=== PATIENT | male | born 1950 | race Caucasian/White ===

== ENCOUNTER 2020-10-05 18:05 | Inpatient (IN) | payer MEDICARE, OTHER ==
--- NOTE | 2020-10-05 18:31 | ED ---
Skin/Abscess/FB HPI - General Stated complaint: male Time Seen by Provider: 10/05/20 18:14 Source: EMS Mode of arrival: EMS - History of Present Illness Initial comments: This is a 69-year-old male who presents emergency department for left buttock abscess. The patient was a transfer from outside hospital or abscess found on computed tomography scan. The patient is really not able to provide much h istory and states he is here because his right arm hurts however according to the notation he's been having redness and swelling to the left buttock region. 4 days. Family's had an abscess in this region before. He's been on Augmentin for 4 days however it seemed to be spinning presented at outside hospital. While there the patient was found to have what appeared to be an abscess which measured 6.3 x 4.1 x 3.4 cm in the left gluteal region. The patient also was found to have a white blood cell count of 14. He was slightly hyponatremic at 129. BUN/creatinine were within normal limits. The patient was started on vancomycin and sent here for possible surgical management. - Related Data Home Medications Medication Instructions Recorded Confirmed Amoxic-Pot Clav 875-125Mg 1 tab PO Q12HR 10/05/20 10/05/20 [Augmentin 875-125] Aspirin EC [Ecotrin Low Dose] 81 mg PO DAILY 10/05/20 10/05/20 Atorvastatin [Lipitor] 10 mg PO HS 10/05/20 10/05/20 Calcium Carbonate/Vitamin D3 1 cap PO DAILY 10/05/20 10/05/20 [Calcium 600 mg-D3 10 Mcg (400 Iu)] Citalopram Hydrobromide [CeleXA] 40 mg PO DAILY 10/05/20 10/05/20 Cyanocobalamin (Vitamin B-12) 1,000 mcg PO DAILY 10/05/20 10/05/20 [Vitamin B-12] Midodrine HCl [ProAmantine] 2.5 mg PO BID 10/05/20 10/05/20 Naproxen 500 mg PO BID 10/05/20 10/05/20 Phenytoin Sodium Extended 100 mg PO BID 10/05/20 10/05/20 [Dilantin] QUEtiapine XR [SEROquel XR] 200 mg PO HS 10/05/20 10/05/20 Sennosides/Docusate Sodium [Senna 1 cap PO DAILY 10/05/20 10/05/20 Plus 8.6-50 mg Softgel] Sodium Chloride Tab 1 gm PO DAILY 10/05/20 10/05/20 hydrOXYzine pamoate [Vistaril] 50 mg PO QID 10/05/20 10/05/20 Allergies Allergy/AdvReac Type Severity Reaction Status Date / Time No Known Allergies Allergy Verified 10/05/20 18:18 Review of Systems ROS Statement: Those systems with pertinent positive or pertinent negative responses have been documented in the HPI. ROS Other: All systems not noted in ROS Statement are negative. Past Medical History Past Medical History: Seizure Disorder Additional Past Medical History / Comment(s): Mentally challenged. General Exam - General Exam Comments Initial Comments: Constitutional: Awake alert Appears comfortable Head: Normocephalic atraumatic Eyes: no conjunctival injection No scleral icterus EOMI Neck: No JVD Supple Heart: Regular rate rhythm normal S1-S2 no murmurs Lungs: Clear to auscultation bilaterally No wheezing No rales Abdomen: Soft nondistended nontender, there is an area of induration and flu ctuance to the left gluteal region which is quite tender to palpation. Extremities: Non edematous DP pulses intact Radial pulses intact Neuro: Awake and alert and at baseline No focal neurologic deficits Psych: Appropriate mood and affect Course Vital Signs 10/05/20 18:11 Temperature 98.8 F Pulse Rate 87 Respiratory 18 Rate Blood Pressure 110/72 O2 Sat by Pulse 98 Oximetry - Reevaluation(s) Reevaluation #1: 10/05/20 19:38 Dr. Cantu in surgery currently. Will call me when he is out. Medical Decision Making - Medical Decision Making Is a 69-year-old male who presents emergency department for a gluteal abscess found on CAT scan outside hospital. The patient was comfortable on arrival. The patient started on Vanco at the outside facility. CT was reviewed and up bloated into our computer system. Blood work was significant for a leukocytosis of 14 and mild hyponatremia. The patient will be started on gentle IV fluids. Nothing by mouth after midnight. I did attempt to contact Dr. acntu however he was in surgery. He will call me back when he is out. Dr. Jovel was notified and accepts the patient for admission. He requested infectious disease people consult that. The patient will be started on Ancef 1 g every 8. Patient is stable for admission at this time. Disposition Clinical Impression: Gluteal abscess Disposition: ADMITTED IP TO THIS HOSP Condition: Stable Referrals: Solomon Ring MD [Primary Care Provider] - 1-2 days
[2020-10-05] MEDS ORDERED: NALOXONE 0.4 MG/ML 1 ML VIAL IV PRN ×2 (20:31→21:40)
[2020-10-05] MEDS ORDERED: MORPHINE SULFATE 4 MG/ML SYRINGE IV PRN (20:31)
[2020-10-05] MEDS ORDERED: LIDOCAINE 1% INJ 10MG/ML (20 ML MDV) SQ ONE (20:56)
--- NOTE | 2020-10-05 21:15 | P.GSCN ---
History of Present Illness Consult date: 10/05/20 History of present illness: Patient was a transfer from [place]. Patient had abscess in his left gluteal regions been going on for several days. He's had abscess before in the past. He does have developmental delay and skull chopper is at bedside. Past Medical History Past Medical History: Seizure Disorder Additional Past Medical History / Comment(s): Mentally challenged. Medications and Allergies Home Medications Medication Instructions Recorded Confirmed Type Amoxic-Pot Clav 875-125Mg 1 tab PO Q12HR 10/05/20 10/05/20 History [Augmentin 875-125] Aspirin EC [Ecotrin Low Dose] 81 mg PO DAILY 10/05/20 10/05/20 History Atorvastatin [Lipitor] 10 mg PO HS 10/05/20 10/05/20 History Calcium Carbonate/Vitamin D3 1 cap PO DAILY 10/05/20 10/05/20 History [Calcium 600 mg-D3 10 Mcg (400 Iu)] Citalopram Hydrobromide [CeleXA] 40 mg PO DAILY 10/05/20 10/05/20 History Cyanocobalamin (Vitamin B-12) 1,000 mcg PO DAILY 10/05/20 10/05/20 History [Vitamin B-12] Midodrine HCl [ProAmantine] 2.5 mg PO BID 10/05/20 10/05/20 History Naproxen 500 mg PO BID 10/05/20 10/05/20 History Phenytoin Sodium Extended 100 mg PO BID 10/05/20 10/05/20 History [Dilantin] QUEtiapine XR [SEROquel XR] 200 mg PO HS 10/05/20 10/05/20 History Sennosides/Docusate Sodium [Senna 1 cap PO DAILY 10/05/20 10/05/20 History Plus 8.6-50 mg Softgel] Sodium Chloride Tab 1 gm PO DAILY 10/05/20 10/05/20 History hydrOXYzine pamoate [Vistaril] 50 mg PO QID 10/05/20 10/05/20 History Allergies Allergy/AdvReac Type Severity Reaction Status Date / Time No Known Allergies Allergy Verified 10/05/20 18:18 Surgical - Exam Osteopathic Statement: *. No significant issues noted on an osteopathic structural exam other than those noted in the History and Physical/Consult. Vital Signs Temp Pulse Resp BP Pulse Ox 98.8 F 87 18 110/72 98 10/05/20 18:11 10/05/20 18:11 10/05/20 18:11 10/05/20 18:11 10/05/20 18:11 - General well developed, well nourished, no distress - Respiratory normal expansion, normal respiratory effort - Abdomen Abdomen: soft, non tender - Integumentary 6 cm x 4 cm area of induration with fluctuance on the left gluteal region. - Psychiatric oriented to time, oriented to person, oriented to place Assessment and Plan Assessment: Left gluteal abscess Plan: Incision and drainage of left gluteal abscess, IV antibiotics
--- NOTE | 2020-10-05 21:16 | P.PCN ---
Date of Procedure: 10/05/20 Preoperative Diagnosis: Left gluteal abscess Postoperative Diagnosis: Same Anesthesia: local Surgeon: Kimani Cantu Estimated Blood Loss (ml): 5 Condition: stable Disposition: floor Description of Procedure: Timeout performed correct patient correct procedure correct site was verified he was thoroughly prepped and draped local anesthetic was used to anesthetize skin and subcutaneous tissues directly over the abscess site on 11 blade scalpel was used to make an incision directly over the abscess site approximately 3 cm long. Copious amounts of purulent material were expressed loculations were broken up patient tolerated this well. Hemostasis was achieved sterile dressing was applied. Cultures were taken by the nurse.
[2020-10-05] MEDS: SODIUM CHLORIDE 0.9% 1,000 ML IV SCH (21:19)
[2020-10-05] MEDS ORDERED: CALCIUM CARBONATE 500 MG CHEWABLE PO PRN (21:40)
[2020-10-05] MEDS ORDERED: ACETAMINOPHEN TAB 325 MG TAB PO PRN (21:40)
[2020-10-05] MEDS ORDERED: ONDANSETRON 4 MG/2 ML VIAL IVP PRN (21:40)
[2020-10-05] MEDS ORDERED: LACTULOSE 20 GM/30 ML CUP PO PRN (21:40)
[2020-10-05] MEDS ORDERED: MAG HYDROX/AL HYDROX/SIMETH 30 ML CUP PO PRN (21:40)
[2020-10-05] MEDS ORDERED: traMADol 50 MG TAB PO PRN (21:40)
--- NOTE | 2020-10-05 21:50 | P.HPIM ---
History of Present Illness H&P Date: 10/05/20 Chief Complaint: Left buttock abscess History of presenting complaint: This is a pleasant 69-year-old patient who follows with visiting physicians Dr. Ring. Most of the history is obtained by the caregiver at the bedside. Patient is a resident of [facility]. About a week ago, patient was noted to have a pimple on the right buttock. It progressively enlarged. Became more painful. This questionable fever at home. [facility] A computed tomography scan showed an area of abscess fluid tracking down the thigh. Patient had been on Augmentin. Dr. laura from general surgery was consulted. In the ER he drained the abscess and significant amount of pus was obtained. At her baseline patient can't feed himself, ambulatory. Takes his own decisions. in place for a court-appointed guardian, is in the process. Review of systems: GEN.: Tired EYES: None HEENT: None NECK: None RESPIRATORY: None CARDIOVASCULAR: None GASTROINTESTINAL: None GENITOURINARY: None MUSCULOSKELETAL: As above LYMPHATICS: None HEMATOLOGICAL: None PSYCHIATRY: Some mental retardation, from both NEUROLOGICAL: None Past medical history to include: Hyperlipidemia, osteoarthritis, hypothyroid, anxiety Social history: At [facility]. Alcohol occasionally. Does smoke occasionally. Takes his own decisions Family history: Reviewed, noncontributory to presentation Physical examination: VITAL SIGNS: 98.1, 75, 16, 127/73, 94% room air GENERAL: BMI 25.1, laying in bed, awake, EYES: Pupils equal. Conjunctiva normal. HEENT: External appearance of nose and ears normal, oral cavity grossly normal. NECK: JVD not raised; masses not palpable. HEART: First and second heart sounds are normal; no edema. LUNGS: Respiratory rate normal; clear to auscultation. ABDOMEN: Soft, nontender, liver spleen not palpable, no masses palpable. PSYCH: Patient is able to answer questions simplel. MUSCULAR skeletal: area of dressing over the left buttock abscess that was drained some surrounding cellulitis and tenderness NEUROLOGICAL: Cranial nerves grossly intact; no facial asymmetry, power and sensation grossly intact, slight dysarthria. LYMPHATICS: No lymph nodes palpable in the axilla and neck INVESTIGATIONS, reviewed in the clinical context: Reviewed from Health System: WBC 14 hemoglobin 11 platelets 372 sodium 129 potassium 3.6 BUN 27 creatinine 0.8 Computed tomography scan of the pelvis: Left hip DJD, left buttock abscess with fluid tracking down the thigh Assessment and plan: -Left buttock abscess that started as a pimple growing for a period of one week. This was drained in the ER by Dr. laura. Patient has no risk factors for MRSA and therefore use IV Ancef. Anti-inflammatory. 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 Await cultures. IV Ancef 1 g every 8. Resume home medications. Dressing changes per surgery. Lovenox for DVT prophylaxis. Care was discussed with the caregiver at the bedside. Past Medical History Past Medical History: Seizure Disorder Additional Past Medical History / Comment(s): Mentally challenged. Medications and Allergies Home Medications Medication Instructions Recorded Confirmed Type Amoxic-Pot Clav 875-125Mg 1 tab PO Q12HR 10/05/20 10/05/20 History [Augmentin 875-125] Aspirin EC [Ecotrin Low Dose] 81 mg PO DAILY 10/05/20 10/05/20 History Atorvastatin [Lipitor] 10 mg PO HS 10/05/20 10/05/20 History Calcium Carbonate/Vitamin D3 1 cap PO DAILY 10/05/20 10/05/20 History [Calcium 600 mg-D3 10 Mcg (400 Iu)] Citalopram Hydrobromide [CeleXA] 40 mg PO DAILY 10/05/20 10/05/20 History Cyanocobalamin (Vitamin B-12) 1,000 mcg PO DAILY 10/05/20 10/05/20 History [Vitamin B-12] Midodrine HCl [ProAmantine] 2.5 mg PO BID 10/05/20 10/05/20 History Naproxen 500 mg PO BID 10/05/20 10/05/20 History Phenytoin Sodium Extended 100 mg PO BID 10/05/20 10/05/20 History [Dilantin] QUEtiapine XR [SEROquel XR] 200 mg PO HS 10/05/20 10/05/20 History Sennosides/Docusate Sodium [Senna 1 cap PO DAILY 10/05/20 10/05/20 History Plus 8.6-50 mg Softgel] Sodium Chloride Tab 1 gm PO DAILY 10/05/20 10/05/20 History hydrOXYzine pamoate [Vistaril] 50 mg PO QID 10/05/20 10/05/20 History Allergies Allergy/AdvReac Type Severity Reaction Status Date / Time No Known Allergies Allergy Verified 10/05/20 18:18 Physical Exam Vitals: Vital Signs Temp Pulse Resp BP Pulse Ox 10/05/20 21:17 85 18 101/60 96 10/05/20 18:11 98.8 F 87 18 110/72 98 Intake and Output 10/05/20 10/05/20 10/05/20 06:59 14:59 22:59 Other: Weight 79.379 kg
[2020-10-05] MEDS: hydrOXYzine pamoate 25 MG CAP PO SCH (22:47)
[2020-10-05] MEDS: FAMOTIDINE 20 MG TAB PO SCH (22:48)
[2020-10-05] MEDS: NAPROXEN 250 MG TAB PO SCH (23:18)
[2020-10-06] MEDS: CYANOCOBALAMIN 500 MCG TAB PO SCH (08:47)
[2020-10-06] MEDS: MIDODRINE 5 MG TAB PO SCH ×2 (08:47→20:22)
[2020-10-06] MEDS: hydrOXYzine pamoate 25 MG CAP PO SCH ×4 (08:47→20:22)
[2020-10-06] MEDS: CITALOPRAM HYDROBROMIDE 20 MG TAB PO SCH (08:47)
[2020-10-06] MEDS: SENNOSIDES-DOCUSATE SODIUM 1 EACH TAB PO SCH (08:47)
[2020-10-06] MEDS: ASPIRIN 81 MG PO SCH (08:48)
[2020-10-06] MEDS: FAMOTIDINE 20 MG TAB PO SCH ×2 (08:48→20:22)
[2020-10-06] MEDS: NAPROXEN 250 MG TAB PO SCH ×3 (08:48→20:23)
[2020-10-06] MEDS: PHENYTOIN SODIUM EXTENDED 100 MG CAP PO SCH ×2 (08:49→20:22)
[2020-10-06] MEDS: SODIUM CHLORIDE TAB 1 GM TAB PO SCH (08:49)
[2020-10-06 09:12] LABS: HCT 24.7 % (39.6-50.0); HGB 8.3 g/dL (13.0-17.0); MCH 28.6 pg (27.0-32.0); MCHC 33.6 g/dL (32.0-37.0); MCV 85.2 fL (80.0-97.0); Mean Platelet Volume 9.8 fL (9.5-12.2); Platelet Count 312 X 10*3/uL (140-440); WBC 16.02 X 10*3/uL (4.50-10.00)
[2020-10-06 09:50] LABS: African American GFR (CKD) 118.9 (60.0-200.0); Albumin 2.8 g/dL (3.80-4.90); Albumin/Globulin Ratio 1.47 (1.60-3.17); Anion Gap 6.2 mmol/L (4.00-12.00); Calcium 7.7 mg/dL (8.7-10.3); Carbon Dioxide 24.8 mmol/L (21.6-31.8); Globulin 1.9 g/dL (1.6-3.3); Non-African American GFR(CKD) 102.6 (60.0-200.0); Potassium 3.8 mmol/L (3.5-5.5); Total Bilirubin 0.5 mg/dL (0.3-1.2); Total Protein 4.7 g/dL (6.2-8.2)
[2020-10-06 10:15] LABS: Basophils # (A) 0.05 X 10*3/uL (0.00-0.10); Basophils % (A) 0.3 %; Eosinophils # (A) 0.28 X 10*3/uL (0.04-0.35); Eosinophils % (A) 1.7 %; Lymphocytes % (A) 3.7 %; Monocytes % (A) 6.2 %; Neutrophils # (A) 13.89 X 10*3/uL (1.80-7.70); Neutrophils % (A) 86.9 %
--- NOTE | 2020-10-06 11:45 | P.PN ---
Subjective Progress Note Date: 10/06/20 Patient doing well pain improved today Objective - Vital Signs Vital signs: Vital Signs Temp 98.9 F 10/06/20 07:41 Pulse 81 10/06/20 07:41 Resp 17 10/06/20 07:41 BP 111/69 10/06/20 07:41 Pulse Ox 96 10/06/20 07:41 Intake & Output 10/05/20 10/06/20 10/06/20 18:59 06:59 18:59 Weight 79.379 kg 79.379 kg Other: Voiding Method Diaper Diaper # Voids 1 # Bowel Movements 0 - Constitutional General appearance: Present: cooperative - Cardiovascular Rhythm: regular - Integumentary Integumentary Comment(s): Abscess with purulent drainage, erythemia and induration improved - Labs CBC & Chem 7: 10/06/20 05:36 10/06/20 05:36 Labs: Abnormal Lab Results - Last 24 Hours (Table) 10/06/20 10/06/20 Range/Units 05:36 05:36 WBC 16.02 H (4.50-10.00) X 10*3/uL RBC 2.90 L (4.40-5.60) X 10*6/uL Hgb 8.3 L (13.0-17.0) g/dL Hct 24.7 L (39.6-50.0) % Immature Gran # 0.20 H (0.00-0.04) X 10*3/uL Neutrophils # 13.89 H (1.80-7.70) X 10*3/uL Lymphocytes # 0.60 L (0.90-5.00) X 10*3/uL Sodium 130 L (135-145) mmol/L BUN/Creatinine Ratio 25.00 H (12.00-20.00) Ratio Glucose 127 H (70-110) mg/dL Calcium 7.7 L (8.7-10.3) mg/dL Alkaline Phosphatase 151 H (41-126) U/L Total Protein 4.7 L (6.2-8.2) g/dL Albumin 2.80 L (3.80-4.90) g/dL Albumin/Globulin Ratio 1.47 L (1.60-3.17) g/dL Microbiology - Last 24 Hours (Table) 10/05/20 21:30 Gram Stain - Preliminary Other - Other Wound Culture - Preliminary 10/05/20 21:30 Anaerobic Culture - Preliminary Buttock Assessment and Plan Assessment: Left gluteal abscess Plan: Cont abx per primary, cultures pending
--- NOTE | 2020-10-06 14:26 | P.PN ---
Progress Note - Text Progress Note Date: 10/06/20 Chief Complaint: Left buttock abscess History of presenting complaint: This is a pleasant 69-year-old patient who follows with visiting physicians Dr. Ring. Most of the history is obtained by the caregiver at the bedside. Patient is a resident of [facility]. About a week ago, patient was noted to have a pimple on the right buttock. It progressively enlarged. Became more painful. This questionable fever at home. Patient was taken down to [facility]. A computed tomography scan showed an area of abscess fluid tracking down the thigh. Patient had been on Augmentin. Dr. laura from general surgery was consulted. In the ER he drained the abscess and significant amount of pus was obtained. At her baseline patient can't feed himself, ambulatory. Takes his own decisions. in place for a court-appointed guardian, is in the process. October 06: Reclining in bed. Comfortable. Pain well controlled. Oral intake fair. On IV Ancef. Review of systems: Was done for constitutional, cardiovascular, GI, pulmonary. relevant finding as above Active Medications Acetaminophen (Acetaminophen Tab 325 Mg Tab) 650 mg PO Q6HR PRN PRN Reason: Mild Pain or Fever > 100.5 Al Hydroxide/Mg Hydroxide (Mag Hydrox/Al Hydrox/Simeth 30 Ml Cup) 15 ml PO Q6HR PRN PRN Reason: Indigestion Aspirin (Aspirin 81 Mg) 81 mg PO DAILY COUNT INCLUDES THE [facility] Last Admin: 10/06/20 08:48 Dose: 81 mg Documented by: Atorvastatin Calcium (Atorvastatin 10 Mg Tab) 10 mg PO [facility] Calcium Carbonate/Glycine (Calcium Carbonate 500 Mg Chewable) 1,000 mg PO Q4HR PRN PRN Reason: Dyspepsia Citalopram Hydrobromide (Citalopram Hydrobromide 20 Mg Tab) 40 mg PO DAILY COUNT INCLUDES THE [facility] Last Admin: 10/06/20 08:47 Dose: 40 mg Documented by: Cyanocobalamin (Cyanocobalamin 500 Mcg Tab) 1,000 mcg PO DAILY COUNT INCLUDES THE [facility] Last Admin: 10/06/20 08:47 Dose: 1,000 mcg Documented by: Famotidine (Famotidine 20 Mg Tab) 20 mg PO BID COUNT INCLUDES THE [facility] Last Admin: 10/06/20 08:48 Dose: 20 mg Documented by: Hydroxyzine Pamoate (Hydroxyzine Pamoate 25 Mg Cap) 50 mg PO QID COUNT INCLUDES THE [facility] Last Admin: 10/06/20 08:47 Dose: 50 mg Documented by: Cefazolin Sodium 1,000 mg/ (Sodium Chloride) 50 mls @ 100 mls/hr IVPB Q8H COUNT INCLUDES THE [facility] Last Admin: 10/06/20 05:22 Dose: 100 mls/hr Documented by: Sodium Chloride (Saline 0.9%) 1,000 mls @ 75 mls/hr IV .[id number] COUNT INCLUDES THE [facility] Last Admin: 10/05/20 21:19 Dose: 75 mls/hr Documented by: Lactulose (Lactulose 20 Gm/30 Ml Cup) 20 gm PO DAILY PRN PRN Reason: Constipation Midodrine (Midodrine 5 Mg Tab) 2.5 mg PO BID COUNT INCLUDES THE [facility] Last Admin: 10/06/20 08:47 Dose: 2.5 mg Documented by: Morphine Sulfate (Morphine Sulfate 4 Mg/Ml Syringe) 4 mg IV Q4HR PRN PRN Reason: Severe Pain Naloxone HCl (Naloxone 0.4 Mg/Ml 1 Ml Vial) 0.2 mg IV Q2M PRN PRN Reason: Opioid Reversal Naloxone HCl (Naloxone 0.4 Mg/Ml 1 Ml Vial) 0.2 mg IV Q2M PRN PRN Reason: Opioid Reversal Naproxen (Naproxen 250 Mg Tab) 250 mg PO TID COUNT INCLUDES THE [facility] Last Admin: 10/06/20 08:48 Dose: 250 mg Documented by: Ondansetron HCl (Ondansetron 4 Mg/2 Ml Vial) 4 mg IVP Q8HR PRN PRN Reason: Nausea And Vomiting Phenytoin Sodium (Phenytoin Sodium Extended 100 Mg Cap) 100 mg PO BID COUNT INCLUDES THE [facility] Last Admin: 10/06/20 08:49 Dose: 100 mg Documented by: Quetiapine Fumarate (Quetiapine 100 Mg Tab) 100 mg PO BID COUNT INCLUDES THE [facility] Senna/Docusate Sodium (Sennosides-Docusate Sodium 1 Each Tab) 1 each PO DAILY COUNT INCLUDES THE [facility] Last Admin: 10/06/20 08:47 Dose: 1 each Documented by: Sodium Chloride (Sodium Chloride Tab 1 Gm Tab) 1 gm PO DAILY COUNT INCLUDES THE [facility] Last Admin: 10/06/20 08:49 Dose: 1 gm Documented by: Tramadol HCl (Tramadol 50 Mg Tab) 50 mg PO Q6H PRN PRN Reason: Moderate Pain Past medical history to include: Hyperlipidemia, osteoarthritis, hypothyroid, anxiety Social history: At [facility] home. Alcohol occasionally. Does smoke occasionally. Takes his own decisions Family history: Reviewed, noncontributory to presentation Physical examination: VITAL SIGNS: 98.9, 81, 17, 111/69, 96% room air GENERAL: Reclining in bed, comfortable EYES: Pupils equal. Conjunctiva normal.. NECK: JVD not raised; masses not palpable. HEART: First and second heart sounds are normal; no edema. LUNGS: Respiratory rate normal; clear to auscultation. ABDOMEN: Soft, nontender, liver spleen not palpable, no masses palpable. PSYCH: Patient is able to answer questions simple. MUSCULAR skeletal: area of dressing over the left buttock abscess ,some surrounding cellulitis and tenderness NEUROLOGICAL: dysarthria. INVESTIGATIONS, reviewed in the clinical context: October 06: WBC 16 hemoglobin 8.3 potassium 3.8 sodium 1:30 creatinine 0.6 Reviewed from [facility]: WBC 14 hemoglobin 11 platelets 372 sodium 129 potassium 3.6 BUN 27 creatinine 0.8 Computed tomography scan of the pelvis: Left hip DJD, left buttock abscess with fluid tracking down the thigh Assessment and plan: -Left buttock abscess that started as a pimple growing for a period of one week. This was drained in the ER by Dr. laura. Wound care per surgery. IV Ancef. 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 Await wound culture. Other medications to continue.
[2020-10-06] MEDS: SODIUM CHLORIDE 0.9% 1,000 ML IV SCH (16:20)
[2020-10-06] MEDS: QUEtiapine 100 MG TAB PO SCH (20:22)
[2020-10-06] MEDS: ATORVASTATIN 10 MG TAB PO SCH (20:22)
[2020-10-06] MEDS ORDERED: VANCOMYCIN IV PER PHARMACY 1 EACH MISC MISCELLANE PRN (21:52)
--- NOTE | 2020-10-06 21:57 | P.CONS ---
History of Present Illness - Reason for Consult Consult date: 10/06/20 left gluteal abscess Requesting physician: Jaime Jovel - Chief Complaint left gluteal pain and redness x 4 days - History of Present Illness History of present illness : Patient is a 69-year male presenting to the ER last evening for evaluation of left gluteal abscess apparently the patient has been going redness and swelling to left gluteal area for about 4 days patient has been treated with an oral Augmentin for 4 days however they seem to be getting worse patient was taken to an outside facility the patient did have a CT with evidence of a left gluteal abscess patient received a dose of vancomycin at their facility and patient subsequently transferred to [facility] for further evaluation patient was evaluated by general surgery and the patient did have a drainage of the left gluteal abscess cultures were obtained and the patient was started on cefazolin was admitted to hospital especially was consulted for further management of antibiotic therapy patient on presentation to the hospital is afebrile and no fever has been recorded subseq uently did have white count of 16.02 left shift kidney function was normal Review of system: Positive point has been mentioned in HPI rest of the systems are negative Past medical history : Reviewed, documented below Past surgical history : Reviewed, documented below Social history: Reviewed, documented below Medications: Reviewed, as documented below GENERAL DESCRIPTION: Elderly male lying in bed, no distress. No tachypnea or accessory muscle of respiration use. HEENT: Shows Pallor , no scleral icterus. Oral mucous membrane is dry. NECK: Trachea central, no thyromegaly. LUNGS: Unlabored breathing. Clear to auscultation anteriorly. No wheeze or crackle. HEART: S1, S2, regular rate and rhythm. ABDOMEN: Soft, no tenderness , guarding or rigidity EXTREMITIES: No edema of feet. SKIN: No rash, no masses palpable. Left gluteal area did have a swelling and redness wound is currently packed NEUROLOGICAL: The patient is awake, alert, oriented x1, mood and affect normal. LABS AND RADIOLOGY: Reviewed results see below Assessment : Patient with a left gluteal abscess s/p drainage in this patient seem to have failed to respond to the outpatient oral Augmentin therapy concern for possible community associated MRSA, patient did have normal kidney function Plan: 1-discontinue cefazolin 2-vancomycin pharmacy to dose her with a target trough of 15 while watching her kidney function and Vanco trough closely. 3-iodoform packing of the wound We will follow on clinical condition and cultures to further adjust medication if needed Thank you for this consultation we will follow the patient along with you Past Medical History Past Medical History: Seizure Disorder Additional Past Medical History / Comment(s): Mentally challenged. History of Any Multi-Drug Resistant Organisms: None Reported Additional Past Surgical History / Comment(s): Left arm broken; surgical repair. Shunt placed 1970. Past Anesthesia/Blood Transfusion Reactions: No Reported Reaction Additional Psychological History / Comment(s): pt. mentally challenged. Smoking Status: Former smoker Medications and Allergies Home Medications Medication Instructions Recorded Confirmed Type Amoxic-Pot Clav 875-125Mg 1 tab PO Q12HR 10/05/20 10/05/20 History [Augmentin 875-125] Aspirin EC [Ecotrin Low Dose] 81 mg PO DAILY 10/05/20 10/05/20 History Atorvastatin [Lipitor] 10 mg PO HS 10/05/20 10/05/20 History Calcium Carbonate/Vitamin D3 1 cap PO DAILY 10/05/20 10/05/20 History [Calcium 600 mg-D3 10 Mcg (400 Iu)] Citalopram Hydrobromide [CeleXA] 40 mg PO DAILY 10/05/20 10/05/20 History Cyanocobalamin (Vitamin B-12) 1,000 mcg PO DAILY 10/05/20 10/05/20 History [Vitamin B-12] Midodrine HCl [ProAmantine] 2.5 mg PO BID 10/05/20 10/05/20 History Naproxen 500 mg PO BID 10/05/20 10/05/20 History Phenytoin Sodium Extended 100 mg PO BID 10/05/20 10/05/20 History [Dilantin] QUEtiapine XR [SEROquel XR] 200 mg PO HS 10/05/20 10/05/20 History Sennosides/Docusate Sodium [Senna 1 cap PO DAILY 10/05/20 10/05/20 History Plus 8.6-50 mg Softgel] Sodium Chloride Tab 1 gm PO DAILY 10/05/20 10/05/20 History hydrOXYzine pamoate [Vistaril] 50 mg PO QID 10/05/20 10/05/20 History Allergies Allergy/AdvReac Type Severity Reaction Status Date / Time No Known Allergies Allergy Verified 10/05/20 18:18 Physical Exam Vitals: Vital Signs Temp Pulse Pulse Resp BP BP Pulse Ox 10/06/20 07:41 98.9 F 81 17 111/69 96 10/06/20 02:00 98.3 F 91 18 109/56 96 10/05/20 21:48 98.3 F 85 18 112/58 99 10/05/20 21:17 85 18 101/60 96 10/05/20 18:11 98.8 F 87 18 110/72 98 Intake and Output 10/05/20 10/06/20 10/06/20 22:59 06:59 14:59 Other: Voiding Method Diaper Diaper # Voids 1 # Bowel Movements 0 Weight 79.379 kg Results CBC & Chem 7: 10/06/20 05:36 10/06/20 05:36 Labs: Abnormal Lab Results - Last 24 Hours (Table) 10/06/20 10/06/20 Range/Units 05:36 05:36 WBC 16.02 H (4.50-10.00) X 10*3/uL RBC 2.90 L (4.40-5.60) X 10*6/uL Hgb 8.3 L (13.0-17.0) g/dL Hct 24.7 L (39.6-50.0) % Immature Gran # 0.20 H (0.00-0.04) X 10*3/uL Neutrophils # 13.89 H (1.80-7.70) X 10*3/uL Lymphocytes # 0.60 L (0.90-5.00) X 10*3/uL Sodium 130 L (135-145) mmol/L BUN/Creatinine Ratio 25.00 H (12.00-20.00) Ratio Glucose 127 H (70-110) mg/dL Calcium 7.7 L (8.7-10.3) mg/dL Alkaline Phosphatase 151 H (41-126) U/L Total Protein 4.7 L (6.2-8.2) g/dL Albumin 2.80 L (3.80-4.90) g/dL Albumin/Globulin Ratio 1.47 L (1.60-3.17) g/dL Microbiology - Last 24 Hours (Table) 10/05/20 21:30 Gram Stain - Preliminary Other - Other Wound Culture - Preliminary 10/05/20 21:30 Anaerobic Culture - Preliminary Buttock
[2020-10-06] MEDS ORDERED: VANCOMYCIN 1,500 MG in SODIUM CHLORIDE 0.9% 250 ML IVPB ONE (22:00)
[2020-10-06] MEDS ORDERED: VANCOMYCIN 1,500 MG in SODIUM CHLORIDE 0.9% 250 ML IVPB SCH (23:45)
[2020-10-07] MEDS: SODIUM CHLORIDE 0.9% 1,000 ML IV SCH ×2 (02:28→20:03)
[2020-10-07] MEDS: VANCOMYCIN 1,500 MG in SODIUM CHLORIDE 0.9% 250 ML IVPB SCH ×3 (05:38→20:45)
[2020-10-07 07:04] LABS: African American GFR (CKD) >90 (>60 ml/min/1.73 sqM); Anion Gap 6 mmol/L; Blood Urea Nitrogen 14 mg/dL (9-20); Carbon Dioxide 22 mmol/L (22-30); Chloride 100 mmol/L (98-107); Glucose 80 mg/dL (74-99); Non-African American GFR(CKD) >90 (>60 ml/min/1.73 sqM); Potassium 3.5 mmol/L (3.5-5.1); Sodium 128 mmol/L (137-145)
[2020-10-07] MEDS: MIDODRINE 5 MG TAB PO SCH ×2 (09:21→20:43)
[2020-10-07] MEDS: CITALOPRAM HYDROBROMIDE 20 MG TAB PO SCH (09:21)
[2020-10-07] MEDS: ASPIRIN 81 MG PO SCH (09:21)
[2020-10-07] MEDS: CYANOCOBALAMIN 500 MCG TAB PO SCH (09:21)
[2020-10-07] MEDS: SENNOSIDES-DOCUSATE SODIUM 1 EACH TAB PO SCH (09:21)
[2020-10-07] MEDS: FAMOTIDINE 20 MG TAB PO SCH ×2 (09:22→20:43)
[2020-10-07] MEDS: hydrOXYzine pamoate 25 MG CAP PO SCH ×4 (09:22→20:44)
[2020-10-07] MEDS: QUEtiapine 100 MG TAB PO SCH ×2 (09:24→20:44)
[2020-10-07] MEDS: SODIUM CHLORIDE TAB 1 GM TAB PO SCH ×2 (09:24→20:44)
[2020-10-07] MEDS: NAPROXEN 250 MG TAB PO SCH ×3 (09:24→20:44)
[2020-10-07] MEDS: PHENYTOIN SODIUM EXTENDED 100 MG CAP PO SCH ×2 (09:24→20:44)
--- NOTE | 2020-10-07 10:29 | P.PN ---
Subjective Progress Note Date: 10/07/20 Patient doing well pain improved today, cultures growing persumed MRSA Objective - Vital Signs Vital signs: Vital Signs Temp 98.5 F 10/07/20 08:00 Pulse 77 10/07/20 08:00 Resp 18 10/07/20 08:00 BP 160/71 10/07/20 08:00 Pulse Ox 95 10/07/20 08:00 Intake & Output 10/06/20 10/07/20 10/07/20 18:59 06:59 18:59 Intake Total 900 Balance 900 Intake: Intake, IV Titration 900 Amount Sodium Chloride 0.9% 1, 900 000 ml @ 75 mls/hr IV . [id number] [facility] Rx#:[id number] Other: Voiding Method Diaper Diaper Diaper # Voids 2 # Bowel Movements 0 - Constitutional General appearance: Present: cooperative - Labs CBC & Chem 7: 10/06/20 05:36 10/07/20 05:27 Labs: Abnormal Lab Results - Last 24 Hours (Table) 10/07/20 Range/Units 05:27 Sodium 128 L (137-145) mmol/L Creatinine 0.51 L (0.66-1.25) mg/dL Osmolality 264 L (280-301) mosm/kg Calcium 8.0 L (8.4-10.2) mg/dL Microbiology - Last 24 Hours (Table) 10/05/20 21:30 Gram Stain - Preliminary Other - Other Wound Culture - Preliminary Presumptive MRSA Assessment and Plan Assessment: Left gluteal abscess Plan: Cont abx per primary/ID, cultures pending. Consult to wound care for further wound managment. No plans for any further surgical intervention
--- NOTE | 2020-10-07 14:18 | P.PN ---
Progress Note - Text Progress Note Date: 10/07/20 Chief Complaint: Left buttock abscess History of presenting complaint: This is a pleasant 69-year-old patient who follows with visiting physicians Dr. Ring. Most of the history is obtained by the caregiver at the bedside. Patient is a resident of [facility]. About a week ago, patient was noted to have a pimple on the right buttock. It progressively enlarged. Became more painful. This questionable fever at home. Patient was taken down to [facility]. A computed tomography scan showed an area of abscess fluid tracking down the thigh. Patient had been on Augmentin. Dr. laura from general surgery was consulted. In the ER he drained the abscess and significant amount of pus was obtained. At her baseline patient can't feed himself, ambulatory. Takes his own decisions. in place for a court-appointed guardian, is in the process. October 06: Reclining in bed. Comfortable. Pain well controlled. Oral intake fair. On IV Ancef. October 07: Reclining chair. Oral intake good. Pain well controlled. On IV vancomycin Wound care per ID/surgery. Wound cultures presumptive MRSA Review of systems: Was done for constitutional, cardiovascular, GI, pulmonary. relevant finding as above Active Medications Acetaminophen (Acetaminophen Tab 325 Mg Tab) 650 mg PO Q6HR PRN PRN Reason: Mild Pain or Fever > 100.5 Al Hydroxide/Mg Hydroxide (Mag Hydrox/Al Hydrox/Simeth 30 Ml Cup) 15 ml PO Q6HR PRN PRN Reason: Indigestion Aspirin (Aspirin 81 Mg) 81 mg PO DAILY [facility] Last Admin: 10/07/20 09:21 Dose: 81 mg Documented by: Atorvastatin Calcium (Atorvastatin 10 Mg Tab) 10 mg PO HS [facility] Last Admin: 10/06/20 20:22 Dose: 10 mg Documented by: Calcium Carbonate/Glycine (Calcium Carbonate 500 Mg Chewable) 1,000 mg PO Q4HR PRN PRN Reason: Dyspepsia Citalopram Hydrobromide (Citalopram Hydrobromide 20 Mg Tab) 40 mg PO DAILY [facility] Last Admin: 10/07/20 09:21 Dose: 40 mg Documented by: Cyanocobalamin (Cyanocobalamin 500 Mcg Tab) 1,000 mcg PO DAILY [facility] Last Admin: 10/07/20 09:21 Dose: 1,000 mcg Documented by: Famotidine (Famotidine 20 Mg Tab) 20 mg PO BID [facility] Last Admin: 10/07/20 09:22 Dose: 20 mg Documented by: Hydroxyzine Pamoate (Hydroxyzine Pamoate 25 Mg Cap) 50 mg PO QID [facility] Last Admin: 10/07/20 09:22 Dose: 50 mg Documented by: Sodium Chloride (Saline 0.9%) 1,000 mls @ 75 mls/hr IV .[id number] [facility] Last Admin: 10/07/20 02:28 Dose: Not Given Documented by: Vancomycin HCl 1,500 mg/ (Sodium Chloride) 250 mls @ 125 mls/hr IVPB Q8H [facility] Last Admin: 10/07/20 05:38 Dose: 125 mls/hr Documented by: Lactulose (Lactulose 20 Gm/30 Ml Cup) 20 gm PO DAILY PRN PRN Reason: Constipation Midodrine (Midodrine 5 Mg Tab) 2.5 mg PO BID [facility] Last Admin: 10/07/20 09:21 Dose: Not Given Documented by: Miscellaneous Information (Vancomycin Trough Due 1 Each Misc) 0 each MISCELLANE DIRECTED ONE Stop: 10/08/20 05:01 Morphine Sulfate (Morphine Sulfate 4 Mg/Ml Syringe) 4 mg IV Q4HR PRN PRN Reason: Severe Pain Naloxone HCl (Naloxone 0.4 Mg/Ml 1 Ml Vial) 0.2 mg IV Q2M PRN PRN Reason: Opioid Reversal Naloxone HCl (Naloxone 0.4 Mg/Ml 1 Ml Vial) 0.2 mg IV Q2M PRN PRN Reason: Opioid Reversal Naproxen (Naproxen 250 Mg Tab) 250 mg PO TID [facility] Last Admin: 10/07/20 09:24 Dose: 250 mg Documented by: Ondansetron HCl (Ondansetron 4 Mg/2 Ml Vial) 4 mg IVP Q8HR PRN PRN Reason: Nausea And Vomiting Phenytoin Sodium (Phenytoin Sodium Extended 100 Mg Cap) 100 mg PO BID [facility] Last Admin: 10/07/20 09:24 Dose: 100 mg Documented by: Quetiapine Fumarate (Quetiapine 100 Mg Tab) 100 mg PO BID [facility] Last Admin: 10/07/20 09:24 Dose: 100 mg Documented by: Senna/Docusate Sodium (Sennosides-Docusate Sodium 1 Each Tab) 1 each PO DAILY [facility] Last Admin: 10/07/20 09:21 Dose: 1 each Documented by: Sodium Chloride (Sodium Chloride Tab 1 Gm Tab) 1 gm PO DAILY [facility] Last Admin: 10/07/20 09:24 Dose: 1 gm Documented by: Tramadol HCl (Tramadol 50 Mg Tab) 50 mg PO Q6H PRN PRN Reason: Moderate Pain Past medical history to include: Hyperlipidemia, osteoarthritis, hypothyroid, anxiety Social history: At [facility]. Alcohol occasionally. Does smoke occasionally. Takes his own decisions Family history: Reviewed, noncontributory to presentation Physical examination: VITAL SIGNS: 98.5, 77, 18, 160/71, 95% room air GENERAL: Reclining in chair, comfortable EYES: Pupils equal. Conjunctiva normal.. NECK: JVD not raised; masses not palpable. HEART: First and second heart sounds are normal; no edema. LUNGS: Respiratory rate normal; clear to auscultation. ABDOMEN: Soft, nontender, liver spleen not palpable, no masses palpable. PSYCH: Patient is able to answer questions simple. MUSCULAR skeletal: area of dressing over the left buttock abscess ,some surrounding cellulitis and tenderness NEUROLOGICAL: dysarthria. INVESTIGATIONS, reviewed in the clinical context: October 07: Sodium 128 potassium 3.5 creatinine 0.51. Serum osmolality 264 Wound culture: Presumptive MRSA October 06: WBC 16 hemoglobin 8.3 potassium 3.8 sodium 1:30 creatinine 0.6 Reviewed from [facility]: WBC 14 hemoglobin 11 platelets 372 sodium 129 potassium 3.6 BUN 27 creatinine 0.8 Computed tomography scan of the pelvis: Left hip DJD, left buttock abscess with fluid tracking down the thigh Assessment and plan: -Left buttock abscess that started as a pimple growing for a period of one week. This was drained in the ER by Dr. laura. Wound care per surgery. IV vancomycin. 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 Other medications to continue. Wound care. DC IV fluids
--- NOTE | 2020-10-07 18:23 | PN ---
PROGRESS NOTE DATE OF SERVICE: 10/07/2020 REASON FOR FOLLOWUP: Left gluteal MRSA abscess and cellulitis. INTERVAL HISTORY: The patient is currently afebrile. The patient is breathing comfortably on room air. The patient is unable to provide any history. No vomiting, diarrhea or other changes reported by the nursing staff. PHYSICAL EXAMINATION: On examination, blood pressure 151/73 with a pulse of 69, temperature 97.6. He is 100% on room air. GENERAL DESCRIPTION: General description is an elderly male lying in bed in no distress. RESPIRATORY SYSTEM: Unlabored breathing. Clear to auscultation anteriorly. HEART: S1, S2. Regular rate and rhythm. ABDOMEN: Soft. No tenderness. Left gluteal area did have some swelling and redness. Wound is not that deep that may need to be packed. Did have some drainage. LABS: BUN of 14, creatinine 0.51. DIAGNOSTIC IMPRESSION AND PLAN: Patient with a left gluteal abscess, status post drainage. Still having extensive infection. The patient vancomycin. Will need a PICC line for outpatient antibiotic. Dry protective dressing to the area to absorb the drainage and continue supportive care. MMODL / IJN: [id number] /
[2020-10-07] MEDS: ATORVASTATIN 10 MG TAB PO SCH (20:43)
[2020-10-08] MEDS ORDERED: VANCOMYCIN TROUGH DUE 1 EACH MISC MISCELLANE ONE (05:00)
[2020-10-08 05:27] LABS: Basophils % (A) 0 %; Eosinophils # (A) 0.3 k/uL (0-0.7); Eosinophils % (A) 3 %; HCT 27.4 % (39.0-53.0); HGB 9.9 gm/dL (13.0-17.5); Lymphocytes # (A) 0.7 k/uL (1.0-4.8); Lymphocytes % (A) 7 %; MCH 30.8 pg (25.0-35.0); MCHC 36.1 g/dL (31.0-37.0); MCV 85.4 fL (80.0-100.0); Mean Platelet Volume 6.9; Monocytes # (A) 0.3 k/uL (0-1.0); Monocytes % (A) 3 %; Neutrophils % (A) 84 %; Platelet Count 432 k/uL (150-450); RDW 13.7 % (11.5-15.5); WBC 10.6 k/uL (3.8-10.6)
[2020-10-08 05:45] LABS: African American GFR (CKD) >90 (>60 ml/min/1.73 sqM); Anion Gap 9 mmol/L; Blood Urea Nitrogen 13 mg/dL (9-20); Calcium 8.3 mg/dL (8.4-10.2); Carbon Dioxide 21 mmol/L (22-30); Chloride 98 mmol/L (98-107); Glucose 86 mg/dL (74-99); Non-African American GFR(CKD) >90 (>60 ml/min/1.73 sqM); Potassium 3.6 mmol/L (3.5-5.1); Sodium 128 mmol/L (137-145)
[2020-10-08] MEDS: VANCOMYCIN 1,500 MG in SODIUM CHLORIDE 0.9% 250 ML IVPB SCH ×3 (06:45→21:53)
[2020-10-08] MEDS: CITALOPRAM HYDROBROMIDE 20 MG TAB PO SCH (08:07)
[2020-10-08] MEDS: FAMOTIDINE 20 MG TAB PO SCH ×2 (08:07→21:55)
[2020-10-08] MEDS: hydrOXYzine pamoate 25 MG CAP PO SCH ×4 (08:07→21:54)
[2020-10-08] MEDS: MIDODRINE 5 MG TAB PO SCH ×2 (08:08→21:54)
[2020-10-08] MEDS: ASPIRIN 81 MG PO SCH (08:08)
[2020-10-08] MEDS: SENNOSIDES-DOCUSATE SODIUM 1 EACH TAB PO SCH (08:08)
[2020-10-08] MEDS: CYANOCOBALAMIN 500 MCG TAB PO SCH (08:08)
[2020-10-08] MEDS: QUEtiapine 100 MG TAB PO SCH ×2 (08:10→22:00)
[2020-10-08] MEDS: NAPROXEN 250 MG TAB PO SCH ×3 (08:10→21:55)
[2020-10-08] MEDS: PHENYTOIN SODIUM EXTENDED 100 MG CAP PO SCH ×2 (08:10→22:00)
[2020-10-08] MEDS: SODIUM CHLORIDE TAB 1 GM TAB PO SCH ×2 (08:11→22:00)
--- NOTE | 2020-10-08 12:59 | P.PN ---
Progress Note - Text Progress Note Date: 10/08/20 Chief Complaint: Left buttock abscess History of presenting complaint: This is a pleasant 69-year-old patient who follows with visiting physicians Dr. Ring. Most of the history is obtained by the caregiver at the bedside. Patient is a resident of [facility]. About a week ago, patient was noted to have a pimple on the right buttock. It progressively enlarged. Became more painful. This questionable fever at home. Patient was taken down to [facility]. A computed tomography scan showed an area of abscess fluid tracking down the thigh. Patient had been on Augmentin. Dr. laura from general surgery was consulted. In the ER he drained the abscess and significant amount of pus was obtained. At her baseline patient can't feed himself, ambulatory. Takes his own decisions. in place for a court-appointed guardian, is in the process. October 06: Reclining in bed. Comfortable. Pain well controlled. Oral intake fair. On IV Ancef. October 07: Reclining chair. Oral intake good. Pain well controlled. On IV vancomycin Wound care per ID/surgery. Wound cultures presumptive MRSA October 08: Laying in bed. Pain control. On IV vancomycin. Still significant cellulitis wound per ID. oral intake good Review of systems: Was done for constitutional, cardiovascular, GI, pulmonary. relevant finding as above Active Medications Acetaminophen (Acetaminophen Tab 325 Mg Tab) 650 mg PO Q6HR PRN PRN Reason: Mild Pain or Fever > 100.5 Al Hydroxide/Mg Hydroxide (Mag Hydrox/Al Hydrox/Simeth 30 Ml Cup) 15 ml PO Q6HR PRN PRN Reason: Indigestion Aspirin (Aspirin 81 Mg) 81 mg PO DAILY [facility] Last Admin: 10/08/20 08:08 Dose: 81 mg Documented by: Atorvastatin Calcium (Atorvastatin 10 Mg Tab) 10 mg PO HS [facility] Last Admin: 10/07/20 20:43 Dose: 10 mg Documented by: Calcium Carbonate/Glycine (Calcium Carbonate 500 Mg Chewable) 1,000 mg PO Q4HR PRN PRN Reason: Dyspepsia Citalopram Hydrobromide (Citalopram Hydrobromide 20 Mg Tab) 40 mg PO DAILY [facility] Last Admin: 10/08/20 08:07 Dose: 40 mg Documented by: Cyanocobalamin (Cyanocobalamin 500 Mcg Tab) 1,000 mcg PO DAILY [facility] Last Admin: 10/08/20 08:08 Dose: 1,000 mcg Documented by: Famotidine (Famotidine 20 Mg Tab) 20 mg PO BID [facility] Last Admin: 10/08/20 08:07 Dose: 20 mg Documented by: Hydroxyzine Pamoate (Hydroxyzine Pamoate 25 Mg Cap) 50 mg PO QID [facility] Last Admin: 10/08/20 12:04 Dose: 50 mg Documented by: Vancomycin HCl 1,500 mg/ (Sodium Chloride) 250 mls @ 125 mls/hr IVPB Q12H [facility] Last Admin: 10/08/20 08:11 Dose: 125 mls/hr Documented by: Lactulose (Lactulose 20 Gm/30 Ml Cup) 20 gm PO DAILY PRN PRN Reason: Constipation Midodrine (Midodrine 5 Mg Tab) 2.5 mg PO BID [facility] Last Admin: 10/08/20 08:08 Dose: 2.5 mg Documented by: Miscellaneous Information (Vancomycin Trough Due 1 Each Misc) 0 each MISCELLANE DIRECTED ONE Stop: 10/09/20 08:01 Morphine Sulfate (Morphine Sulfate 4 Mg/Ml Syringe) 4 mg IV Q4HR PRN PRN Reason: Severe Pain Naloxone HCl (Naloxone 0.4 Mg/Ml 1 Ml Vial) 0.2 mg IV Q2M PRN PRN Reason: Opioid Reversal Naloxone HCl (Naloxone 0.4 Mg/Ml 1 Ml Vial) 0.2 mg IV Q2M PRN PRN Reason: Opioid Reversal Naproxen (Naproxen 250 Mg Tab) 250 mg PO TID [facility] Last Admin: 10/08/20 08:10 Dose: 250 mg Documented by: Ondansetron HCl (Ondansetron 4 Mg/2 Ml Vial) 4 mg IVP Q8HR PRN PRN Reason: Nausea And Vomiting Phenytoin Sodium (Phenytoin Sodium Extended 100 Mg Cap) 100 mg PO BID [facility] Last Admin: 10/08/20 08:10 Dose: 100 mg Documented by: Quetiapine Fumarate (Quetiapine 100 Mg Tab) 100 mg PO BID [facility] Last Admin: 10/08/20 08:10 Dose: 100 mg Documented by: Senna/Docusate Sodium (Sennosides-Docusate Sodium 1 Each Tab) 1 each PO DAILY [facility] Last Admin: 10/08/20 08:08 Dose: 1 each Documented by: Sodium Chloride (Sodium Chloride Tab 1 Gm Tab) 1 gm PO BID [facility] Last Admin: 10/08/20 08:11 Dose: 1 gm Documented by: Tramadol HCl (Tramadol 50 Mg Tab) 50 mg PO Q6H PRN PRN Reason: Moderate Pain Past medical history to include: Hyperlipidemia, osteoarthritis, hypothyroid, anxiety Social history: At [facility]. Alcohol occasionally. Does smoke occasionally. Takes his own decisions Family history: Reviewed, noncontributory to presentation Physical examination: VITAL SIGNS: 98, 73, 16, 166/64, 96% room air GENERAL: Laying in bed comfortable EYES: Pupils equal. Conjunctiva normal.. NECK: JVD not raised; masses not palpable. HEART: First and second heart sounds are normal; no edema. LUNGS: Respiratory rate normal; clear to auscultation. ABDOMEN: Soft, nontender, liver spleen not palpable, no masses palpable. PSYCH: Patient is able to answer questions simple. MUSCULAR skeletal: area of dressing over the left buttock abscess , surrounding cellulitis and tenderness NEUROLOGICAL: dysarthria. INVESTIGATIONS, reviewed in the clinical context: October 08: WBC 10.6 hemoglobin 9.9 sodium 128 potassium 3.6 creatinine 0.4 to October 07: Sodium 128 potassium 3.5 creatinine 0.51. Serum osmolality 264 Wound culture: MRSA October 06: WBC 16 hemoglobin 8.3 potassium 3.8 sodium 1:30 creatinine 0.6 Reviewed from [facility]: WBC 14 hemoglobin 11 platelets 372 sodium 129 potassium 3.6 BUN 27 creatinine 0.8 Computed tomography scan of the pelvis: Left hip DJD, left buttock abscess with fluid tracking down the thigh Assessment and plan: -Left buttock abscess that started as a pimple growing for a period of one week. drained in the ER by Dr. laura. Slow to respond Wound care per surgery. IV vancomycin. 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 Follow with ID and surgery. Discussed with patient.
--- NOTE | 2020-10-08 19:22 | PN ---
PROGRESS NOTE DATE OF SERVICE: 10/08/2020 REASON FOR FOLLOWUP: Left gluteal abscess, MRSA. INTERVAL HISTORY: The patient is currently afebrile. The patient is breathing comfortably. No chest pain or cough. No vomiting. No abdominal pain. No diarrhea or worsening pain to the left gluteal area. PHYSICAL EXAMINATION: On examination, blood pressure 119/68 with a pulse of 71, temperature 97.6. He is 95% on room air. GENERAL DESCRIPTION: General description is an elderly male lying in bed in no distress. RESPIRATORY SYSTEM: Unlabored breathing. Clear to auscultation anteriorly. HEART: S1, S2. Regular rate and rhythm. ABDOMEN: Soft. No tenderness. LABS: Hemoglobin is 9.8, white count 10.7, BUN of 13, creatinine 0.42. Vancomycin trough is slightly elevated. DIAGNOSTIC IMPRESSION AND PLAN: Patient with a left gluteal abscess and MRSA, status post drainage. Plan at this time is to continue vancomycin. He will need a PICC line for outpatient IV antibiotic therapy in view of extensive infection. Continue supportive care. MMODL / IJN: [id number] /
[2020-10-08] MEDS: ATORVASTATIN 10 MG TAB PO SCH (21:54)
[2020-10-09 07:54] VITALS: TEMP 97.9
[2020-10-09] MEDS ORDERED: VANCOMYCIN TROUGH DUE 1 EACH MISC MISCELLANE ONE (08:00)
[2020-10-09 08:42] LABS: African American GFR (CKD) >90 (>60 ml/min/1.73 sqM); Anion Gap 5 mmol/L; Blood Urea Nitrogen 9 mg/dL (9-20); Calcium 7.8 mg/dL (8.4-10.2); Carbon Dioxide 28 mmol/L (22-30); Chloride 97 mmol/L (98-107); Glucose 114 mg/dL (74-99); Non-African American GFR(CKD) >90 (>60 ml/min/1.73 sqM); Potassium 3.2 mmol/L (3.5-5.1); Sodium 130 mmol/L (137-145)
[2020-10-09] MEDS: CYANOCOBALAMIN 500 MCG TAB PO SCH (09:04)
[2020-10-09] MEDS: SENNOSIDES-DOCUSATE SODIUM 1 EACH TAB PO SCH (09:04)
[2020-10-09] MEDS: MIDODRINE 5 MG TAB PO SCH (09:04)
[2020-10-09] MEDS: ASPIRIN 81 MG PO SCH (09:04)
[2020-10-09] MEDS: CITALOPRAM HYDROBROMIDE 20 MG TAB PO SCH (09:05)
[2020-10-09] MEDS: FAMOTIDINE 20 MG TAB PO SCH (09:05)
[2020-10-09] MEDS: SODIUM CHLORIDE TAB 1 GM TAB PO SCH (09:05)
[2020-10-09] MEDS: hydrOXYzine pamoate 25 MG CAP PO SCH ×3 (09:05→18:08)
[2020-10-09] MEDS: NAPROXEN 250 MG TAB PO SCH ×2 (09:06→15:11)
[2020-10-09] MEDS: QUEtiapine 100 MG TAB PO SCH (09:06)
[2020-10-09] MEDS: PHENYTOIN SODIUM EXTENDED 100 MG CAP PO SCH (09:07)
[2020-10-09] MEDS: VANCOMYCIN 1,500 MG in SODIUM CHLORIDE 0.9% 250 ML IVPB SCH (09:11)
[2020-10-09] MEDS ORDERED: POTASSIUM CHLORIDE ER 20 MEQ TAB.ER PO STA (12:21)
--- NOTE | 2020-10-09 12:22 | P.CONS ---
History of Present Illness - Reason for Consult Consult date: 10/09/20 wound care - History of Present Illness This is a 69-year-old pleasant male being seen on 4 cells for a nonhealing ulceration to the left gluteus. She has history of developmental delay and seizure disorder. Patient has had an abscess to the past. He underwent a I&D of the gluteus abscess on 10/05/2020. He is currently on IV antibiotics. At this time the left gluteus has a incisional opening measuring approximately 0.2 x 0.6 x 1 cm. The ulceration is draining serous fluid. The wound shows some ecchymosis. It is tender to touch. Review Of Systems: Constitutional: No fever, no chills, no night sweats. No weight change. No weakness, fatigue or lethargy. No daytime sleepiness. Integumentary:reports wounds, no lesions. No rash or pruritus. No unusual bruising. No change in hair or nails. Physical exam: General Appearance: Alert, cooperative, no distress, appears stated age. Skin: See HPI all other Skin color, texture, tugor normal, no rashes or lesions. Neurologic: Alert oriented x3 Assessment: 1. Nonhealing ulceration to left gluteus with fat layer exposure Plan: 1. Apply absorptive silver rope moistened, ABDs and secured with paper tape. Change Thursday. Thank you for the consultation any questions please contact the wound care center DNP note has been reviewed and discussed with Dr. Dewitt and the impression and plan of care has been directed as dictated. Past Medical History Past Medical History: Seizure Disorder Additional Past Medical History / Comment(s): Mentally challenged. History of Any Multi-Drug Resistant Organisms: None Reported Additional Past Surgical History / Comment(s): Left arm broken; surgical repair. Shunt placed 1970. Past Anesthesia/Blood Transfusion Reactions: No Reported Reaction Additional Psychological History / Comment(s): pt. mentally challenged. Smoking Status: Former smoker Medications and Allergies Home Medications Medication Instructions Recorded Confirmed Type Amoxic-Pot Clav 875-125Mg 1 tab PO Q12HR 10/05/20 10/05/20 History [Augmentin 875-125] Aspirin EC [Ecotrin Low Dose] 81 mg PO DAILY 10/05/20 10/05/20 History Atorvastatin [Lipitor] 10 mg PO HS 10/05/20 10/05/20 History Calcium Carbonate/Vitamin D3 1 cap PO DAILY 10/05/20 10/05/20 History [Calcium 600 mg-D3 10 Mcg (400 Iu)] Citalopram Hydrobromide [CeleXA] 40 mg PO DAILY 10/05/20 10/05/20 History Cyanocobalamin (Vitamin B-12) 1,000 mcg PO DAILY 10/05/20 10/05/20 History [Vitamin B-12] Midodrine HCl [ProAmantine] 2.5 mg PO BID 10/05/20 10/05/20 History Naproxen 500 mg PO BID 10/05/20 10/05/20 History Phenytoin Sodium Extended 100 mg PO BID 10/05/20 10/05/20 History [Dilantin] QUEtiapine XR [SEROquel XR] 200 mg PO HS 10/05/20 10/05/20 History Sennosides/Docusate Sodium [Senna 1 cap PO DAILY 10/05/20 10/05/20 History Plus 8.6-50 mg Softgel] Sodium Chloride Tab 1 gm PO DAILY 10/05/20 10/05/20 History hydrOXYzine pamoate [Vistaril] 50 mg PO QID 10/05/20 10/05/20 History Allergies Allergy/AdvReac Type Severity Reaction Status Date / Time No Known Allergies Allergy Verified 10/05/20 18:18 Physical Exam Vitals: Vital Signs Temp Pulse Resp BP Pulse Ox 10/09/20 07:53 97.9 F 64 18 126/82 97 10/09/20 02:00 98.9 F 93 129/78 94 L 10/08/20 20:00 98.3 F 77 18 162/73 93 L 10/08/20 14:00 97.6 F 71 16 119/68 95 Intake and Output 10/08/20 10/09/20 10/09/20 22:59 06:59 14:59 Intake Total 250 Balance 250 Intake: Intake, IV Titration 250 Amount Vancomycin 1,500 mg In 250 Sodium Chloride 0.9% 250 ml @ 125 mls/hr IVPB Q12H [facility] Rx#:[id number] Other: Voiding Method Diaper Diaper Incontinent Incontinent # Voids 3 3 # Bowel Movements 2 1 Results CBC & Chem 7: 10/08/20 05:07 10/09/20 08:15 Labs: Abnormal Lab Results - Last 24 Hours (Table) 10/09/20 Range/Units 08:15 Sodium 130 L (137-145) mmol/L Potassium 3.2 L (3.5-5.1) mmol/L Chloride 97 L (98-107) mmol/L Creatinine 0.43 L (0.66-1.25) mg/dL Glucose 114 H (74-99) mg/dL Calcium 7.8 L (8.4-10.2) mg/dL Microbiology - Last 24 Hours (Table) 10/05/20 21:30 Gram Stain - Final Other - Other Wound Culture - Final Methicillin resist S. aureus 10/07/20 05:27 Blood Culture - Preliminary Blood No Growth after 48 hours Assessment and Plan (1) Non-healing ulcer of buttock with fat layer exposed Current Visit: Yes Status: Acute Code(s): L98.412 - NON-PRESSURE CHRONIC ULCER OF BUTTOCK WITH FAT LAYER EXPOSED SNOMED Code(s): 72219173 (2) Gluteal abscess Current Visit: Yes Status: Acute Code(s): L02.31 - CUTANEOUS ABSCESS OF BUTTOCK SNOMED Code(s): 62073497
[2020-10-09 15:13] VITALS: BP 137/72; PULSE 69; RESP 16
--- NOTE | 2020-10-09 16:34 | P.DS ---
Providers Date of admission: 10/05/20 20:32 Expected date of discharge: 10/09/20 Attending physician: Jaime Jovel Consults: 10/05/20 20:30 Consult Physician Routine Consulting Provider: Kimani Cantu Consult Reason/Comments: gluteal abscess Do you want consulting provider notified?: Yes Consult Physician Routine Consulting Provider: Raquel Pedro Consult Reason/Comments: Gluteal abscess Do you want consulting provider notified?: Yes Primary care physician: [facility] Course: Chief Complaint: Left buttock abscess History of presenting complaint: This is a pleasant 69-year-old patient who follows with visiting physicians Dr. Ring. Most of the history is obtained by the caregiver at the bedside. Patient is a resident of [facility]. About a week ago, patient was noted to have a pimple on the right buttock. It progressively enlarged. Became more painful. This questionable fever at home. Patient was taken down to [facility]. A computed tomography scan showed an area of abscess fluid tracking down the thigh. Patient had been on Augmentin. Dr. cantu from general surgery was consulted. In the ER he drained the abscess and significant amount of pus was obtained. At her baseline patient can't feed himself, ambulatory. Takes his own decisions. in place for a court-appointed guardian, is in the process. October 06: Reclining in bed. Comfortable. Pain well controlled. Oral intake fair. On IV Ancef. October 07: Reclining chair. Oral intake good. Pain well controlled. On IV vancomycin Wound care per ID/surgery. Wound cultures presumptive MRSA October 08: Laying in bed. Pain control. On IV vancomycin. Still significant cellulitis wound per ID. oral intake good October 09: Negative bed. Comfortable. Discussed with the patient. On IV vancomycin. Wound being better. Discussed with Dr. Pedro from ID. Patient okay to be discharged with IV antibiotics. Coordinated with trimming caser. Discussion and discharge planning more than 35 minutes Consultation: Dr. Pedro from CT Dr. cantu from general surgery Past medical history to include: Hyperlipidemia, osteoarthritis, hypothyroid, anxiety Social history: At [facility]. Alcohol occasionally. Does smoke occasionally. Takes his own decisions Family history: Reviewed, noncontributory to presentation Physical examination: VITAL SIGNS: 97.9, 69, 16, 137 with 72, 97% room air GENERAL: Laying in bed comfortable EYES: Pupils equal. Conjunctiva normal.. NECK: JVD not raised; masses not palpable. HEART: First and second heart sounds are normal; no edema. LUNGS: Respiratory rate normal; clear to auscultation. ABDOMEN: Soft, nontender, liver spleen not palpable, no masses palpable. PSYCH: Patient is able to answer questions simple. MUSCULAR skeletal: Left buttock wound and surrounding cellulitis improving NEUROLOGICAL: dysarthria. INVESTIGATIONS, reviewed in the clinical context: October 09: Potassium 3.2 creatinine 0.43 vancomycin level XVIII.1 October 08: WBC 10.6 hemoglobin 9.9 sodium 128 potassium 3.6 creatinine 0.4 to October 07: Sodium 128 potassium 3.5 creatinine 0.51. Serum osmolality 264 Wound culture: MRSA October 06: WBC 16 hemoglobin 8.3 potassium 3.8 sodium 1:30 creatinine 0.6 Reviewed from [facility]: WBC 14 hemoglobin 11 platelets 372 sodium 129 potassium 3.6 BUN 27 creatinine 0.8 Computed tomography scan of the pelvis: Left hip DJD, left buttock abscess with fluid tracking down the thigh Assessment and plan: -Left buttock abscess that started as a pimple growing for a period of one week. drained in the ER by Dr. cantu. Improving Wound care per surgery. IV vancomycin. Cultures- MRSA. Patient has a midline. Discharged home with IV vancomycin. 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 Pending a court-appointed POA -Hyperlipidemia Pravachol 40 mg daily -Hypothyroid Synthroid 88 g daily -Anxiety not otherwise specified Celexa 10 mg daily -Chronic hyponatremia Increased salt tablets 2 twice a day Disposition: [facility] Patient Condition at Discharge: Stable Plan - Discharge Summary Discharge Rx Participant: No New Discharge Prescriptions: New Famotidine [Pepcid] 20 mg PO BID #60 tab Acetaminophen Tab [Tylenol] 650 mg PO Q6HR PRN tab PRN Reason: Mild Pain Or Fever > 100.5 Continue Aspirin EC [Ecotrin Low Dose] 81 mg PO DAILY Phenytoin Sodium Extended [Dilantin] 100 mg PO BID hydrOXYzine pamoate [Vistaril] 50 mg PO QID Citalopram Hydrobromide [CeleXA] 40 mg PO DAILY Calcium Carbonate/Vitamin D3 [Calcium 600 mg-D3 10 Mcg (400 Iu)] 1 cap PO DAILY Cyanocobalamin (Vitamin B-12) [Vitamin B-12] 1,000 mcg PO DAILY Sennosides/Docusate Sodium [Senna Plus 8.6-50 mg Softgel] 1 cap PO DAILY QUEtiapine XR [SEROquel XR] 200 mg PO HS Naproxen 500 mg PO BID Midodrine HCl [ProAmantine] 2.5 mg PO BID Atorvastatin [Lipitor] 10 mg PO HS Changed Sodium Chloride Tab 1 gm PO BID #60 tab Discontinued Amoxic-Pot Clav 875-125Mg [Augmentin 875-125] 1 tab PO Q12HR Discharge Medication List Aspirin EC [Ecotrin Low Dose] 81 mg PO DAILY 10/05/20 [History] Atorvastatin [Lipitor] 10 mg PO HS 10/05/20 [History] Calcium Carbonate/Vitamin D3 [Calcium 600 mg-D3 10 Mcg (400 Iu)] 1 cap PO DAILY 10/05/20 [History] Citalopram Hydrobromide [CeleXA] 40 mg PO DAILY 10/05/20 [History] Cyanocobalamin (Vitamin B-12) [Vitamin B-12] 1,000 mcg PO DAILY 10/05/20 [History] Midodrine HCl [ProAmantine] 2.5 mg PO BID 10/05/20 [History] Naproxen 500 mg PO BID 10/05/20 [History] Phenytoin Sodium Extended [Dilantin] 100 mg PO BID 10/05/20 [History] QUEtiapine XR [SEROquel XR] 200 mg PO HS 10/05/20 [History] Sennosides/Docusate Sodium [Senna Plus 8.6-50 mg Softgel] 1 cap PO DAILY 10/05/20 [History] hydrOXYzine pamoate [Vistaril] 50 mg PO QID 10/05/20 [History] Acetaminophen Tab [Tylenol] 650 mg PO Q6HR PRN tab 10/09/20 [Rx] Famotidine [Pepcid] 20 mg PO BID #60 tab 10/09/20 [Rx] Sodium Chloride Tab 1 gm PO BID #60 tab 10/09/20 [Rx] Follow up Appointment(s)/Referral(s): [facility], [NON-STAFF] - ([facility] will call to arrange the time for your first visit. Your first visit will by on 10/10/20. ) [facility],Infusion [NON-STAFF] - ([facility] will deliver supplies today - 10/09/20. They will call before delivery. ) Solomon Ring MD [Primary Care Provider] - 1-2 days (please call office when patient at home) Raquel Pedro MD [STAFF PHYSICIAN] - 10/23/20 1:45 pm Patient Instructions/Handouts: Abscess Incision and Drainage (DC) Activity/Diet/Wound Care/Special Instructions: bmp /cbc - 5 days apply aquacel rope moistened to gluteal abscess, abd pad, secure with paper tape. change thursday, , thursday.
--- NOTE | 2020-10-09 19:38 | PN ---
PROGRESS NOTE DATE OF SERVICE: 10/09/2020 REASON FOR FOLLOWUP: Left gluteal MRSA abscess and cellulitis. INTERVAL HISTORY: The patient is currently afebrile. The patient is breathing comfortably. No vomiting. No diarrhea or any changes reported by nursing staff. The patient is unable to provide any history. PHYSICAL EXAMINATION: Blood pressure 137/72 with a pulse of 69. Temperature is 97.9. He is 97% on room air. General description is an elderly male lying in bed in no distress. Respiratory system: Unlabored breathing, clear to auscultation anteriorly. Heart S1, S2. Regular rate and rhythm. Abdomen soft, no tenderness. Extremities: No edema of the feet. LABS: Hemoglobin is 9.1, white count 10.2, BUN of 9, creatinine 0.43. DIAGNOSTIC IMPRESSION AND PLAN: Patient with MRSA left gluteal abscess status post drainage, finishing therapy with vancomycin pharmacy to dose for 2 weeks and close outpatient followup. MMODL / IJN: [id number] /
== END 2020-10-09 18:52 | disposition home health service (06) | DRG 603 ==
LOC: EC 18:05 → 4SSUR 20:32
PROVIDERS: ADMIT Hospitalist; ATTEND Hospitalist
PROC: 0J990ZX Drainage of Buttock Subcutaneous Tissue and Fascia, Open Approach, Diagnostic (ICD-10-PCS; principal; 2020-10-05)
PROC: 05HB33Z Insertion of Infusion Device into Right Basilic Vein, Percutaneous Approach (ICD-10-PCS; 2020-10-08 14:05)
DX: L02.31 Cutaneous abscess of buttock (principal); E87.1 Hypo-osmolality and hyponatremia; G40.909 Epilepsy, unspecified, not intractable, without status epilepticus; L98.412 Non-pressure chronic ulcer of buttock with fat layer exposed; B95.62 Methicillin resistant Staphylococcus aureus infection as the cause of diseases classified elsewhere; L03.317 Cellulitis of buttock; E78.5 Hyperlipidemia, unspecified; E03.9 Hypothyroidism, unspecified; F41.9 Anxiety disorder, unspecified; G31.84 Mild cognitive impairment of uncertain or unknown etiology; F17.200 Nicotine dependence, unspecified, uncomplicated; M16.12 Unilateral primary osteoarthritis, left hip; F79 Unspecified intellectual disabilities; F89 Unspecified disorder of psychological development; Z79.82 Long term (current) use of aspirin; Z79.1 Long term (current) use of non-steroidal anti-inflammatories (NSAID); Z79.899 Other long term (current) drug therapy; Z87.81 Personal history of (healed) traumatic fracture
CPT/HCPCS: 36410; 76937; 80048; 80053; 80202; 83930; 85025; 87040; 87070; 87075; 87077; 87186; 87205; 99284

== ENCOUNTER 2020-10-15 18:04 | Inpatient (IN) | payer MEDICARE, OTHER ==
--- NOTE | 2020-10-15 21:46 | ED ---
General Adult HPI - General Chief complaint: Recheck/Abnormal Lab/Rx Stated complaint: Abscess Source: patient, RN notes reviewed, old records reviewed, Caregiver Mode of arrival: ambulatory Limitations: no limitations - History of Present Illness Initial comments: 69-year-old white male, with cognitive impairment, presents to the emergency room with his caregiver for increased swelling to his left buttock. Patient had an I&D here 10 days ago in the emergency room and was admitted. He was discharged home on 10/10/20 and placed on IV vancomycin 1.5 g. Caregiver states that the wound is still open but not draining and there is increased redness and pain. She states the site is hard and painful to touch. She denies any nausea or vomiting or fevers. She states that he has had adequate intake and has had some constipation but denies any hematochezia or hematemesis. -: days(s) (10) Location: buttocks, left Consistency: constant Treatments Prior to Arrival: other (Vancomycin IV) - Related Data Home Medications Medication Instructions Recorded Confirmed Aspirin EC [Ecotrin Low Dose] 81 mg PO DAILY@0700 10/05/20 10/15/20 Atorvastatin [Lipitor] 10 mg PO HS@209910/05/20 10/15/20 Calcium Carbonate/Vitamin D3 1 cap PO DAILY@00 10/05/20 10/15/20 [Calcium 600 mg-D3 10 Mcg (400 Iu)] Citalopram Hydrobromide [CeleXA] 40 mg PO DAILY@0700 10/05/20 10/15/20 Cyanocobalamin (Vitamin B-12) 1,000 mcg PO DAILY@69910/05/20 10/15/20 [Vitamin B-12] Midodrine HCl [ProAmantine] 2.5 mg PO BID@0700,209910/05/20 10/15/20 Naproxen 500 mg PO BID@0700,209910/05/20 10/15/20 Phenytoin Sodium Extended 100 mg PO BID@0700,209910/05/20 10/15/20 [Dilantin] QUEtiapine XR [SEROquel XR] 200 mg PO HS@209910/05/20 10/15/20 Sennosides/Docusate Sodium [Senna 2 cap PO HS@209910/05/20 10/15/20 Plus 8.6-50 mg Softgel] hydrOXYzine pamoate [Vistaril] 50 mg PO QID 10/05/20 10/15/20 Famotidine [Pepcid] 20 mg PO BID@0700,1700 10/15/20 10/15/20 Multivitamins, Thera [Multivitamin 1 tab PO DAILY@0700 10/15/20 10/15/20 (formulary)] QUEtiapine [SEROquel] 200 mg PO HS@2100 10/15/20 10/15/20 Sodium Chloride Tab 1 gm PO BID@0700,1700 10/15/20 10/15/20 Vancomycin 1.5gm/250ml/0.9% Nacl 1 dose IV Q12H 10/15/20 10/15/20 clonazePAM 0.5 mg PO TID@0700,1500,2100 10/15/20 10/15/20 Allergies Allergy/AdvReac Type Severity Reaction Status Date / Time No Known Allergies Allergy Verified 10/15/20 22:42 Review of Systems ROS Statement: Those systems with pertinent positive or pertinent negative responses have been documented in the HPI. ROS Other: All systems not noted in ROS Statement are negative. Past Medical History Past Medical History: Seizure Disorder Additional Past Medical History / Comment(s): Mentally challenged. History of Any Multi-Drug Resistant Organisms: MRSA Date of last positivie culture/infection: 10/05/20 MDRO Source:: MRSA BUTTOCK Additional Past Surgical History / Comment(s): Left arm broken; surgical repair. Shunt placed 1970. Past Anesthesia/Blood Transfusion Reactions: No Reported Reaction Past Psychological History: No Psychological Hx Reported Smoking Status: Former smoker General Exam Limitations: no limitations, altered mental status (Cognitive impairment) General appearance: alert, in no apparent distress Head exam: Present: atraumatic, normocephalic, normal inspection Eye exam: Present: normal appearance ENT exam: Present: mucous membranes moist Neck exam: Present: normal inspection. Absent: tenderness, meningismus, lymphadenopathy Respiratory exam: Present: normal lung sounds bilaterally. Absent: respiratory distress, wheezes, rales, rhonchi, stridor, chest wall tenderness, accessory muscle use Cardiovascular Exam: Present: regular rate, normal rhythm, normal heart sounds. Absent: systolic murmur, diastolic murmur, rubs, gallop, clicks GI/Abdominal exam: Present: soft, normal bowel sounds. Absent: distended, tenderness, guarding, rebound, rigid Back exam: Absent: tenderness, CVA tenderness (R), CVA tenderness (L), muscle spasm, paraspinal tenderness, vertebral tenderness Neurological exam: Present: alert Psychiatric exam: Present: normal affect, normal mood Skin exam: Present: warm, dry, intact, normal color, erythema (Left buttock approx 6cm x 5cm induration). Absent: rash, cyanosis, diaphoretic Course Vital Signs 10/15/20 10/15/20 19:04 20:57 Temperature 98.2 F 97.7 F Pulse Rate 74 65 Respiratory 16 18 Rate Blood Pressure 146/59 151/71 O2 Sat by Pulse 98 99 Oximetry Medical Decision Making - Medical Decision Making There is a approximately 6 cm x 5 cm area of induration and errythema to the left buttock that is tender to touch and erythematous. Patient was discharged on October 10 with IV vancomycin and the caregiver states the abscess is getting worse. WBC count was 12.3 weeks elevated from October 08 of 10.6 discharge. Patient will be admitted with infectious disease and surgery consults. Case was discussed with Dr. Trore. - Lab Data Result diagrams: 10/15/20 22:48 10/15/20 22:48 Lab Results 10/15/20 10/15/20 Range/Units 22:48 22:48 WBC 12.3 H (3.8-10.6) k/uL RBC 3.79 L (4.30-5.90) m/uL Hgb 11.2 L (13.0-17.5) gm/dL Hct 33.6 L (39.0-53.0) % MCV 88.6 (80.0-100.0) fL MCH 29.4 (25.0-35.0) pg MCHC 33.2 (31.0-37.0) g/dL RDW 14.6 (11.5-15.5) % Plt Count 774 H (150-450) k/uL MPV 7.1 Neutrophils % 79 % Lymphocytes % 9 % Monocytes % 6 % Eosinophils % 3 % Basophils % 1 % Neutrophils # 9.6 H (1.3-7.7) k/uL Lymphocytes # 1.1 (1.0-4.8) k/uL Monocytes # 0.7 (0-1.0) k/uL Eosinophils # 0.4 (0-0.7) k/uL Basophils # 0.1 (0-0.2) k/uL Sodium 132 L (137-145) mmol/L Potassium 4.0 (3.5-5.1) mmol/L Chloride 100 (98-107) mmol/L Carbon Dioxide 26 (22-30) mmol/L Anion Gap 6 mmol/L BUN 9 (9-20) mg/dL Creatinine 0.73 (0.66-1.25) mg/dL Est GFR (CKD-EPI)AfAm >90 (>60 ml/min/1.73 sqM) Est GFR (CKD-EPI)NonAf >90 (>60 ml/min/1.73 sqM) Glucose 111 H (74-99) mg/dL Calcium 8.7 (8.4-10.2) mg/dL Total Bilirubin 0.2 (0.2-1.3) mg/dL AST 36 (17-59) U/L ALT 19 (4-49) U/L Alkaline Phosphatase 196 H (38-126) U/L Total Protein 6.4 (6.3-8.2) g/dL Albumin 3.5 (3.5-5.0) g/dL Disposition Clinical Impression: Abscess, gluteal, left Disposition: ADMITTED IP TO THIS HOSP Condition: Fair Referrals: Solomon Ring MD [Primary Care Provider] - 1-2 days Decision Date: 10/15/20 Decision Time: 23:32
[2020-10-15] MEDS ORDERED: MORPHINE SULFATE 4 MG/ML SYRINGE IVP STA (22:42)
[2020-10-15 23:01] LABS: Basophils # (A) 0.1 k/uL (0-0.2); Basophils % (A) 1 %; Eosinophils # (A) 0.4 k/uL (0-0.7); Eosinophils % (A) 3 %; HCT 33.6 % (39.0-53.0); HGB 11.2 gm/dL (13.0-17.5); Lymphocytes # (A) 1.1 k/uL (1.0-4.8); Lymphocytes % (A) 9 %; MCH 29.4 pg (25.0-35.0); MCHC 33.2 g/dL (31.0-37.0); MCV 88.6 fL (80.0-100.0); Mean Platelet Volume 7.1; Monocytes # (A) 0.7 k/uL (0-1.0); Monocytes % (A) 6 %; Neutrophils # (A) 9.6 k/uL (1.3-7.7); Neutrophils % (A) 79 %; Platelet Count 774 k/uL (150-450); RBC 3.79 m/uL (4.30-5.90); RDW 14.6 % (11.5-15.5); WBC 12.3 k/uL (3.8-10.6)
[2020-10-15 23:12] LABS: ALT 19 U/L (4-49); AST 36 U/L (17-59); African American GFR (CKD) >90 (>60 ml/min/1.73 sqM); Albumin 3.5 g/dL (3.5-5.0); Alkaline Phosphatase 196 U/L (38-126); Anion Gap 6 mmol/L; Blood Urea Nitrogen 9 mg/dL (9-20); Calcium 8.7 mg/dL (8.4-10.2); Carbon Dioxide 26 mmol/L (22-30); Chloride 100 mmol/L (98-107); Glucose 111 mg/dL (74-99); Non-African American GFR(CKD) >90 (>60 ml/min/1.73 sqM); Sodium 132 mmol/L (137-145); Total Bilirubin 0.2 mg/dL (0.2-1.3); Total Protein 6.4 g/dL (6.3-8.2)
[2020-10-15] MEDS ORDERED: NALOXONE 0.4 MG/ML 1 ML VIAL IV PRN (23:20)
[2020-10-15] MEDS ORDERED: ACETAMINOPHEN TAB 325 MG TAB PO PRN (23:20)
[2020-10-15] MEDS ORDERED: IBUPROFEN 400 MG TAB PO PRN (23:20)
[2020-10-15] MEDS ORDERED: VANCOMYCIN IV SCH (23:30)
[2020-10-15] MEDS ORDERED: SODIUM CHLORIDE IV SCH (23:30)
[2020-10-16] MEDS: QUEtiapine 100 MG TAB PO SCH ×3 (01:15→23:00)
[2020-10-16] MEDS: SODIUM CHLORIDE 0.9% 1,000 ML IV SCH ×2 (01:15→23:00)
[2020-10-16] MEDS ORDERED: VANCOMYCIN IV PER PHARMACY 1 EACH MISC MISCELLANE PRN (01:59)
[2020-10-16] MEDS ORDERED: VANCOMYCIN 1,000 MG in SODIUM CHLORIDE 0.9% 250 ML IVPB ONE (02:15)
[2020-10-16] MEDS: MORPHINE SULFATE 4 MG/ML SYRINGE IV PRN (03:09)
--- NOTE | 2020-10-16 07:02 | P.HPIM ---
History of Present Illness H&P Date: 10/16/20 Chief Complaint: worsening right buttock abscess 69 year old male with cognitive impairment and history of seizure patient was discharged from our facility about week ago , he had I&D done 10 days ago for right buttock abscess was positive for MRSA, and treated with vanco. career development coordinator brought patient back today due to recurrent and worsening induration over the same area without drainage, no report of fever or chills. but the area is becoming more indurated and painful to the touch patient is mentally challenged and unable to provide any history . career development coordinator not present at time of my evaluation , history obtained from talking with ED staff. workup in the ED showed elevated WBC, chronic anemia (improved compared to before) , mild hyponatremia (chronic ) Review of Systems ROS unobtainable: due to mental status Past Medical History Past Medical History: Unable to Obtain, Seizure Disorder Additional Past Medical History / Comment(s): Mentally challenged. History of Any Multi-Drug Resistant Organisms: MRSA Date of last positivie culture/infection: 10/05/20 MDRO Source:: MRSA BUTTOCK Additional Past Surgical History / Comment(s): Left arm broken; surgical repair. Shunt placed 1970. Past Anesthesia/Blood Transfusion Reactions: No Reported Reaction Past Psychological History: No Psychological Hx Reported Smoking Status: Former smoker - Past Family History family Family Medical History: Unable to Obtain Medications and Allergies Home Medications Medication Instructions Recorded Confirmed Type Aspirin EC [Ecotrin Low Dose] 81 mg PO DAILY@0700 10/05/20 10/15/20 History Atorvastatin [Lipitor] 10 mg PO HS@209910/05/20 10/15/20 History Calcium Carbonate/Vitamin D3 1 cap PO DAILY@69910/05/20 10/15/20 History [Calcium 600 mg-D3 10 Mcg (400 Iu)] Citalopram Hydrobromide [CeleXA] 40 mg PO DAILY@69910/05/20 10/15/20 History Cyanocobalamin (Vitamin B-12) 1,000 mcg PO DAILY@69910/05/20 10/15/20 History [Vitamin B-12] Midodrine HCl [ProAmantine] 2.5 mg PO BID@07,209910/05/20 10/15/20 History Naproxen 500 mg PO BID@0700,209910/05/20 10/15/20 History Phenytoin Sodium Extended 100 mg PO BID@0700,2100 10/05/20 10/15/20 History [Dilantin] QUEtiapine XR [SEROquel XR] 200 mg PO HS@209910/05/20 10/15/20 History Sennosides/Docusate Sodium [Senna 2 cap PO HS@209910/05/20 10/15/20 History Plus 8.6-50 mg Softgel] hydrOXYzine pamoate [Vistaril] 50 mg PO QID 10/05/20 10/15/20 History Famotidine [Pepcid] 20 mg PO BID@0700,1700 10/15/20 10/15/20 History Multivitamins, Thera [Multivitamin 1 tab PO DAILY@0700 10/15/20 10/15/20 History (formulary)] QUEtiapine [SEROquel] 200 mg PO HS@209910/15/20 10/15/20 History Sodium Chloride Tab 1 gm PO BID@0700,1700 10/15/20 10/15/20 History Vancomycin 1.5gm/250ml/0.9% Nacl 1 dose IV Q12H 10/15/20 10/15/20 History clonazePAM 0.5 mg PO TID@0700,1500,209910/15/20 10/15/20 History Allergies Allergy/AdvReac Type Severity Reaction Status Date / Time No Known Allergies Allergy Verified 10/15/20 22:42 Physical Exam Vitals: Vital Signs Temp Pulse Resp BP Pulse Ox 10/16/20 05:10 18 10/16/20 04:00 16 10/16/20 03:08 65 16 137/87 97 10/16/20 00:47 99.1 F 65 16 153/54 93 L 10/15/20 20:57 97.7 F 65 18 151/71 99 10/15/20 19:04 98.2 F 74 16 146/59 98 Intake and Output 10/15/20 10/15/20 10/16/20 14:59 22:59 06:59 Other: Weight 54.431 kg Constitutional: No acute distress, cooperative, can not communicate effectively Eyes: Anicteric sclerae, moist conjunctiva, Pupils equal round reactive to light ENMT: NC/AT Oropharynx clear, no erythema, or exudates Neck: Supple, no masses, or JVD No carotid bruits No thyromegaly Lungs: Clear to auscultation Clear to percussion Normal respiratory effort, no accessory muscle use Cardiovascular: Heart regular in rate and rhythm, No murmurs, gallops, or rubs No peripheral edema Abdominal: Soft Nontender, no guarding, rebound or rigidity Abdomen moving with respiration Normoactive bowel sounds No hepatomegaly, No splenomegaly No palpable mass No abdominal wall hernia noted Skin: area of 5X5 cm over the right buttock , with induration erythema , tender to the touch , no drainage. fluctuating Extremities: No digital cyanosis No clubbing Pedal pulses intact and symmetrical Radial pulses intact and symmetrical No calf tenderness Psychiatric: Alert Neuro Muscles Strength 4/5 in all 4 extremities could not assess the rest of neuro exam due to patient mental ability Lymphatics: no palpable cervical or supraclavicular , or inguinal lymph nodes Results CBC & Chem 7: 10/15/20 22:48 10/15/20 22:48 Labs: Abnormal Lab Results - Last 24 Hours (Table) 10/15/20 10/15/20 Range/Units 22:48 22:48 WBC 12.3 H (3.8-10.6) k/uL RBC 3.79 L (4.30-5.90) m/uL Hgb 11.2 L (13.0-17.5) gm/dL Hct 33.6 L (39.0-53.0) % Plt Count 774 H (150-450) k/uL Neutrophils # 9.6 H (1.3-7.7) k/uL Sodium 132 L (137-145) mmol/L Glucose 111 H (74-99) mg/dL Alkaline Phosphatase 196 H (38-126) U/L Assessment and Plan Assessment: recurrent induration over right buttock possibly recurrent abscess formation resume vanco IV (recent history of MRSA) surgery consult pain control IVF hydration with saline pain control developmental delays supportive care chronic hyponatremia chronic anemia IVF hydration with normal saline , monitor electrolytes monitor Hgb full code DVT prophylaxis: heparin sc tid Discussed with: Patient, ER Anticipated length of stay < than [address]: home A total of 65minutes was spent on the care of this complex patient more than 50% of the time was spent in counseling and care coordination.
[2020-10-16] MEDS ORDERED: hydrOXYzine pamoate 25 MG CAP PO SCH (09:00)
[2020-10-16] MEDS: ASPIRIN 81 MG PO SCH (09:32)
[2020-10-16] MEDS: PHENYTOIN SODIUM EXTENDED 100 MG CAP PO SCH ×2 (09:32→23:01)
[2020-10-16] MEDS: HEPARIN SODIUM,PORCINE/PF 5,000 UNIT/0.5 ML SYRINGE SQ SCH ×3 (09:32→22:59)
[2020-10-16] MEDS: clonazePAM 0.5 MG TAB PO SCH ×3 (09:32→22:58)
[2020-10-16] MEDS: CALCIUM CARB-VIT D 500 MG-5 MCG TAB PO SCH (09:32)
[2020-10-16] MEDS: NAPROXEN 250 MG TAB PO SCH ×2 (09:33→22:57)
[2020-10-16] MEDS: FAMOTIDINE 20 MG TAB PO SCH ×2 (09:33→23:00)
[2020-10-16] MEDS: hydrOXYzine pamoate 25 MG CAP PO SCH ×4 (09:33→23:01)
[2020-10-16] MEDS: MIDODRINE 5 MG TAB PO SCH ×2 (09:33→23:00)
[2020-10-16] MEDS: CITALOPRAM HYDROBROMIDE 20 MG TAB PO SCH (09:33)
[2020-10-16] MEDS ORDERED: VANCOMYCIN 1,000 MG in SODIUM CHLORIDE 0.9% 250 ML IVPB SCH (11:00)
[2020-10-16] MEDS ORDERED: QUEtiapine 200 MG TAB PO SCH (21:00)
[2020-10-16] MEDS: VANCOMYCIN 1,000 MG in SODIUM CHLORIDE 0.9% 250 ML IVPB SCH (22:55)
[2020-10-16] MEDS: ATORVASTATIN 10 MG TAB PO SCH (22:58)
[2020-10-16] MEDS: SENNOSIDES-DOCUSATE SODIUM 1 EACH TAB PO SCH (22:58)
[2020-10-16] MEDS: SODIUM CHLORIDE TAB 1 GM TAB PO SCH (22:59)
--- NOTE | 2020-10-17 06:32 | P.CONS ---
History of Present Illness - Reason for Consult Consult date: 10/16/20 left gluteal abscess Requesting physician: Orville Mcgovern - Chief Complaint left gluteal swelling and redness x few days - History of Present Illness History of present illness : Patient is a 69-year-old male who was recently admitted at this facility with a left gluteal abscess status post drainage culture positive for MRSA patient daughter declined and was s ubsequently discharged on IV vancomycin for 2 weeks patient is now brought back to the hospital with worsening induration redness of his left gluteal wound without any drainage and concern for worsening infection patient on presentation to the hospital was afebrile patient did have white count of 12.3 creatinine was 0.73 patient has been admitted to the hospital he was started on vancomycin infectious disease was consulted for further management of antibiotic therapy most information has been obtained from review the chart talking nursing staff as the patient cefazolin provide reliable history because of underlying mental status Review of system: Positive point has been mentioned in HPI complete review could not be obtained because of underlying mental status Past medical history : Reviewed, documented below Past surgical history : Reviewed, documented below Social history: Reviewed, documented below Medications: Reviewed, as documented below GENERAL DESCRIPTION: Elderly male lying in bed, no distress. No tachypnea or accessory muscle of respiration use. HEENT: Shows Pallor , no scleral icterus. Oral mucous membrane is dry. NECK: Trachea central, no thyromegaly. LUNGS: Unlabored breathing. Clear to auscultation anteriorly. No wheeze or crackle. HEART: S1, S2, regular rate and rhythm. ABDOMEN: Soft, no tenderness , guarding or rigidity EXTREMITIES: No edema of feet. SKIN: No rash, no masses palpable. Left gluteal area did have area of swelling induration and redness and seem to be tender to touch NEUROLOGICAL: The patient is awake, alert, orientation could not determine because of mental status LABS AND RADIOLOGY: Reviewed results see below Assessment : Patient with left gluteal abscess and cellulitis secondary to MRSA which has not completely resolved after his initial I&D and IV vancomycin therapy with concern for possible persistent abscess Plan: 1-Marked the area of redness and induration 2-await surgical evaluation and further drainage of the area and deep culture 3-vancomycin pharmacy to dose her with a target trough of 15 while watching her kidney function and Vanco trough closely. We will follow on clinical condition and cultures to further adjust medication if needed Thank you for this consultation we will follow the patient along with you Past Medical History Past Medical History: Unable to Obtain, Seizure Disorder Additional Past Medical History / Comment(s): Mentally challenged. History of Any Multi-Drug Resistant Organisms: MRSA Year Discovered:: 10/05/20 MDRO Source:: MRSA BUTTOCK Additional Past Surgical History / Comment(s): Left arm broken; surgical repair. Shunt placed 1970. Past Anesthesia/Blood Transfusion Reactions: No Reported Reaction Past Psychological History: No Psychological Hx Reported Smoking Status: Former smoker - Past Family History family Family Medical History: Unable to Obtain Medications and Allergies Home Medications Medication Instructions Recorded Confirmed Type Aspirin EC [Ecotrin Low Dose] 81 mg PO DAILY@0700 10/05/20 10/15/20 History Atorvastatin [Lipitor] 10 mg PO HS@209910/05/20 10/15/20 History Calcium Carbonate/Vitamin D3 1 cap PO DAILY@0700 10/05/20 10/15/20 History [Calcium 600 mg-D3 10 Mcg (400 Iu)] Citalopram Hydrobromide [CeleXA] 40 mg PO DAILY@0710/05/20 10/15/20 History Cyanocobalamin (Vitamin B-12) 1,000 mcg PO DAILY@0700 10/05/20 10/15/20 History [Vitamin B-12] Midodrine HCl [ProAmantine] 2.5 mg PO BID@0700,209910/05/20 10/15/20 History Naproxen 500 mg PO BID@0700,209910/05/20 10/15/20 History Phenytoin Sodium Extended 100 mg PO BID@0700,209910/05/20 10/15/20 History [Dilantin] QUEtiapine XR [SEROquel XR] 200 mg PO HS@209910/05/20 10/15/20 History Sennosides/Docusate Sodium [Senna 2 cap PO HS@209910/05/20 10/15/20 History Plus 8.6-50 mg Softgel] hydrOXYzine pamoate [Vistaril] 50 mg PO QID 10/05/20 10/15/20 History Famotidine [Pepcid] 20 mg PO BID@0700,1700 10/15/20 10/15/20 History Multivitamins, Thera [Multivitamin 1 tab PO DAILY@0700 10/15/20 10/15/20 History (formulary)] QUEtiapine [SEROquel] 200 mg PO HS@2100 10/15/20 10/15/20 History Sodium Chloride Tab 1 gm PO BID@0700,1700 10/15/20 10/15/20 History Vancomycin 1.5gm/250ml/0.9% Nacl 1 dose IV Q12H 10/15/20 10/15/20 History clonazePAM 0.5 mg PO TID@0700,1500,2100 10/15/20 10/15/20 History Allergies Allergy/AdvReac Type Severity Reaction Status Date / Time No Known Allergies Allergy Verified 10/15/20 22:42 Physical Exam Vitals: Vital Signs Temp Pulse Pulse Resp BP BP Pulse Ox 10/16/20 08:00 98.1 F 67 17 138/72 98 10/16/20 05:10 18 10/16/20 04:00 16 10/16/20 03:08 65 16 137/87 97 10/16/20 00:47 99.1 F 65 16 153/54 93 L 10/15/20 20:57 97.7 F 65 18 151/71 99 10/15/20 19:04 98.2 F 74 16 146/59 98 Intake and Output 10/15/20 10/16/20 10/16/20 22:59 06:59 14:59 Other: Weight 54.431 kg Results CBC & Chem 7: 10/15/20 22:48 10/15/20 22:48 Labs: Abnormal Lab Results - Last 24 Hours (Table) 10/15/20 10/15/20 Range/Units 22:48 22:48 WBC 12.3 H (3.8-10.6) k/uL RBC 3.79 L (4.30-5.90) m/uL Hgb 11.2 L (13.0-17.5) gm/dL Hct 33.6 L (39.0-53.0) % Plt Count 774 H (150-450) k/uL Neutrophils # 9.6 H (1.3-7.7) k/uL Sodium 132 L (137-145) mmol/L Glucose 111 H (74-99) mg/dL Alkaline Phosphatase 196 H (38-126) U/L
[2020-10-17] MEDS: HEPARIN SODIUM,PORCINE/PF 5,000 UNIT/0.5 ML SYRINGE SQ SCH ×3 (10:16→20:26)
[2020-10-17] MEDS: SODIUM CHLORIDE TAB 1 GM TAB PO SCH ×2 (10:17→16:39)
[2020-10-17] MEDS: NAPROXEN 250 MG TAB PO SCH ×2 (10:17→20:25)
[2020-10-17] MEDS: PHENYTOIN SODIUM EXTENDED 100 MG CAP PO SCH ×2 (10:17→20:26)
[2020-10-17] MEDS: QUEtiapine 100 MG TAB PO SCH ×2 (10:19→20:26)
[2020-10-17] MEDS: CALCIUM CARB-VIT D 500 MG-5 MCG TAB PO SCH (10:20)
[2020-10-17] MEDS: hydrOXYzine pamoate 25 MG CAP PO SCH ×4 (10:20→20:25)
[2020-10-17] MEDS: MIDODRINE 5 MG TAB PO SCH ×2 (10:20→20:26)
[2020-10-17] MEDS: FAMOTIDINE 20 MG TAB PO SCH ×2 (10:22→20:26)
[2020-10-17] MEDS: ASPIRIN 81 MG PO SCH (10:22)
[2020-10-17] MEDS: clonazePAM 0.5 MG TAB PO SCH ×3 (10:22→20:25)
[2020-10-17] MEDS: CITALOPRAM HYDROBROMIDE 20 MG TAB PO SCH (10:22)
[2020-10-17] MEDS: VANCOMYCIN 1,000 MG in SODIUM CHLORIDE 0.9% 250 ML IVPB SCH ×2 (11:35→20:24)
[2020-10-17] MEDS ORDERED: VANCOMYCIN TROUGH DUE 1 EACH MISC MISCELLANE ONE (14:00)
--- NOTE | 2020-10-17 14:20 | P.GSCN ---
History of Present Illness Consult date: 10/17/20 History of present illness: CHIEF COMPLAINT: Left gluteal abscess HISTORY OF PRESENT ILLNESS: This is a 69-year-old male who is mentally delayed. He presents to the hospital with a left gluteal abscess. He was recently hospitalized for his left gluteal abscess. He had an I&D completed on 10/05/[address] laura. Cultures were positive for MRSA and patient was discharged on IV antibiotics for 2 weeks. He is brought back into the hospital due to worsening induration of the left gluteal abscess and pain. Patient is also followed by infectious disease. His white count was elevated at 12.3. He has had no drainage from the indurated area. He is afebrile. Surgical service consulted for left gluteal abscess. PAST MEDICAL HISTORY: See list. PAST SURGICAL HISTORY: See list. MEDICATIONS: See list. ALLERGIES: See list. SOCIAL HISTORY: No illicit drug use. REVIEW OF SYSTEMS: CONSTITUTIONAL: Denies fever or chills. HEENT: Denies blurred vision, vision changes, or eye pain. Denies hemoptysis CARDIOVASCULAR: Denies chest pain or pressure. RESPIRATORY: No shortness of breath. GASTROINTESTINAL: See HPI for pertinent findings HEMATOLOGIC: Denies bleeding disorders. GENITOURINARY: Denies any blood in urine or increased urinary frequency. SKIN: Denies pruitis. Denies rash. PHYSICAL EXAM: VITAL SIGNS: Reviewed GENERAL: Well-developed in no acute distress. HEENT: No sclera icterus. Extraocular movements grossly intact. Moist buccal m ucosa. Head is atraumatic, normocephalic. No nasal drainage. ABDOMEN: Soft. Nondistended. Nontender NEUROLOGIC: Awake and alert Skin: 5 cm circular area of induration noted on the left glut. prior incision is healed. No evidence of any drainage. No fluctuance LABORATORY DATA: WBC 12.3 hemoglobin 11.2 platelets 774 sodium 132 IMAGING: ASSESSMENT: 1. Left gluteal 5 cm area of induration. No fluctuance noted. PLAN: -No surgical intervention planned -Continue antibiotics per ID Thank you for this consultation Physician Surgical Manager note has been reviewed by physician. Signing provider agrees with the documented findings, assessment, and plan of care. Past Medical History Past Medical History: Unable to Obtain, Seizure Disorder Additional Past Medical History / Comment(s): Mentally challenged. History of Any Multi-Drug Resistant Organisms: MRSA Year Discovered:: 10/05/20 MDRO Source:: MRSA BUTTOCK Additional Past Surgical History / Comment(s): Left arm broken; surgical repair. Shunt placed 1970. Past Anesthesia/Blood Transfusion Reactions: No Reported Reaction Past Psychological History: No Psychological Hx Reported Smoking Status: Former smoker - Past Family History family Family Medical History: Unable to Obtain Medications and Allergies Home Medications Medication Instructions Recorded Confirmed Type Aspirin EC [Ecotrin Low Dose] 81 mg PO DAILY@69910/05/20 10/15/20 History Atorvastatin [Lipitor] 10 mg PO HS@209910/05/20 10/15/20 History Calcium Carbonate/Vitamin D3 1 cap PO DAILY@69910/05/20 10/15/20 History [Calcium 600 mg-D3 10 Mcg (400 Iu)] Citalopram Hydrobromide [CeleXA] 40 mg PO DAILY@69910/05/20 10/15/20 History Cyanocobalamin (Vitamin B-12) 1,000 mcg PO DAILY@69910/05/20 10/15/20 History [Vitamin B-12] Midodrine HCl [ProAmantine] 2.5 mg PO BID@0700,209910/05/20 10/15/20 History Naproxen 500 mg PO BID@0700,209910/05/20 10/15/20 History Phenytoin Sodium Extended 100 mg PO BID@0700,209910/05/20 10/15/20 History [Dilantin] QUEtiapine XR [SEROquel XR] 200 mg PO HS@209910/05/20 10/15/20 History Sennosides/Docusate Sodium [Senna 2 cap PO HS@209910/05/20 10/15/20 History Plus 8.6-50 mg Softgel] hydrOXYzine pamoate [Vistaril] 50 mg PO QID 10/05/20 10/15/20 History Famotidine [Pepcid] 20 mg PO BID@0700,1700 10/15/20 10/15/20 History Multivitamins, Thera [Multivitamin 1 tab PO DAILY@0700 10/15/20 10/15/20 History (formulary)] QUEtiapine [SEROquel] 200 mg PO HS@209910/15/20 10/15/20 History Sodium Chloride Tab 1 gm PO BID@0700,1700 10/15/20 10/15/20 History Vancomycin 1.5gm/250ml/0.9% Nacl 1 dose IV Q12H 10/15/20 10/15/20 History clonazePAM 0.5 mg PO TID@0700,1500,2100 10/15/20 10/15/20 History Allergies Allergy/AdvReac Type Severity Reaction Status Date / Time No Known Allergies Allergy Verified 10/15/20 22:42 Surgical - Exam Vital Signs Temp Pulse Resp BP Pulse Ox 98.2 F 74 16 146/59 98 10/15/20 19:04 10/15/20 19:04 10/15/20 19:04 10/15/20 19:04 10/15/20 19:04 Results - Labs 10/15/20 22:48 10/15/20 22:48 Microbiology - Last 24 Hours (Table) 10/15/20 21:58 Blood Culture - Preliminary Blood No Growth after 24 hours 10/15/20 22:48 Blood Culture - Preliminary Blood No Growth after 24 hours
--- NOTE | 2020-10-17 14:43 | P.PN ---
Subjective Progress Note Date: 10/17/20 Patient is doing fairly well today. No acute events overnight reported by nursing staff. Objective - Vital Signs Vital signs: Vital Signs Temp 98.2 F 10/17/20 08:27 Pulse 67 10/17/20 08:27 Resp 16 10/17/20 08:27 BP 149/74 10/17/20 08:27 Pulse Ox 96 10/17/20 08:27 Intake & Output 10/16/20 10/17/20 10/17/20 18:59 06:59 18:59 Intake Total 350 Balance 350 Weight 54.431 kg Intake: Oral 350 Other: Voiding Method Diaper Diaper # Voids 2 1 - Exam General: The patient is awake and alert, in no distress Eye: there is normal conjunctiva bilaterally. Neck: The neck is supple, there is no JVD. Cardiovascular: Normal S1-S2, no S3-S4, no murmurs. Respiratory: Lungs clear to auscultation bilaterally Gastrointestinal: Abdomen is soft, nontender Musculoskeletal: There is no pedal edema. Neurological:. Speech is normal. Skin: Skin is warm and dry - Labs CBC & Chem 7: 10/15/20 22:48 10/15/20 22:48 Labs: Microbiology - Last 24 Hours (Table) 10/15/20 21:58 Blood Culture - Preliminary Blood No Growth after 24 hours 10/15/20 22:48 Blood Culture - Preliminary Blood No Growth after 24 hours Assessment and Plan Assessment: This is a 69-year-old male with past medical history noted below who presented to the emergency room with worsening induration and redness on the righ buttock area. Patient was admitted to the hospital for further management of his medical problems noted below. 1. Recurrent right buttock abscess formation status post surgical evaluation a waiting further recommendation regarding incision and drainage. Continue IV antibiotic with vancomycin. Prior culture grew MRSA. Continue IV fluid hydration and pain control. 2. History of developmental delay, seizure disorder, chronic hyponatremia areas continue home medications. Seizure precautions. 3. DVT prophylaxis with subcu heparin
--- NOTE | 2020-10-17 16:02 | PN ---
PROGRESS NOTE DATE OF SERVICE: 10/17/2020 REASON FOR FOLLOWUP: Left gluteal abscess. INTERVAL HISTORY: The patient is currently afebrile. The patient is breathing comfortably. Patient is not a very good historian. No vomiting, diarrhea or other changes reported by the nursing staff. PHYSICAL EXAMINATION: Blood pressure 149/74 with a pulse of 67, temperature 98.2. He is 96% on room air. GENERAL DESCRIPTION: General description is an elderly male lying in bed in no distress. RESPIRATORY SYSTEM: Unlabored breathing. Clear to auscultation anteriorly. HEART: S1, S2. Regular rate and rhythm. ABDOMEN: Soft. No tenderness. LABS: Culture has been negative so far. DIAGNOSTIC IMPRESSION AND PLAN: Patient with a left gluteal abscess with a admission to hospital with concern with slight worsening. Surgery has seen the patient, recommending no further intervention. The patient is covered with vancomycin; to continue and monitor his kidney function closely. MMODL / IJN: [id number] /
[2020-10-17] MEDS: SODIUM CHLORIDE 0.9% 1,000 ML IV SCH (20:24)
[2020-10-17] MEDS: ATORVASTATIN 10 MG TAB PO SCH (20:25)
[2020-10-17] MEDS: SENNOSIDES-DOCUSATE SODIUM 1 EACH TAB PO SCH (20:25)
[2020-10-18] MEDS: VANCOMYCIN 1,000 MG in SODIUM CHLORIDE 0.9% 250 ML IVPB SCH (04:02)
[2020-10-18] MEDS: CITALOPRAM HYDROBROMIDE 20 MG TAB PO SCH (08:28)
[2020-10-18] MEDS: HEPARIN SODIUM,PORCINE/PF 5,000 UNIT/0.5 ML SYRINGE SQ SCH ×2 (08:28→15:37)
[2020-10-18] MEDS: FAMOTIDINE 20 MG TAB PO SCH ×2 (08:29→20:25)
[2020-10-18] MEDS: ASPIRIN 81 MG PO SCH (08:29)
[2020-10-18] MEDS: NAPROXEN 250 MG TAB PO SCH ×2 (08:29→20:24)
[2020-10-18] MEDS: clonazePAM 0.5 MG TAB PO SCH ×3 (08:29→20:26)
[2020-10-18] MEDS: CALCIUM CARB-VIT D 500 MG-5 MCG TAB PO SCH (08:30)
[2020-10-18] MEDS: PHENYTOIN SODIUM EXTENDED 100 MG CAP PO SCH ×2 (08:30→20:24)
[2020-10-18] MEDS: MIDODRINE 5 MG TAB PO SCH ×2 (08:30→20:26)
[2020-10-18] MEDS: hydrOXYzine pamoate 25 MG CAP PO SCH ×4 (08:30→20:25)
[2020-10-18] MEDS: QUEtiapine 100 MG TAB PO SCH ×2 (08:31→20:25)
[2020-10-18] MEDS: SODIUM CHLORIDE TAB 1 GM TAB PO SCH ×2 (08:32→17:14)
[2020-10-18 09:21] LABS: Basophils # (A) 0.12 X 10*3/uL (0.00-0.10); Basophils % (A) 1.6 %; Eosinophils # (A) 0.33 X 10*3/uL (0.04-0.35); Eosinophils % (A) 4.3 %; HCT 28.5 % (39.6-50.0); HGB 9.5 g/dL (13.0-17.0); Lymphocytes # (A) 1.13 X 10*3/uL (0.90-5.00); Lymphocytes % (A) 14.6 %; MCH 29.1 pg (27.0-32.0); MCHC 33.3 g/dL (32.0-37.0); MCV 87.2 fL (80.0-97.0); Mean Platelet Volume 9.1 fL (9.5-12.2); Monocytes # (A) 1.14 X 10*3/uL (0.20-1.00); Monocytes % (A) 14.7 %; Neutrophils # (A) 4.94 X 10*3/uL (1.80-7.70); Neutrophils % (A) 63.9 %; Platelet Count 672 X 10*3/uL (140-440); RBC 3.27 X 10*6/uL (4.40-5.60); RDW 14.2 % (11.5-14.5); WBC 7.73 X 10*3/uL (4.50-10.00)
[2020-10-18] MEDS ORDERED: VANCOMYCIN TROUGH DUE 1 EACH MISC MISCELLANE ONE (11:00)
[2020-10-18 11:06] LABS: African American GFR (CKD) >90 (>60 ml/min/1.73 sqM); Non-African American GFR(CKD) >90 (>60 ml/min/1.73 sqM)
[2020-10-18] MEDS ORDERED: VANCOMYCIN IV PER PHARMACY 1 EACH MISC MISCELLANE PRN (11:19)
[2020-10-18] MEDS: SODIUM CHLORIDE 0.9% 1,000 ML IV SCH (11:49)
--- NOTE | 2020-10-18 11:56 | P.PN ---
Subjective Progress Note Date: 10/18/20 CHIEF COMPLAINT: Left gluteal abscess HISTORY OF PRESENT ILLNESS: Patient is sitting up in bed. He reports no pain in his buttocks area. Per nursing staff area appears to be about the same. No drainage reported. Afebrile. WBC normalized at 7.73 hemoglobin 9.5 PHYSICAL EXAM: VITAL SIGNS: Reviewed. GENERAL: Well-developed in no acute distress. HEENT: No sclera icterus. Extraocular movements grossly intact. Moist buccal mucosa. Head is atraumatic, normocephalic. ABDOMEN: Soft. Nondistended. Nontender. NEUROLOGIC: Awake and Alert ASSESSMENT: 1. Left gluteal 5 cm area of induration. No fluctuance noted. PLAN: -No surgical intervention planned -Continue antibiotics per ID Physician Batch Dumper note has been reviewed by physician. Signing provider agrees with the documented findings, assessment, and plan of care. Objective - Vital Signs Vital signs: Vital Signs Temp 97.6 F 10/18/20 07:00 Pulse 58 L 10/18/20 07:00 Resp 17 10/18/20 07:00 BP 146/69 10/18/20 07:00 Pulse Ox 98 10/18/20 07:00 Intake & Output 10/17/20 10/18/20 10/18/20 18:59 06:59 18:59 Intake Total 250 Balance 250 Intake: Oral 250 Other: Voiding Method Diaper Diaper Incontinent # Voids 2 2 3 # Bowel Movements 2 1 - Labs CBC & Chem 7: 10/18/20 06:08 10/18/20 10:39 Labs: Abnormal Lab Results - Last 24 Hours (Table) 10/18/20 10/18/20 Range/Units 06:08 10:39 RBC 3.27 L (4.40-5.60) X 10*6/uL Hgb 9.5 L (13.0-17.0) g/dL Hct 28.5 L (39.6-50.0) % Plt Count 672 H (140-440) X 10*3/uL MPV 9.1 L (9.5-12.2) fL Immature Gran # 0.07 H (0.00-0.04) X 10*3/uL Monocytes # 1.14 H (0.20-1.00) X 10*3/uL Basophils # 0.12 H (0.00-0.10) X 10*3/uL Vancomycin Trough 32.0 H* ug/mL Microbiology - Last 24 Hours (Table) 10/15/20 21:58 Blood Culture - Preliminary Blood No Growth after 48 hours 10/15/20 22:48 Blood Culture - Preliminary Blood No Growth after 48 hours
--- NOTE | 2020-10-18 14:54 | P.PN ---
Subjective Progress Note Date: 10/18/20 Patient is doing well today. No acute events overnight reported by nursing staff. Objective - Vital Signs Vital signs: Vital Signs Temp 97.6 F 10/18/20 07:00 Pulse 58 L 10/18/20 07:00 Resp 17 10/18/20 07:00 BP 146/69 10/18/20 07:00 Pulse Ox 98 10/18/20 07:00 Intake & Output 10/17/20 10/18/20 10/18/20 18:59 06:59 18:59 Intake Total 250 Balance 250 Intake: Oral 250 Other: Voiding Method Diaper Diaper Incontinent # Voids 2 2 3 # Bowel Movements 2 1 - Exam General: The patient is awake and alert, in no distress Eye: there is normal conjunctiva bilaterally. Neck: The neck is supple, there is no JVD. Cardiovascular: Normal S1-S2, no S3-S4, no murmurs. Respiratory: Lungs clear to auscultation bilaterally Gastrointestinal: Abdomen is soft, nontender Musculoskeletal: There is no pedal edema. Neurological:. Speech is normal. Skin: Skin is warm and dry - Labs CBC & Chem 7: 10/18/20 06:08 10/18/20 10:39 Labs: Abnormal Lab Results - Last 24 Hours (Table) 10/18/20 10/18/20 Range/Units 06:08 10:39 RBC 3.27 L (4.40-5.60) X 10*6/uL Hgb 9.5 L (13.0-17.0) g/dL Hct 28.5 L (39.6-50.0) % Plt Count 672 H (140-440) X 10*3/uL MPV 9.1 L (9.5-12.2) fL Immature Gran # 0.07 H (0.00-0.04) X 10*3/uL Monocytes # 1.14 H (0.20-1.00) X 10*3/uL Basophils # 0.12 H (0.00-0.10) X 10*3/uL Vancomycin Trough 32.0 H* ug/mL Microbiology - Last 24 Hours (Table) 10/15/20 21:58 Blood Culture - Preliminary Blood No Growth after 48 hours 10/15/20 22:48 Blood Culture - Preliminary Blood No Growth after 48 hours Assessment and Plan Assessment: This is a 69-year-old male with past medical history noted below who presented to the emergency room with worsening induration and redness on the righ buttock area. Patient was admitted to the hospital for further management of his medical problems noted below. 1. Recurrent right buttock abscess formation: Seen and evaluated by general surgery. No plan for I&D at this time. Continue IV antibiotic with vancomycin. Prior culture grew MRSA. Continue IV fluid hydration and pain control. 2. History of developmental delay, seizure disorder, chronic hyponatremia areas continue home medications. Seizure precautions. 3. DVT prophylaxis with subcu heparin Patient will be discharged back to see home. He had an elevated vancomycin trough level this morning. Repeat lab work this morning. Awaiting social work to sure that someone will be following on his vancomycin dose after discharge. Anticipate discharge tomorrow.
--- NOTE | 2020-10-18 19:51 | PN ---
PROGRESS NOTE DATE OF SERVICE: 10/18/2020 REASON FOR FOLLOWUP: Left gluteal abscess and cellulitis MRSA. INTERVAL HISTORY: The patient is afebrile. The patient is pleasant. No agitation has been noticed. She is breathing comfortably on room air. No vomiting or diarrhea reported by the nursing staff. PHYSICAL EXAMINATION: Blood pressure is 145/82 with a pulse of 67, temperature 98.1. He is 99% on room air. General description is an elderly male lying in bed in no distress. Respiratory system: Unlabored breathing, clear to auscultation anteriorly. Heart S1, S2. Regular rate and rhythm. Abdomen soft, no tenderness. Left gluteal swelling. Redness has decreased. LABS: Vanco trough is high at 32. Blood culture negative. DIAGNOSTIC IMPRESSION AND PLAN: Patient with left gluteal abscess and cellulitis, admitted to the hospital for concern for possible worsening. Surgery saw the patient and recommended against redo drainage. Clinically responding to vancomycin, dosing to be adjusted to keep the trough around 15 for another week and close outpatient followup. MMODL / IJN: [id number] /
[2020-10-18] MEDS: SENNOSIDES-DOCUSATE SODIUM 1 EACH TAB PO SCH (20:26)
[2020-10-18] MEDS: ATORVASTATIN 10 MG TAB PO SCH (20:26)
[2020-10-19] MEDS: HEPARIN SODIUM,PORCINE/PF 5,000 UNIT/0.5 ML SYRINGE SQ SCH ×3 (00:12→16:11)
[2020-10-19] MEDS: MORPHINE SULFATE 4 MG/ML SYRINGE IV PRN (05:54)
[2020-10-19] MEDS: clonazePAM 0.5 MG TAB PO SCH ×2 (08:36→16:17)
[2020-10-19] MEDS: SODIUM CHLORIDE TAB 1 GM TAB PO SCH ×2 (08:37→16:17)
[2020-10-19] MEDS: QUEtiapine 100 MG TAB PO SCH (08:37)
[2020-10-19] MEDS: NAPROXEN 250 MG TAB PO SCH (08:37)
[2020-10-19] MEDS: CITALOPRAM HYDROBROMIDE 20 MG TAB PO SCH (08:37)
[2020-10-19] MEDS: ASPIRIN 81 MG PO SCH (08:37)
[2020-10-19] MEDS: FAMOTIDINE 20 MG TAB PO SCH (08:37)
[2020-10-19] MEDS: hydrOXYzine pamoate 25 MG CAP PO SCH ×3 (08:39→16:16)
[2020-10-19] MEDS: CALCIUM CARB-VIT D 500 MG-5 MCG TAB PO SCH (08:39)
[2020-10-19] MEDS: PHENYTOIN SODIUM EXTENDED 100 MG CAP PO SCH (08:39)
[2020-10-19] MEDS: MIDODRINE 5 MG TAB PO SCH (08:40)
[2020-10-19] MEDS ORDERED: VANCOMYCIN 1,250 MG in SODIUM CHLORIDE 0.9% 250 ML IVPB SCH (09:00)
[2020-10-19 10:18] LABS: African American GFR (CKD) 100.6 (60.0-200.0); Anion Gap 8.6 mmol/L (4.00-12.00); BUN/Creat Ratio 13.33 Ratio (12.00-20.00); Calcium 8.3 mg/dL (8.7-10.3); Carbon Dioxide 23.4 mmol/L (21.6-31.8); Non-African American GFR(CKD) 86.8 (60.0-200.0); Potassium 4.1 mmol/L (3.5-5.5)
--- NOTE | 2020-10-19 10:29 | P.DS ---
Providers Date of admission: 10/17/20 16:07 Expected date of discharge: 10/19/20 Attending physician: Orville Mcgovern MD Consults: 10/15/20 23:21 Consult Physician Urgent Consulting Provider: Raquel Pedro Consult Reason/Comments: Left gluteal abscess failed outpatient Do you want consulting provider notified?: Yes 10/16/20 15:27 Consult Physician Routine Consulting Provider: Temo Frazier Consult Reason/Comments: l gluteal abscess failed out pt treatment Do you want consulting provider notified?: Yes Primary care physician: [facility] Course: This is a 69-year-old male with past medical history noted below who presented to the emergency room with worsening induration and redness on the righ buttock area. Patient was admitted to the hospital for further management of his medical problems noted below. He was already being treated with IV vancomycin as an outpatient. 1. Recurrent right buttock abscess formation: Seen and evaluated by general alvarez rghilary. No plan for I&D at this time. Continue IV antibiotic with vancomycin to finish the course as prescribed. Prior culture grew MRSA. 2. History of developmental delay, seizure disorder, chronic hyponatremia areas continue home medications. Seizure precautions. Patient was seen and evaluated by me this morning. He does not have any complaints. No acute events overnight reported by nursing staff. Vancomycin trough returned this morning within acceptable range. Discussed with pharmacy to continue current dose and follow up outpatient. He should would be discharged in a stable condition. Patient Condition at Discharge: Fair Plan - Discharge Summary Discharge Rx Participant: Yes New Discharge Prescriptions: New RX: Vancomycin 1,250 mg IVPB Q24H vial Continue RX: Aspirin EC [Ecotrin Low Dose] 81 mg PO DAILY@0700 RX: Phenytoin Sodium Extended [Dilantin] 100 mg PO BID@0700,2100 RX: hydrOXYzine pamoate [Vistaril] 50 mg PO QID RX: Citalopram Hydrobromide [CeleXA] 40 mg PO DAILY@0700 RX: Calcium Carbonate/Vitamin D3 [Calcium 600 mg-D3 10 Mcg (400 Iu)] 1 cap PO DAILY@0700 RX: clonazePAM 0.5 mg PO TID@0700,1500,2100 RX: Multivitamins, Thera [Multivitamin (formulary)] 1 tab PO DAILY@0700 RX: Sodium Chloride Tab 1 gm PO BID@0700,1700 RX: Famotidine [Pepcid] 20 mg PO BID@0700,1700 Vancomycin 1.5gm/250ml/0.9% Nacl 1 dose IV Q12H RX: Cyanocobalamin (Vitamin B-12) [Vitamin B-12] 1,000 mcg PO DAILY@0700 RX: Sennosides/Docusate Sodium [Senna Plus 8.6-50 mg Softgel] 2 cap PO HS@2099 RX: QUEtiapine XR [SEROquel XR] 200 mg PO HS@2099 RX: Midodrine HCl [ProAmantine] 2.5 mg PO BID@699,2099 RX: Atorvastatin [Lipitor] 10 mg PO HS@2099 Discontinued QUEtiapine [SEROquel] 200 mg PO HS@2099 RX: Naproxen 500 mg PO BID@699,2099 Discharge Medication List RX: Aspirin EC [Ecotrin Low Dose] 81 mg PO DAILY@69910/05/20 [History] RX: Atorvastatin [Lipitor] 10 mg PO HS@209910/05/20 [History] RX: Calcium Carbonate/Vitamin D3 [Calcium 600 mg-D3 10 Mcg (400 Iu)] 1 cap PO DAILY@69910/05/20 [History] RX: Citalopram Hydrobromide [CeleXA] 40 mg PO DAILY@69910/05/20 [History] RX: Cyanocobalamin (Vitamin B-12) [Vitamin B-12] 1,000 mcg PO DAILY@0710/05/20 [History] RX: Midodrine HCl [ProAmantine] 2.5 mg PO BID@699,209910/05/20 [History] RX: Phenytoin Sodium Extended [Dilantin] 100 mg PO BID@07,209910/05/20 [History] RX: QUEtiapine XR [SEROquel XR] 200 mg PO HS@209910/05/20 [History] RX: Sennosides/Docusate Sodium [Senna Plus 8.6-50 mg Softgel] 2 cap PO HS@209910/05/20 [History] RX: hydrOXYzine pamoate [Vistaril] 50 mg PO QID 10/05/20 [History] RX: Famotidine [Pepcid] 20 mg PO BID@0700,1700 10/15/20 [History] RX: Multivitamins, Thera [Multivitamin (formulary)] 1 tab PO DAILY@0700 10/15/20 [History] RX: Sodium Chloride Tab 1 gm PO BID@0700,1700 10/15/20 [History] RX: clonazePAM 0.5 mg PO TID@0700,1500,2100 10/15/20 [History] Vancomycin 1.5gm/250ml/0.9% Nacl 1 dose IV Q12H 10/15/20 [History] RX: Vancomycin 1,250 mg IVPB Q24H vial 10/19/20 [Rx] Follow up Appointment(s)/Referral(s): Solomon Ring MD [Primary Care Provider] - 1-2 days Discharge Disposition: TRANSFER TO SNF/ECF
--- NOTE | 2020-10-19 11:55 | P.PN ---
Subjective Progress Note Date: 10/19/20 CHIEF COMPLAINT: Left gluteal abscess HISTORY OF PRESENT ILLNESS: Patient is sitting up in bed. He reports no pain in his buttocks area. No drainage reported. Afebrile PHYSICAL EXAM: VITAL SIGNS: Reviewed. GENERAL: Well-developed in no acute distress. HEENT: No sclera icterus. Extraocular movements grossly intact. Moist buccal mucosa. Head is atraumatic, normocephalic. ABDOMEN: Soft. Nondistended. Nontender. NEUROLOGIC: Awake and Alert Skin: Area of induration on the left gluteus is smaller in size and softer ASSESSMENT: 1. Left gluteal 5 cm area of induration. No fluctuance noted. showing improvement with antibiotics. PLAN: -No surgical intervention planned -Continue antibiotics per ID -Patient is stable from surgical standpoint for discharge Physician Oil Change Technician note has been reviewed by physician. Signing provider agrees with the documented findings, assessment, and plan of care. Objective - Vital Signs Vital signs: Vital Signs Temp 97.8 F 10/19/20 08:00 Pulse 58 L 10/19/20 08:00 Resp 16 10/19/20 08:00 BP 146/69 10/19/20 08:00 Pulse Ox 96 10/19/20 08:00 Intake & Output 10/18/20 10/19/20 10/19/20 18:59 06:59 18:59 Other: Voiding Method Incontinent Incontinent Diaper Incontinent # Voids 6 3 # Bowel Movements 1 - Labs CBC & Chem 7: 10/18/20 06:08 10/19/20 06:20 Labs: Abnormal Lab Results - Last 24 Hours (Table) 10/19/20 Range/Units 06:20 Sodium 133 L (135-145) mmol/L Calcium 8.3 L (8.7-10.3) mg/dL Microbiology - Last 24 Hours (Table) 10/15/20 21:58 Blood Culture - Preliminary Blood No Growth after 72 hours 10/15/20 22:48 Blood Culture - Preliminary Blood No Growth after 72 hours
[2020-10-19 13:56] LABS: Basophils # (A) 0.14 X 10*3/uL (0.00-0.10); Basophils % (A) 2.2 %; Eosinophils # (A) 0.33 X 10*3/uL (0.04-0.35); Eosinophils % (A) 5.3 %; HCT 29.3 % (39.6-50.0); HGB 9.5 g/dL (13.0-17.0); Lymphocytes # (A) 1.02 X 10*3/uL (0.90-5.00); Lymphocytes % (A) 16.4 %; MCH 28.4 pg (27.0-32.0); MCHC 32.4 g/dL (32.0-37.0); MCV 87.5 fL (80.0-97.0); Mean Platelet Volume 9.5 fL (9.5-12.2); Monocytes % (A) 14.4 %; Neutrophils # (A) 3.78 X 10*3/uL (1.80-7.70); Neutrophils % (A) 60.7 %; Platelet Count 692 X 10*3/uL (140-440); RBC 3.35 X 10*6/uL (4.40-5.60); RDW 14.3 % (11.5-14.5); WBC 6.23 X 10*3/uL (4.50-10.00)
[2020-10-19 15:16] VITALS: BP 144/74; PULSE 68; RESP 17; TEMP 97.3
--- NOTE | 2020-10-19 16:49 | PN ---
PROGRESS NOTE DATE OF SERVICE: 10/19/2020 REASON FOR FOLLOWUP: Left gluteal abscess and cellulitis. INTERVAL HISTORY: The patient is afebrile. The patient is currently breathing comfortably, hemodynamically stable. Not a very good historian, though. No vomiting or diarrhea has been reported. PHYSICAL EXAMINATION: Blood pressure is 146/69, pulse of 50, temperature 97.8, He is 96% on room air. GENERAL DESCRIPTION: General description is an elderly male lying in bed in no distress. RESPIRATORY SYSTEM: Unlabored breathing. Clear to auscultation anteriorly. HEART: S1, S2. Regular rate and rhythm. ABDOMEN: Soft. No tenderness. EXTREMITIES: No edema of the feet. LABS: Hemoglobin is 9.4, white count 6.23. Creatinine 0.9. Vancomycin trough is 17..5 DIAGNOSTIC IMPRESSION AND PLAN: Patient with left gluteal abscess. Overall improvement. No plan for further surgical . To continue vancomycin for another week with careful monitoring of his kidney function and close outpatient followup. MMODL / IJN: [id number] /
== END 2020-10-19 17:51 | DRG 603 ==
LOC: EC 18:04 → 1SOBS 23:16 → 6NMEDSUR 10-16 06:51 → OBSVTOIN 10-17 16:07
PROVIDERS: ADMIT Internal Medicine; ATTEND Internal Medicine
DX: L02.31 Cutaneous abscess of buttock (principal); E87.1 Hypo-osmolality and hyponatremia; G40.909 Epilepsy, unspecified, not intractable, without status epilepticus; E78.5 Hyperlipidemia, unspecified; D64.9 Anemia, unspecified; B95.62 Methicillin resistant Staphylococcus aureus infection as the cause of diseases classified elsewhere; Z79.82 Long term (current) use of aspirin; Z86.14 Personal history of Methicillin resistant Staphylococcus aureus infection; Z87.891 Personal history of nicotine dependence; F88 Other disorders of psychological development; Z79.899 Other long term (current) drug therapy
CPT/HCPCS: 36415; 80048; 80053; 80202; 82565; 85025; 87040; 96374; 99284

== ENCOUNTER → 2020-11-05 | Outpatient (CLI) | payer MEDICARE, OTHER ==
[2020-11-05 15:58] LABS: African American GFR (CKD) >90 (>60 ml/min/1.73 sqM); Blood Urea Nitrogen 18 mg/dL (9-20); Non-African American GFR(CKD) >90 (>60 ml/min/1.73 sqM)
--- NOTE | 2020-11-06 09:07 | CT ---
EXAMINATION TYPE: CT pelvis w con DATE OF EXAM: 11/05/2020 COMPARISON: CT pelvis 10/05/2020 from outside institution HISTORY: Abscess of buttock. CT DLP: 383 mGycm Automated exposure control for dose reduction was used. TECHNIQUE: Helical acquisition of images from the lung bases through the pelvis have been completed. CONTRAST: Performed with Oral Contrast and with IV Contrast, patient injected with 80 mL of Isovue M300. FINDINGS: The left buttock abscess seen on prior exam has decreased in size and now measures approximately 5.2 x 4.1 cm x 3.1 cm in AP dimension and extension from the level of ischial tuberosity on the left, het erogeneous enhancement is present, is likely local cellulitis, skin thickening, some skin thickening and possible cellulitic changes also present on the right at the same level posterior tissue tuberosi ties REPRODUCTIVE ORGANS: No significant interval change is seen BOWEL: No significant interval change is seen. FREE AIR: No Free Air visible. ASCITES: None visible. PELVIC ADENOPATHY: None visualized. RETROPERITONEAL ADENOPATHY: No Retroperitoneal Adenopathy visible. URINARY BLADDER: No significant abnormality is seen. OSSEOUS STRUCTURES: No significant interval change is seen. There is marked arthropathy involving th e left hip with protrusio deformity, cortical thickening at the level of acetabulum and left ilium IMPRESSION: THERE IS SOME INTERVAL IMPROVEMENT IN PATIENT'S ABSCESS. THERE MAY BE ASSOCIATED CELLULITIS DESCRI BED. UNDERLYING SKELETAL CHANGES SHOW SIMILAR APPEARANCE TO PRIOR EXAM
== END | disposition home or self-care (01) ==
LOC: RADCTMAIN 15:13
PROVIDERS: ATTEND Internal Medicine Infectious Disease
DX: L02.31 Cutaneous abscess of buttock (principal)
CPT/HCPCS: 82565; 84520; 72193; 36415; Q9967 ×2

== ENCOUNTER 2023-06-29 18:56 | Inpatient (IN) | payer MEDICARE, OTHER ==
--- NOTE | 2023-06-29 19:20 | ED ---
General Adult HPI - General Chief complaint: Abdominal Pain Stated complaint: Abdominal Pain Time Seen by Provider: 06/29/23 19:01 Source: patient, EMS, RN notes reviewed Mode of arrival: EMS Limitations: no limitations - History of Present Illness Initial comments: Patient is a 72-year-old male present to the emergency department from [facility] home. Patient complains of abdominal discomfort. Patient is somewhat a poor historian. Patient states onset of symptoms was today. Discomfort is diffuse. No history of similar symptoms previously. Last bowel movement was just a couple days ago. No nausea or vomiting. No fever. - Related Data Home Medications Medication Instructions Recorded Confirmed Aspirin EC [Ecotrin Low Dose] 81 mg PO DAILY@69910/05/20 06/29/23 Atorvastatin [Lipitor] 10 mg PO HS 10/05/20 06/29/23 Cyanocobalamin (Vitamin B-12) 1,000 mcg PO DAILY@00 10/05/20 06/29/23 [Vitamin B-12] Midodrine HCl [ProAmantine] 2.5 mg PO BID@0700,209910/05/20 06/29/23 Phenytoin Sodium Extended 100 mg PO BID@0700,209910/05/20 06/29/23 [Dilantin] QUEtiapine XR [SEROquel XR] 200 mg PO HS 10/05/20 06/29/23 Sodium Chloride Tab 1 gm PO TID@0700,1700,209910/15/20 06/29/23 Apixaban [Eliquis] 2.5 mg PO BID@0700,209906/29/23 06/29/23 Ascorbic Acid [Vitamin C] 500 mg PO BID@0700,209906/29/23 06/29/23 Benzonatate [Tessalon Perle] 200 mg PO TID PRN 06/29/23 06/29/23 Budesonide [Pulmicort] 0.5 mg INHALATION RT-BID 06/29/23 06/29/23 Cholecalciferol [Vitamin D3 (125 125 mcg PO DAILY@0700 06/29/23 06/29/23 Mcg = 5000 Iu)] Ipratropium-Albuterol Nebulize 3 ml INHALATION RT-TID 06/29/23 06/29/23 [Duoneb 0.5 mg-3 mg/3 ml Soln] L.acidoph,Paracasei, B.lactis 1 cap PO BID@0700,2100 06/29/23 06/29/23 [Probiotic] Lactulose [Constulose] 20 gm PO BID@0700,1700 06/29/23 06/29/23 Levothyroxine Sodium [Synthroid] 75 mcg PO DAILY@0700 06/29/23 06/29/23 Magnesium Hydroxide [Milk of 2,400 mg PO ONCE PRN 06/29/23 06/29/23 Magnesia] Meloxicam [Mobic] 7.5 mg PO DAILY@0700 06/29/23 06/29/23 PARoxetine [Paxil] 20 mg PO HS 06/29/23 06/29/23 QUEtiapine [SEROquel] 200 mg PO HS 06/29/23 06/29/23 Sennosides/Docusate Sodium 2 tab PO BID@0700,209906/29/23 06/29/23 [Senna-S 8.6-50 mg Tablet] Tolterodine [Detrol] 2 mg PO BID@0700,209906/29/23 06/29/23 Zinc Gluconate [Zinc] 50 mg PO DAILY@0700 06/29/23 06/29/23 lamoTRIgine [LaMICtal] 50 mg PO DAILY@0700 06/29/23 06/29/23 Allergies Allergy/AdvReac Type Severity Reaction Status Date / Time No Known Allergies Allergy Verified 06/29/23 20:35 Review of Systems ROS Statement: Those systems with pertinent positive or pertinent negative responses have been documented in the HPI. ROS Other: All systems not noted in ROS Statement are negative. Constitutional: Denies: fever Eyes: Denies: eye pain ENT: Denies: ear pain Gastrointestinal: Reports: as per HPI, abdominal pain Past Medical History Past Medical History: Unable to Obtain, Seizure Disorder Additional Past Medical History / Comment(s): Mentally challenged. History of Any Multi-Drug Resistant Organisms: MRSA Date of last positivie culture/infection: 10/05/20 MDRO Source:: MRSA BUTTOCK Additional Past Surgical History / Comment(s): Left arm broken; surgical repair. Shunt placed 1970. Past Anesthesia/Blood Transfusion Reactions: No Reported Reaction Past Psychological History: No Psychological Hx Reported Smoking Status: Former smoker Past Alcohol Use History: None Reported Past Drug Use History: None Reported - Past Family History family Family Medical History: Unable to Obtain General Exam Limitations: no limitations General appearance: alert, in no apparent distress Head exam: Present: normocephalic ENT exam: Present: mucous membranes dry Neck exam: Present: normal inspection Respiratory exam: Present: normal lung sounds bilaterally Cardiovascular Exam: Present: regular rate, normal rhythm GI/Abdominal exam: Present: soft, distended, tenderness (Mild to moderate diffuse tenderness). Absent: guarding, rebound, rigid, pulsatile mass Extremities exam: Present: other (Left arm contracted. Patient states this is from previous fracture) Neurological exam: Present: alert Psychiatric exam: Present: normal affect, normal mood Skin exam: Present: normal color Course Vital Signs 06/29/23 18:58 Temperature 99.4 F Pulse Rate 76 Respiratory 20 Rate Blood Pressure 148/78 O2 Sat by Pulse 95 Oximetry Medical Decision Making - Medical Decision Making Was pt. sent in by a medical professional or institution (, PA, ONCOLOGY RN, urgent care, hospital, or shelter...) When possible be specific @ -Patient was sent from [facility] home Did you speak to anyone other than the patient for history (EMS, parent, family, police, friend...)? What history was obtained from this source @ -No Did you review nursing and triage notes (agree or disagree)? Why? @ -I reviewed and agree with nursing and triage notes Were old charts reviewed (outside hosp., previous admission, EMS record, old EKG, old radiological studies, urgent care reports/EKG's, shelter records)? Report findings @ -No old charts were reviewed Differential Diagnosis (chest pain, altered mental status, abdominal pain women, abdominal pain men, vaginal bleeding, weakness, fever, dyspnea, syncope, headache, dizziness, GI bleed, back pain, seizure, CVA, palpatations, mental he alth, musculoskeletal)? @ -MDM differential abdominal pain differential Abdominal Pain Men: Appendicitis, cholecystitis, diverticulosis, ischemic bowel, pancreatitis, hepatitis, UTI, gastroenteritis, AAA, incarcerated hernia, bowel obstruction, constipation, inflammatory bowel, hepatitis, peptic ulcer disease, splenic infarction, perforated viscus, testicular torsion, this is not meant to be an all-inclusive list EKG interpreted by me (3pts min.). @ -As above X-rays interpreted by me (1pt min.). @ -None done CT interpreted by me (1pt min.). @ -CT scan shows bilateral pleural effusions. Destructive changes left hip with U/S interpreted by me (1pt. min.). @ -None done What testing was considered but not performed or refused? (CT, X-rays, U/S, labs)? Why? @ -None What meds were considered but not given or refused? Why? @ -None Did you discuss the management of the patient with other professionals (professionals i.e. , PA, ONCOLOGY RN, lab, RT, psych nurse, social services technician, medical resident, teacher, hotel security officer, watch case polisher)? Give summary @ -Case was discussed with Dr. Moreno who will admit covering Dr. Jaimes Was smoking cessation discussed for >3mins.? @ -No Was critical care preformed (if so, how long)? @ -No Were there social determinants of health that impacted care today? How? ( Homelessness, low income, unemployed, alcoholism, drug addiction, transportation, low edu. Level, literacy, decrease access to med. care, detention, rehab)? @ -No Was there de-escalation of care discussed even if they declined (Discuss DNR or withdrawal of care, Hospice)? DNR status @ -No What co-morbidities impacted this encounter? (DM, HTN, Smoking, COPD, CAD, Cancer, CVA, ARF, Chemo, Hep., AIDS, mental health diagnosis, sleep apnea, morbid obesity)? @ -None Was patient admitted / discharged? Hospital course, mention meds given and route, prescriptions, significant lab abnormalities, going to OR and other pertinent info. @ -Patient reevaluated and still complaining of discomfort. Range of motion of hips bilateral with significant discomfort. Patient will be admitted with consult for general surgery and orthopedics. Undiagnosed new problem with uncertain prognosis? @ -No Drug Therapy requiring intensive monitoring for toxicity (Heparin, Nitro, Insulin, Cardizem)? @ -No Were any procedures done? @ -No Diagnosis/symptom? @ -Abdominal pain, hip pain Acute, or Chronic, or Acute on Chronic? @ -Acute, acute Uncomplicated (without systemic symptoms) or Complicated (systemic symptoms)? @ -Default Side effects of treatment? @ -No Exacerbation, Progression, or Severe Exacerbation? @ -No Poses a threat to life or bodily function? How? (Chest pain, [place], [place], pneumonia, PE, COPD, DKA, ARF, appy, cholecystitis, CVA, Diverticulitis, Homicidal, Suicidal, threat to staff... and all critical care pts) @ -No - Lab Data Result diagrams: 06/29/23 19:25 06/29/23 19:25 Lab Results 06/29/23 06/29/23 Range/Units 19:25 19:25 WBC 7.5 (3.8-10.6) k/uL RBC 4.06 L (4.30-5.90) m/uL Hgb 12.3 L (13.0-17.5) gm/dL Hct 36.0 L (39.0-53.0) % MCV 88.7 (80.0-100.0) fL MCH 30.4 (25.0-35.0) pg MCHC 34.2 (31.0-37.0) g/dL RDW 12.9 (11.5-15.5) % Plt Count 340 (150-450) k/uL MPV 7.6 Neutrophils % 67 % Lymphocytes % 17 % Monocytes % 7 % Eosinophils % 6 % Basophils % 1 % Neutrophils # 5.0 (1.3-7.7) k/uL Lymphocytes # 1.3 (1.0-4.8) k/uL Monocytes # 0.5 (0-1.0) k/uL Eosinophils # 0.4 (0-0.7) k/uL Basophils # 0.1 (0-0.2) k/uL Sodium 132 L (137-145) mmol/L Potassium 4.3 (3.5-5.1) mmol/L Chloride 102 (98-107) mmol/L Carbon Dioxide 24 (22-30) mmol/L Anion Gap 6 mmol/L BUN 15 (9-20) mg/dL Creatinine 0.44 L (0.66-1.25) mg/dL Est GFR (CKD-EPI)AfAm >90 (>60 ml/min/1.73 sqM) Est GFR (CKD-EPI)NonAf >90 (>60 ml/min/1.73 sqM) Glucose 100 H (74-99) mg/dL Calcium 8.4 (8.4-10.2) mg/dL Total Bilirubin 0.4 (0.2-1.3) mg/dL AST 36 (17-59) U/L ALT 33 (4-49) U/L Alkaline Phosphatase 204 H (38-126) U/L Total Protein 7.0 (6.3-8.2) g/dL Albumin 3.7 (3.5-5.0) g/dL Amylase 68 (30-110) U/L Lipase 108 (23-300) U/L Disposition Clinical Impression: Abdominal pain, Hip pain Disposition: ADMITTED IP TO THIS HOSP Is patient prescribed a controlled substance at d/c from ED?: No Referrals: Solomon Ring MD [Primary Care Provider] - 1-2 days Time of Disposition: 23:40
[2023-06-29 19:43] LABS: Basophils # (A) 0.1 k/uL (0-0.2); Basophils % (A) 1 %; Eosinophils # (A) 0.4 k/uL (0-0.7); Eosinophils % (A) 6 %; HGB 12.3 gm/dL (13.0-17.5); Lymphocytes # (A) 1.3 k/uL (1.0-4.8); Lymphocytes % (A) 17 %; MCH 30.4 pg (25.0-35.0); MCHC 34.2 g/dL (31.0-37.0); MCV 88.7 fL (80.0-100.0); Mean Platelet Volume 7.6; Monocytes # (A) 0.5 k/uL (0-1.0); Monocytes % (A) 7 %; Neutrophils % (A) 67 %; Platelet Count 340 k/uL (150-450); RBC 4.06 m/uL (4.30-5.90); RDW 12.9 % (11.5-15.5); WBC 7.5 k/uL (3.8-10.6)
[2023-06-29 19:59] LABS: ALT 33 U/L (4-49); AST 36 U/L (17-59); African American GFR (CKD) >90 (>60 ml/min/1.73 sqM); Albumin 3.7 g/dL (3.5-5.0); Alkaline Phosphatase 204 U/L (38-126); Amylase 68 U/L (30-110); Anion Gap 6 mmol/L; Blood Urea Nitrogen 15 mg/dL (9-20); Calcium 8.4 mg/dL (8.4-10.2); Carbon Dioxide 24 mmol/L (22-30); Chloride 102 mmol/L (98-107); Glucose 100 mg/dL (74-99); Lipase 108 U/L (23-300); Non-African American GFR(CKD) >90 (>60 ml/min/1.73 sqM); Potassium 4.3 mmol/L (3.5-5.1); Sodium 132 mmol/L (137-145); Total Bilirubin 0.4 mg/dL (0.2-1.3)
[2023-06-29] MEDS: MORPHINE SULFATE 4 MG/ML SYRINGE IVP STA (20:04)
[2023-06-29] MEDS: SODIUM CHLORIDE 0.9% 1,000 ML IV STA (20:04)
[2023-06-29] MEDS: PANTOPRAZOLE 40 MG/10 ML VIAL IVP STA (20:05)
[2023-06-29] MEDS: ONDANSETRON 4 MG/2 ML VIAL IVP STA (20:05)
--- NOTE | 2023-06-29 22:01 | CT ---
EXAMINATION TYPE: CT abdomen pelvis w con DATE OF EXAM: 06/29/2023 COMPARISON: None HISTORY: Patient brought by EMS from [facility] with complaints of abdominal pain. Per EMS, patient has a pa lpable mass in RLQ. Per EMS, patient indicates it hurts to urinate and patient has chronic constipati on. CT DLP: 813.6 mGycm Automated exposure control for dose reduction was used. TECHNIQUE: Helical acquisition of images was performed from the lung bases through the pelvis. CONTRAST: Performed without Oral Contrast and with IV Contrast, patient injected with 100 mL of Isovue 300. Findings: There are moderate pleural effusions and bibasilar infiltrates consistent with pneumonia or atelectas is. The gallbladder is normal. There is no focal mass or organomegaly involving the liver, pancreas, spleen or adrenal glands. There is no solid renal mass or hydronephrosis. The caliber of the abdominal aorta is normal in the lower retroperitoneal adenopathy The bowel loops are normal in caliber and there is no evidence of bowel obstruction. There is no free intraperitoneal air or fluid. There is a right inguinal hernia containing fluid. There are multiple urinary bladder diverticula. 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 Septic hip should be considered. There is no pelvic mass or adenopathy IMPRESSION: 1. Moderate bilateral pleural effusions and bibasilar infiltrate/atelectasis. 2. Marked destruction of the right hip joint with joint effusion. The possibility of septic hip shoul d be considered.
[2023-06-29] MEDS ORDERED: NALOXONE 0.4 MG/ML 1 ML VIAL IV PRN (23:42)
[2023-06-30] MEDS: SODIUM CHLORIDE 0.9% 1,000 ML IV SCH (00:01)
[2023-06-30] MEDS: MORPHINE SULFATE 4 MG/ML SYRINGE IV PRN (01:17)
[2023-06-30 01:25] LABS: Appearance,Urine Clear (Clear); Bilirubin,Urine Negative (Negative); Blood,Urine Negative (Negative); Color,Urine Light Yellow; Glucose,Urine (UA) Negative (Negative); Ketones,Urine Negative (Negative); Leukocyte Esterase,Urine Negative (Negative); Nitrite,Urine Negative (Negative); Protein,Urine Trace (Negative); Specific Gravity,Urine 1.032 (1.001-1.035); Urobilinogen,Urine <2.0 mg/dL (<2.0)
--- NOTE | 2023-06-30 04:00 | P.HPIM ---
History of Present Illness H&P Date: 06/30/23 Patient is a 72-year-old male with a PMH of cognitive delay, left arm fracture with contracture, hypothyroidism, hyperlipidemia, seizure disorder, resident of [facility], who was brought to the hospital via EMS due to complaints of abdominal and right arm pain. The patient is difficult to understand due to a speech impediment. He does report that he has been experiencing right arm and elbow pain over the past several days. He also reports of intermittent abdominal pain over the past several weeks with episodes of diarrhea. He denied experiencing chest discomfort, shortness of breath, fever, chills, cough, nausea, vomiting. CT abdomen and pelvis in the emergency room revealed bilateral pleural effusions with destruction of the right hip joint with effusion concerning for septic arthritis. Laboratory evaluation was remarkable for hemoglobin 12.3, sodium 132, WBC count 7.5, BUN 15, creatinine 0.44, with unremarkable UA and negative viral respiratory panel with lactic acid 0.7. ED documentation reviewed and case discussed with ED provider. Review of systems: Pertinent positives and negatives as discussed in HPI, a complete review of systems was performed and all other systems are negative. Physical examination: Vital signs reviewed General: non toxic, no distress, appears older than stated age, thin Derm: no unusual rashes/lesions, warm Head: atraumatic, normocephalic, symmetric Eyes: EOMI, no lid lag, anicteric sclera, pupils equal round reactive to light ENT: Nose and ears atraumatic Neck: No cervical lymphadenopathy, trachea midline, supple Mouth: no lip lesion, mucus membranes moist Cardiovascular: S1S2 reg, no murmur, positive dorsalis pedis pulse bilateral, no edema Lungs: Some scattered coarse breath sounds without wheezing, no accessory muscle use Abdominal: soft, nontender to palpation, no guarding Ext: RUE strength 4 out of 5 with LUE contracture noted, bilateral LE strength 4 out of 5, minimal elicited tenderness of RUE, nontender right hip Neuro: no gross focal neuro deficits aside from LUE contracture Psych: Alert, oriented to person, place, and year, not oriented to month Assessment: Right hip abnormal imaging Right arm pain Hyponatremia Chronic conditions: Cognitive delay, left arm fracture with contracture, hypothyroidism, hyperlipidemia, seizure disorder Imaging: CT abdomen and pelvis in the emergency room revealed bilateral pleural effusions with destruction of the right hip joint with effusion concerning for septic arthritis. Data Review: Laboratory evaluation was remarkable for hemoglobin 12.3, sodium 132, WBC count 7.5, BUN 15, creatinine 0.44, with unremarkable UA and negative viral respiratory panel with lactic acid 0.7. Plan: Orthopedic surgery consult Fall precautions Obtain RUE x-ray Monitor BMP Continue IV fluids with normal saline 75 cc/h Resume home meds DVT prophylaxis: Eliquis The patient is admitted with an anticipated less than 2 midnight stay for evaluation of right arm pain CODE STATUS: Full Code Discussed with: Patient Anticipated discharge place: [facility] Past Medical History Past Medical History: Unable to Obtain, Seizure Disorder Additional Past Medical History / Comment(s): Mentally challenged. History of Any Multi-Drug Resistant Organisms: MRSA Date of last positivie culture/infection: 10/05/20 MDRO Source:: MRSA BUTTOCK Additional Past Surgical History / Comment(s): Left arm broken; surgical repair. Shunt placed 1970. Past Anesthesia/Blood Transfusion Reactions: No Reported Reaction Past Psychological History: No Psychological Hx Reported Smoking Status: Former smoker Past Alcohol Use History: None Reported Past Drug Use History: None Reported - Past Family History family Family Medical History: Unable to Obtain (Patient does not know any family history) Medications and Allergies Home Medications Medication Instructions Recorded Confirmed Type Aspirin EC [Ecotrin Low Dose] 81 mg PO DAILY@0700 10/05/20 06/29/23 History Atorvastatin [Lipitor] 10 mg PO HS 10/05/20 06/29/23 History Cyanocobalamin (Vitamin B-12) 1,000 mcg PO DAILY@0700 10/05/20 06/29/23 History [Vitamin B-12] Midodrine HCl [ProAmantine] 2.5 mg PO BID@0700,209910/05/20 06/29/23 History Phenytoin Sodium Extended 100 mg PO BID@0700,209910/05/20 06/29/23 History [Dilantin] QUEtiapine XR [SEROquel XR] 200 mg PO HS 10/05/20 06/29/23 History Sodium Chloride Tab 1 gm PO TID@0700,1700,209910/15/20 06/29/23 History Apixaban [Eliquis] 2.5 mg PO BID@0700,209906/29/23 06/29/23 History Ascorbic Acid [Vitamin C] 500 mg PO BID@0700,209906/29/23 06/29/23 History Benzonatate [Tessalon Perle] 200 mg PO TID PRN 06/29/23 06/29/23 History Budesonide [Pulmicort] 0.5 mg INHALATION RT-BID 06/29/23 06/29/23 History Cholecalciferol [Vitamin D3 (125 125 mcg PO DAILY@69906/29/23 06/29/23 History Mcg = 5000 Iu)] Ipratropium-Albuterol Nebulize 3 ml INHALATION RT-TID 06/29/23 06/29/23 History [Duoneb 0.5 mg-3 mg/3 ml Soln] L.acidoph,Paracasei, B.lactis 1 cap PO BID@00,209906/29/23 06/29/23 History [Probiotic] Lactulose [Constulose] 20 gm PO BID@0700,1700 06/29/23 06/29/23 History Levothyroxine Sodium [Synthroid] 75 mcg PO DAILY@69906/29/23 06/29/23 History Magnesium Hydroxide [Milk of 2,400 mg PO ONCE PRN 06/29/23 06/29/23 History Magnesia] Meloxicam [Mobic] 7.5 mg PO DAILY@69906/29/23 06/29/23 History PARoxetine [Paxil] 20 mg PO HS 06/29/23 06/29/23 History QUEtiapine [SEROquel] 200 mg PO HS 06/29/23 06/29/23 History Sennosides/Docusate Sodium 2 tab PO BID@0700,209906/29/23 06/29/23 History [Senna-S 8.6-50 mg Tablet] Tolterodine [Detrol] 2 mg PO BID@0700,209906/29/23 06/29/23 History Zinc Gluconate [Zinc] 50 mg PO DAILY@69906/29/23 06/29/23 History lamoTRIgine [LaMICtal] 50 mg PO DAILY@69906/29/23 06/29/23 History Allergies Allergy/AdvReac Type Severity Reaction Status Date / Time No Known Allergies Allergy Verified 06/29/23 20:35 Physical Exam Vitals: Vital Signs Temp Pulse Resp BP Pulse Ox 06/30/23 02:07 72 18 137/82 91 L 06/29/23 22:59 98.2 F 84 20 133/55 92 L 06/29/23 18:58 99.4 F 76 20 148/78 95 Intake and Output 06/29/23 06/29/23 06/30/23 14:59 22:59 06:59 Other: Weight 54.431 kg Results CBC & Chem 7: 06/29/23 19:25 06/29/23 19:25 Labs: Abnormal Lab Results - Last 24 Hours (Table) 06/29/23 06/29/23 06/30/23 Range/Units 19:25 19:25 01:00 RBC 4.06 L (4.30-5.90) m/uL Hgb 12.3 L (13.0-17.5) gm/dL Hct 36.0 L (39.0-53.0) % Sodium 132 L (137-145) mmol/L Creatinine 0.44 L (0.66-1.25) mg/dL Glucose 100 H (74-99) mg/dL Alkaline Phosphatase 204 H (38-126) U/L Urine Protein Trace H (Negative)
[2023-06-30 04:58] LABS: Basophils % (A) 1 %; Eosinophils # (A) 0.3 k/uL (0-0.7); Eosinophils % (A) 5 %; HCT 34.1 % (39.0-53.0); HGB 11.5 gm/dL (13.0-17.5); Lymphocytes # (A) 1.5 k/uL (1.0-4.8); Lymphocytes % (A) 25 %; MCH 30.7 pg (25.0-35.0); MCHC 33.8 g/dL (31.0-37.0); MCV 90.8 fL (80.0-100.0); Mean Platelet Volume 7.4; Monocytes # (A) 0.6 k/uL (0-1.0); Monocytes % (A) 9 %; Neutrophils # (A) 3.5 k/uL (1.3-7.7); Neutrophils % (A) 58 %; Platelet Count 204 k/uL (150-450); RBC 3.76 m/uL (4.30-5.90); RDW 12.7 % (11.5-15.5); WBC 6.1 k/uL (3.8-10.6)
[2023-06-30 05:24] LABS: ALT 34 U/L (4-49); AST 36 U/L (17-59); African American GFR (CKD) >90 (>60 ml/min/1.73 sqM); Albumin 3.7 g/dL (3.5-5.0); Alkaline Phosphatase 218 U/L (38-126); Anion Gap 6 mmol/L; Blood Urea Nitrogen 12 mg/dL (9-20); Calcium 8.7 mg/dL (8.4-10.2); Carbon Dioxide 24 mmol/L (22-30); Chloride 102 mmol/L (98-107); Glucose 97 mg/dL (74-99); Non-African American GFR(CKD) >90 (>60 ml/min/1.73 sqM); Potassium 4.3 mmol/L (3.5-5.1); Sodium 132 mmol/L (137-145); Total Bilirubin 0.4 mg/dL (0.2-1.3)
--- NOTE | 2023-06-30 05:26 | XR ---
EXAMINATION TYPE: XR elbow complete LT DATE OF EXAM: 06/30/2023 CLINICAL HISTORY: Left elbow pain TECHNIQUE: Frontal, lateral and oblique images of the left elbow are obtained. COMPARISON: None FINDINGS: Evaluation is suboptimal as patient unable to extend elbow due to underlying contracture a nd osseous structures are demineralized. There is no acute displaced fracture evident in the left elb ow. The overlying soft tissue appears unremarkable. IMPRESSION: As above.
[2023-06-30] MEDS: BUDESONIDE 0.5 MG/2 ML NEBU INHALATION SCH (08:10)
[2023-06-30] MEDS: ASPIRIN 81 MG PO SCH (08:58)
[2023-06-30] MEDS: APIXABAN 2.5 MG TABLET PO ONE (08:58)
[2023-06-30] MEDS: LEVOTHYROXINE 75 MCG TAB PO SCH (08:58)
[2023-06-30] MEDS: MIDODRINE 5 MG TAB PO SCH (08:59)
[2023-06-30] MEDS: PANTOPRAZOLE 40 MG/10 ML VIAL IV SCH (09:00)
[2023-06-30] MEDS: OXYBUTYNIN XL 5 MG TAB.ER.24 PO SCH (09:44)
[2023-06-30] MEDS: lamoTRIgine 25 MG TAB PO SCH (09:44)
[2023-06-30] MEDS: PHENYTOIN SODIUM EXTENDED 100 MG CAP PO SCH (09:44)
[2023-06-30] MEDS ORDERED: MORPHINE SULFATE 2 MG/ML SYRINGE IV PRN (11:45)
[2023-06-30 12:56] VITALS: BMI 17.7
--- NOTE | 2023-06-30 16:19 | US ---
EXAMINATION TYPE: US chest DATE OF EXAM: 06/30/2023 Exam done portable COMPARISON: NONE CLINICAL INDICATION: Male, 72 years old with history of pleural effusion; TECHNIQUE: Targeted ultrasound of the posterior lower EXAM MEASUREMENTS: Right Pleural Effusion pocket size: 11.6 cm Right skin surface to fluid distance: 3.2 cm Left Pleural Effusion pocket size: 8.0 cm Left skin surface to fluid distance: 2.0 cm Right side marked for possible thoracentesis outside the dept. Left side marked for possible thoracentesis outside the dept. Pulmonologists are able to review the images in the patient?s EMR. IMPRESSIONS: Bilateral pleural effusions marked for thoracentesis.
--- NOTE | 2023-06-30 16:53 | P.CNOR ---
History of Present Illness - [facility] Consult date: 06/30/23 Requesting physician: Ольга Billingsley Consult reason: other (right hip pain) History of present illness: History of Presenting Illness Patient is a pleasant 72-year-old male who presented to the ER due to abdominal pain. Patient is a poor historian, most information was provided from chart. Patient was admitted to [facility] emergency department physicians and is currently being evaluated. Our services were consulted due to finding on a CT scan of the abdomen and pelvis taken on 06/29/23 demonstrating destruction of the left hip joint with effusion concerning for septic arthritis. Patient resides at an adult foster care. He does have a past medical history of cognitive delay, left arm fracture with contracture, hypothyroidism, hyperlipidemia, seizure disorder. Patient seen and examined at bedside. Patient is resting comfortably in bed. Patient exhibits guarding of his abdomen and right rib area stating he is having pain. Abdomen is distended. Patient is difficult to understand due to speech impediment. Assisted patient with bed exercises of lower extremities, he was able to perform exercises without signs of pain. Asked patient if he was having any hip pain and he states "No". Patient does state that he has not been ambulatory. He denies any numbness or tingling into bilateral lower extremities. CT of the abdomen and Pelvis taken 06/29/23 has been compared to CT of the Pelvis taken on 11/05/20 and the skeletal structures show similar appearance in both exams. Review of Systems Pertinent positives and negatives as discussed in HPI, a complete review of systems was performed and all other systems are negative. Physical Examination Inspection: Negative for any open fractures, ecchymosis, significant erythema/ulcers. Sensation: Sensation is equal, symmetric, bilaterally intact throughout the upper and lower extremities Palpation: Nontender to palpation throughout bilateral upper and lower extremities and throughout spine exam Range of motion: Patient does have limited range of motion bilateral upper and lower extremities on exam due to generalized pain and stiffness Motor: 4/5 in all major motor groups in the bilateral upper and lower extremities Special tests: Negative Homans bilaterally. Negative Dov bilaterally. Negative clonus bilaterally. Neurovascular: Radial pulse intact, 2+ bilaterally. Cap refill under 3 seconds in digits upper extremities. Assessment and Plan Severe left hip osteoarthritis Multiple Complex comorbidities At this time we do not recommend any emergent/urgent orthopedic surgical intervention. CT of the abdomen and Pelvis taken 05/06/24 has been compared to CT of the Pelvis taken on 11/05/20 and the skeletal structures show similar appearance in both exams. Patient's current WBC is within normal limits, VSS, a nd afebrile. Recommend to obtain CRP and SED rate to rule out septic hip. Left Hip xrays have been ordered. Orthopedics will be available if needed throughout patients stay. Please do not hesitate to contact us for any further questions. 2. Appreciate medical management 3. Pain management -continue with conservative measures such as Tylenol, 4. GI prophylaxis - Per medicine 5. DVT prophylaxis -Eliquis 6. Appreciate consult I reviewed and discussed this case with my attending Dr. Zayas, whom has reviewed this chart and films and is in agreement with assessment and plan of c are as outlined above. I have personally seen and examined the patient, performed the documentation and the assessment and plan as written. Number of minutes spent on the visit: 30m. Past Medical History Past Medical History: Unable to Obtain, Seizure Disorder Additional Past Medical History / Comment(s): Mentally challenged. History of Any Multi-Drug Resistant Organisms: MRSA Year Discovered:: 10/05/20 MDRO Source:: MRSA BUTTOCK Additional Past Surgical History / Comment(s): Left arm broken; surgical repair. Shunt placed 1970. Past Anesthesia/Blood Transfusion Reactions: No Reported Reaction Past Psychological History: No Psychological Hx Reported Additional Psychological History / Comment(s): pt. mentally challenged. Smoking Status: Unknown if ever smoked Past Alcohol Use History: None Reported Past Drug Use History: None Reported - Past Family History family Family Medical History: Unable to Obtain Medications and Allergies Home Medications Medication Instructions Recorded Confirmed Type Aspirin EC [Ecotrin Low Dose] 81 mg PO DAILY@0700 10/05/20 06/29/23 History Atorvastatin [Lipitor] 10 mg PO HS 10/05/20 06/29/23 History Cyanocobalamin (Vitamin B-12) 1,000 mcg PO DAILY@0700 10/05/20 06/29/23 History [Vitamin B-12] Midodrine HCl [ProAmantine] 2.5 mg PO BID@0700,2100 10/05/20 06/29/23 History Phenytoin Sodium Extended 100 mg PO BID@0700,2100 10/05/20 06/29/23 History [Dilantin] QUEtiapine XR [SEROquel XR] 200 mg PO HS 10/05/20 06/29/23 History Sodium Chloride Tab 1 gm PO TID@0700,1700,209910/15/20 06/29/23 History Apixaban [Eliquis] 2.5 mg PO BID@0700,209906/29/23 06/29/23 History Ascorbic Acid [Vitamin C] 500 mg PO BID@0700,209906/29/23 06/29/23 History Benzonatate [Tessalon Perle] 200 mg PO TID PRN 06/29/23 06/29/23 History Budesonide [Pulmicort] 0.5 mg INHALATION RT-BID 06/29/23 06/29/23 History Cholecalciferol [Vitamin D3 (125 125 mcg PO DAILY@69906/29/23 06/29/23 History Mcg = 5000 Iu)] Ipratropium-Albuterol Nebulize 3 ml INHALATION RT-TID 06/29/23 06/29/23 History [Duoneb 0.5 mg-3 mg/3 ml Soln] L.acidoph,Paracasei, B.lactis 1 cap PO BID@0700,209906/29/23 06/29/23 History [Probiotic] Lactulose [Constulose] 20 gm PO BID@0700,17006/29/23 06/29/23 History Levothyroxine Sodium [Synthroid] 75 mcg PO DAILY@69906/29/23 06/29/23 History Magnesium Hydroxide [Milk of 2,400 mg PO ONCE PRN 06/29/23 06/29/23 History Magnesia] Meloxicam [Mobic] 7.5 mg PO DAILY@69906/29/23 06/29/23 History PARoxetine [Paxil] 20 mg PO HS 06/29/23 06/29/23 History QUEtiapine [SEROquel] 200 mg PO HS 06/29/23 06/29/23 History Sennosides/Docusate Sodium 2 tab PO BID@699,209906/29/23 06/29/23 History [Senna-S 8.6-50 mg Tablet] Tolterodine [Detrol] 2 mg PO BID@699,209906/29/23 06/29/23 History Zinc Gluconate [Zinc] 50 mg PO DAILY@69906/29/23 06/29/23 History lamoTRIgine [LaMICtal] 50 mg PO DAILY@69906/29/23 06/29/23 History Allergies Allergy/AdvReac Type Severity Reaction Status Date / Time No Known Allergies Allergy Verified 06/29/23 20:35 Results - Labs Labs: Abnormal Lab Results - Last 24 Hours (Table) 06/29/23 06/29/23 06/30/23 Range/Units 19:25 19:25 01:00 RBC 4.06 L (4.30-5.90) m/uL Hgb 12.3 L (13.0-17.5) gm/dL Hct 36.0 L (39.0-53.0) % Sodium 132 L (137-145) mmol/L Creatinine 0.44 L (0.66-1.25) mg/dL Glucose 100 H (74-99) mg/dL Alkaline Phosphatase 204 H (38-126) U/L Urine Protein Trace H (Negative) 06/30/23 06/30/23 Range/Units 04:45 04:45 RBC 3.76 L (4.30-5.90) m/uL Hgb 11.5 L (13.0-17.5) gm/dL Hct 34.1 L (39.0-53.0) % Sodium 132 L (137-145) mmol/L Creatinine 0.46 L (0.66-1.25) mg/dL Glucose (74-99) mg/dL Alkaline Phosphatase 218 H (38-126) U/L Urine Protein (Negative) H & H 06/29/23 06/30/23 Range/Units 19:25 04:45 Hgb 12.3 L 11.5 L (13.0-17.5) gm/dL Hct 36.0 L 34.1 L (39.0-53.0) % Result Diagrams: 06/30/23 04:45 06/30/23 04:45
--- NOTE | 2023-06-30 17:45 | XR ---
EXAMINATION TYPE: XR Hip Complete LT DATE OF EXAM: 06/30/2023 5:04 PM CLINICAL INDICATION:Male, 72 years old with history of Left hip pain; PH[facility] COMPARISON: None. TECHNIQUE: XR Hip Complete LT; hip was examined in the frontal and lateral projections and a AP pelvi s. FINDINGS: No evidence for acute process, joint dislocation or significant soft tissue swelling. Osteo phyte formation of the superior acetabulum of the hip. There is severe joint space narrowing with for mation of femoral head suggested. IMPRESSION: 1. No evidence for acute process. 2. Severe hip osteoarthrosis.
[2023-06-30] MEDS: ATORVASTATIN 10 MG TAB PO SCH (20:16)
[2023-06-30] MEDS: QUEtiapine 200 MG TAB PO SCH (20:16)
[2023-06-30] MEDS: APIXABAN 2.5 MG TABLET PO SCH (20:16)
--- NOTE | 2023-06-30 22:29 | P.CONS ---
History of Present Illness - Reason for Consult Consult date: 06/30/23 - History of Present Illness Patient is a 72-year-old male with a past medical history significant for mentally challenged seizure disorder patient has been brought to the hospital from the local [facility] home for evaluation abdominal discomfort, apparently the symptoms started the day of presentation to the hospital mostly diffuse discomfort no nausea no vomiting did have some constipation his last bowel movement was few days ago but no clear fever on presentation to the hospital patient did have a low-grade fever of 99.4 but no fever have been recorded subsequently patient was not tachycardic hypotensive or hypoxic no need for supplemental oxygen he did have a white count of 7.5 creatinine 0.44 liver enzymes are normal amylase lipase was normal UA has been negative influenza RSV COVID testing was negative patient did have a abdominal pelvis CT which was read as mild distention of the right hip joint with joint effusion possibility of septic joint should be considered that has prompted this infectious disease consultation it is very hard to get any clear history from this patient because of underlying mental status however per the nursing staff the caregiver did not mention any history of trauma or fall patient mostly bedridden currently do not have any sore to the right hip site or any swelling or redness Past Medical History Past Medical History: Unable to Obtain, Seizure Disorder Additional Past Medical History / Comment(s): Mentally challenged. History of Any Multi-Drug Resistant Organisms: MRSA Year Discovered:: 10/05/20 MDRO Source:: MRSA BUTTOCK Additional Past Surgical History / Comment(s): Left arm broken; surgical repair. Shunt placed 1970. Past Anesthesia/Blood Transfusion Reactions: No Reported Reaction Past Psychological History: No Psychological Hx Reported Additional Psychological History / Comment(s): pt. mentally challenged. Smoking Status: Unknown if ever smoked Past Alcohol Use History: None Reported Past Drug Use History: None Reported - Past Family History family Family Medical History: Unable to Obtain Medications and Allergies Home Medications Medication Instructions Recorded Confirmed Type Aspirin EC [Ecotrin Low Dose] 81 mg PO DAILY@0700 10/05/20 06/29/23 History Atorvastatin [Lipitor] 10 mg PO HS 10/05/20 06/29/23 History Cyanocobalamin (Vitamin B-12) 1,000 mcg PO DAILY@0700 10/05/20 06/29/23 History [Vitamin B-12] Midodrine HCl [ProAmantine] 2.5 mg PO BID@0700,209910/05/20 06/29/23 History Phenytoin Sodium Extended 100 mg PO BID@0700,209910/05/20 06/29/23 History [Dilantin] QUEtiapine XR [SEROquel XR] 200 mg PO HS 10/05/20 06/29/23 History Sodium Chloride Tab 1 gm PO TID@0700,1700,209910/15/20 06/29/23 History Apixaban [Eliquis] 2.5 mg PO BID@0700,209906/29/23 06/29/23 History Ascorbic Acid [Vitamin C] 500 mg PO BID@0700,209906/29/23 06/29/23 History Benzonatate [Tessalon Perle] 200 mg PO TID PRN 06/29/23 06/29/23 History Budesonide [Pulmicort] 0.5 mg INHALATION RT-BID 06/29/23 06/29/23 History Cholecalciferol [Vitamin D3 (125 125 mcg PO DAILY@69906/29/23 06/29/23 History Mcg = 5000 Iu)] Ipratropium-Albuterol Nebulize 3 ml INHALATION RT-TID 06/29/23 06/29/23 History [Duoneb 0.5 mg-3 mg/3 ml Soln] L.acidoph,Paracasei, B.lactis 1 cap PO BID@0700,209906/29/23 06/29/23 History [Probiotic] Lactulose [Constulose] 20 gm PO BID@0700,1700 06/29/23 06/29/23 History Levothyroxine Sodium [Synthroid] 75 mcg PO DAILY@69906/29/23 06/29/23 History Magnesium Hydroxide [Milk of 2,400 mg PO ONCE PRN 06/29/23 06/29/23 History Magnesia] Meloxicam [Mobic] 7.5 mg PO DAILY@69906/29/23 06/29/23 History PARoxetine [Paxil] 20 mg PO HS 06/29/23 06/29/23 History QUEtiapine [SEROquel] 200 mg PO HS 06/29/23 06/29/23 History Sennosides/Docusate Sodium 2 tab PO BID@0700,209906/29/23 06/29/23 History [Senna-S 8.6-50 mg Tablet] Tolterodine [Detrol] 2 mg PO BID@0700,2100 06/29/23 06/29/23 History Zinc Gluconate [Zinc] 50 mg PO DAILY@0700 06/29/23 06/29/23 History lamoTRIgine [LaMICtal] 50 mg PO DAILY@0700 06/29/23 06/29/23 History Allergies Allergy/AdvReac Type Severity Reaction Status Date / Time No Known Allergies Allergy Verified 06/29/23 20:35 Physical Exam Vitals: Vital Signs Temp Pulse Pulse Resp BP BP Pulse Ox 06/30/23 08:19 70 06/30/23 08:10 68 06/30/23 07:50 98.3 F 73 16 133/85 95 06/30/23 06:36 76 18 139/72 91 L 06/30/23 02:07 72 18 137/82 91 L 06/29/23 22:59 98.2 F 84 20 133/55 92 L 06/29/23 18:58 99.4 F 76 20 148/78 95 Intake and Output 06/29/23 06/30/23 06/30/23 22:59 06:59 14:59 Output Total 400 Balance -400 Output: Urine 400 Straight 400 Other: Voiding Method Diaper Incontinent Weight 54.431 kg 54.431 kg Results CBC & Chem 7: 06/30/23 04:45 06/30/23 04:45 Labs: Abnormal Lab Results - Last 24 Hours (Table) 06/29/23 06/29/23 06/30/23 Range/Units 19:25 19:25 01:00 RBC 4.06 L (4.30-5.90) m/uL Hgb 12.3 L (13.0-17.5) gm/dL Hct 36.0 L (39.0-53.0) % Sodium 132 L (137-145) mmol/L Creatinine 0.44 L (0.66-1.25) mg/dL Glucose 100 H (74-99) mg/dL Alkaline Phosphatase 204 H (38-126) U/L Urine Protein Trace H (Negative) 06/30/23 06/30/23 Range/Units 04:45 04:45 RBC 3.76 L (4.30-5.90) m/uL Hgb 11.5 L (13.0-17.5) gm/dL Hct 34.1 L (39.0-53.0) % Sodium 132 L (137-145) mmol/L Creatinine 0.46 L (0.66-1.25) mg/dL Glucose (74-99) mg/dL Alkaline Phosphatase 218 H (38-126) U/L Urine Protein (Negative) Assessment and Plan Plan: 1patient with the significant abnormality to the right hip described on the CT abdominal pelvis however clinically patient is not behaving as septic arthritis in this patient with no fever no white count currently he did not have any tenderness swelling redness or any wound to the right hip site 2-we will review the CT with the radiologist to see if the area is visible to aspiration 3-check inflammatory markers 4-we will hold on adding any empiric antibiotic therapy at this point as clinical suspicion is low for septic arthritis We will follow on clinical condition and cultures to further adjust medication if needed Thank you for this consultation we will follow the patient along with you Dictation was produced using [employer] dictation software. please excuse any grammatical, word or spelling errors. Time with Patient: Greater than 30
[2023-07-01] MEDS: ACETAMINOPHEN TAB 325 MG TAB PO PRN (08:24)
--- NOTE | 2023-07-01 09:33 | P.PN ---
Progress Note - Text Progress Note Date: 07/01/23 X-rays of the left hip taken on 06/30/2023 have been reviewed. Imaging demonstrates no evidence for acute process and severe hip osteoarthrosis. At this time we do not recommend any emergent/urgent orthopedic surgical intervention. Patient may follow-up with Orthopedics as needed. Orthopedics is signing off at this time. Please do not hesitate to contact us for any further questions. Appreciate consult.
--- NOTE | 2023-07-01 11:09 | XR ---
EXAMINATION TYPE: XR chest 1V portable DATE OF EXAM: 07/01/2023 Comparison: None Clinical History: 72-year-old male pleural effusion, sob Findings: Heart upper limits of normal in size. Calcified lymph nodes AP window and both jethro. Mild interstitia l density. Small bilateral pleural effusions are noted. Right CVC noted to the right atrium. Impression: Interstitial densities and small bilateral pleural effusions. Possible sequela of mild CHF.
--- NOTE | 2023-07-01 11:29 | P.PN ---
Subjective Progress Note Date: 07/01/23 72-year-old male with a PMH of cognitive delay, left arm fracture with contracture, hypothyroidism, hyperlipidemia, seizure disorder, resident of [facility], who was brought to the hospital via EMS due to complaints of abdominal and right arm pain. The patient is difficult to understand due to a speech impediment. He does report that he has been experiencing right arm and elbow pain over the past several days. He also reports of intermittent abdominal pain over the past several weeks with episodes of diarrhea. He denied experiencing chest discomfort, shortness of breath, fever, chills, cough, nausea, vomiting. CT abdomen and pelvis in the emergency room revealed bilateral pleural effusions with destruction of the right hip joint with effusion concerning for septic arthritis. Laboratory evaluation was remarkable for hemoglobin 12.3, sodium 132, WBC count 7.5, BUN 15, creatinine 0.44, with unremarkable UA and negative viral respiratory panel with lactic acid 0.7. Patient was admitted for Orthopedic Sx evaluation. Ortho recommended conservative management without surgical intervention. ID consulted, low probability for septic arthritis, obtain inflammatory markers, hold empiric antibiotics. 06/30 Patient was seen and examined. Chest US obtained for moderate pleural effusion. Pulmonary consulted, started on Lasix IV and Echo ordered. ESR 15. CRP 8.2. Hip XR shows no acute process, severe OA. General: non toxic, no distress, appears at stated age Derm: warm, dry Head: atraumatic, normocephalic, symmetric Eyes: EOMI, no lid lag, anicteric sclera Mouth: no lip lesion, mucus membranes moist Cardiovascular: S1S2 reg, no murmur, positive posterior tibial pulse bilateral, Lungs: Decreased BS bilateral, no rhonchi, no rales , no accessory muscle use Abdominal: soft, nontender to palpation, no guarding, no appreciable organomegaly Ext: no gross muscle atrophy, no edema, no contractures Neuro: no focal neuro deficits Psych: Alert, oriented, appropriate affect Moderate pleural effusion: Chest US obtained. Pulmonary consulted, Lasix 20 mg IV ordered along with Echo. Currently 96% on RA. Right hip abnormal imaging: Orthopedic Sx recommends no intervention. ESR negative. CRP elevated. Low suspicion for septic arthritis. ID on board. Right arm pain: Elbow XR no fracture. Hyponatremia: Mild. Asymptomatic. Normocytic anemia: Appears at baseline. No signs of active bleeding. Chronic conditions: Cognitive delay, left arm fracture with contracture, hypothyroidism, hyperlipidemia, seizure disorder CODE STATUS: FULL CODE. DVT Prophylaxis: Eliquis GI Prophylaxis: Protonix Designated medical POA if patient is not able to make medical decisions for themselves: I have reviewed the following senior erp consultant notes: ID, Orthopedic. I have reviewed the results of the following tests: Chest US. ESR. CRP. Hip XR I have ordered the following tests: BMP while on Lasix IV. I have discussed the care of this patient with the following independent historian: I have independently interpreted the following test below: I have discussed the management of this patient with the following physician: Objective - Vital Signs Vital signs: Vital Signs Temp 98.4 F 07/01/23 01:50 Pulse 64 07/01/23 01:50 Resp 18 07/01/23 01:50 BP 130/81 07/01/23 01:50 Pulse Ox 96 07/01/23 01:50 FiO2 Intake & Output 06/30/23 07/01/23 07/01/23 18:59 06:59 18:59 Output Total 1850 Balance -1850 Weight 54.431 kg Output: Urine 1850 Other: Voiding Method Diaper Diaper Incontinent Incontinent External Catheter # Voids 1 # Bowel Movements 0 - Labs CBC & Chem 7: 06/30/23 04:45 06/30/23 04:45 Labs: Abnormal Lab Results - Last 24 Hours (Table) 06/30/23 Range/Units 04:45 C-Reactive Protein 8.20 H (0.00-0.80) mg/dL
[2023-07-01] MEDS: FUROSEMIDE 10 MG/ML 2 ML VIAL IV SCH (11:40)
--- NOTE | 2023-07-01 11:48 | P.CNPUL ---
History of Present Illness Consult date: 07/01/23 Requesting physician: Lanny Soler Reason for consult: pleural effusion, abnormal CXR/CT Chief complaint: Abdominal pain History of present illness: This is a pleasant 72-year-old male patient who resides in an adult foster care setting and has a history of being developmentally delayed, seizure disorder, chronic hyponatremia, MRSA of the buttock. He was brought into the emergency room on 06/29/2023 with complaints of abdominal pain. CT scan of the abdomen pelvis revealed moderate bilateral pleural effusions and bibasilar infiltrates/atelectasis. Marked reduction of the left hip with joint effusion. White count 6.1. Hemoglobin 11.5. Platelets 205. Sodium 132. Potassium 4.3. Bicarb 24. BUN 12. Creatinine 0.46. Viral screen negative. Urinalysis clean. Ultrasound of the chest revealed a moderate right-sided pleural effusion measuring 11.6 cm and a left pleural effusion measuring 8.0 cm. We were consulted for the same. He is seen today on the regular medical floor. He is awake and alert in no acute distress. He is maintaining good O2 saturations in the 90s on room air. Today's chest x-ray reveals interstitial densities and small bilateral pleural effusions. Review of Systems ROS unobtainable: due to mental status Past Medical History Past Medical History: Unable to Obtain, Seizure Disorder Additional Past Medical History / Comment(s): Mentally challenged. History of Any Multi-Drug Resistant Organisms: MRSA Date of last positivie culture/infection: 10/05/20 MDRO Source:: MRSA BUTTOCK Additional Past Surgical History / Comment(s): Left arm broken; surgical repair. Shunt placed 1970. Past Anesthesia/Blood Transfusion Reactions: No Reported Reaction Past Psychological History: No Psychological Hx Reported Additional Psychological History / Comment(s): pt. mentally challenged. Smoking Status: Unknown if ever smoked Past Alcohol Use History: None Reported Past Drug Use History: None Reported - Past Family History family Family Medical History: Unable to Obtain Medications and Allergies Home Medications Medication Instructions Recorded Confirmed Type Aspirin EC [Ecotrin Low Dose] 81 mg PO DAILY@0700 10/05/20 06/29/23 History Atorvastatin [Lipitor] 10 mg PO HS 10/05/20 06/29/23 History Cyanocobalamin (Vitamin B-12) 1,000 mcg PO DAILY@0700 10/05/20 06/29/23 History [Vitamin B-12] Midodrine HCl [ProAmantine] 2.5 mg PO BID@0700,209910/05/20 06/29/23 History Phenytoin Sodium Extended 100 mg PO BID@0700,209910/05/20 06/29/23 History [Dilantin] QUEtiapine XR [SEROquel XR] 200 mg PO HS 10/05/20 06/29/23 History Sodium Chloride Tab 1 gm PO TID@0700,1700,209910/15/20 06/29/23 History Apixaban [Eliquis] 2.5 mg PO BID@0700,209906/29/23 06/29/23 History Ascorbic Acid [Vitamin C] 500 mg PO BID@0700,209906/29/23 06/29/23 History Benzonatate [Tessalon Perle] 200 mg PO TID PRN 06/29/23 06/29/23 History Budesonide [Pulmicort] 0.5 mg INHALATION RT-BID 06/29/23 06/29/23 History Cholecalciferol [Vitamin D3 (125 125 mcg PO DAILY@69906/29/23 06/29/23 History Mcg = 5000 Iu)] Ipratropium-Albuterol Nebulize 3 ml INHALATION RT-TID 06/29/23 06/29/23 History [Duoneb 0.5 mg-3 mg/3 ml Soln] L.acidoph,Paracasei, B.lactis 1 cap PO BID@0700,209906/29/23 06/29/23 History [Probiotic] Lactulose [Constulose] 20 gm PO BID@0700,1700 06/29/23 06/29/23 History Levothyroxine Sodium [Synthroid] 75 mcg PO DAILY@69906/29/23 06/29/23 History Magnesium Hydroxide [Milk of 2,400 mg PO ONCE PRN 06/29/23 06/29/23 History Magnesia] Meloxicam [Mobic] 7.5 mg PO DAILY@0700 06/29/23 06/29/23 History PARoxetine [Paxil] 20 mg PO HS 06/29/23 06/29/23 History QUEtiapine [SEROquel] 200 mg PO HS 06/29/23 06/29/23 History Sennosides/Docusate Sodium 2 tab PO BID@0700,209906/29/23 06/29/23 History [Senna-S 8.6-50 mg Tablet] Tolterodine [Detrol] 2 mg PO BID@0700,209906/29/23 06/29/23 History Zinc Gluconate [Zinc] 50 mg PO DAILY@69906/29/23 06/29/23 History lamoTRIgine [LaMICtal] 50 mg PO DAILY@69906/29/23 06/29/23 History Allergies Allergy/AdvReac Type Severity Reaction Status Date / Time No Known Allergies Allergy Verified 06/29/23 20:35 Physical Exam Vitals: Vital Signs Temp Pulse Pulse Resp BP BP Pulse Ox 07/01/23 08:23 70 07/01/23 08:14 72 07/01/23 07:00 98.2 F 77 18 151/80 93 L 07/01/23 01:50 98.4 F 64 18 130/81 96 06/30/23 19:33 98.5 F 63 18 146/71 94 L 06/30/23 18:47 68 06/30/23 18:37 64 06/30/23 13:32 98.3 F 67 16 144/72 95 Intake and Output 06/30/23 07/01/23 07/01/23 22:59 06:59 14:59 Intake Total 240 Output Total 1850 Balance -1850 240 Intake: Oral 240 Output: Urine 1850 Other: Voiding Method Diaper Diaper Diaper Incontinent Incontinent Incontinent External Catheter External Catheter External Catheter # Bowel Movements 0 GENERAL EXAM: Alert, pleasant, developmentally delayed 72-year-old male, on room air, comfortable in no apparent distress. HEAD: Normocephalic. EYES: Normal reaction of pupils, equal size. NOSE: Clear with pink turbinates. THROAT: No erythema or exudates. NECK: No masses, no JVD. CHEST: No chest wall deformity. LUNGS: Equal air entry with bibasilar crackles right greater than left. CVS: S1 and S2 normal with no audible murmur, regular rhythm. ABDOMEN: No hepatosplenomegaly, normal bowel sounds, no guarding or rigidity. SPINE: No scoliosis or deformity SKIN: No rashes CENTRAL NERVOUS SYSTEM: No focal deficits, tone is normal in all 4 extremities. EXTREMITIES: Limited range of motion of the upper and lower extremities. There is no peripheral edema. Peripheral pulses are intact. Results - Laboratory Findings CBC and BMP: 06/30/23 04:45 06/30/23 04:45 Abnormal lab findings: Abnormal Labs 06/29/23 06/29/23 06/30/23 19:25 19:25 01:00 RBC 4.06 L Hgb 12.3 L Hct 36.0 L Sodium 132 L Creatinine 0.44 L Glucose 100 H Alkaline Phosphatase 204 H C-Reactive Protein Urine Protein Trace H 06/30/23 06/30/23 06/30/23 04:45 04:45 04:45 RBC 3.76 L Hgb 11.5 L Hct 34.1 L Sodium 132 L Creatinine 0.46 L Glucose Alkaline Phosphatase 218 H C-Reactive Protein 8.20 H Urine Protein - Diagnostic Findings Chest x-ray: image reviewed Assessment and Plan Assessment: Abdominal pain of unclear etiology. Right inguinal hernia containing fluid noted on CT, no bowel obstruction Bilateral pleural effusions right greater than left Developmentally delayed and resides in a adult foster care setting Hypothyroidism Hyperlipidemia Gastroesophageal reflux disease History of seizure disorder Plan: The patient was seen and evaluated Ultrasound of the chest, CT scan, chest x-ray, labs and medications reviewed The patient is currently stable and on room air without pulmonary complaints Add Lasix 20 mg IV every 12 hours Obtain an echocardiogram Follow-up chest x-ray in a.m. No plans for thoracentesis at this time We will continue to follow and make further recommendations based on his clinical status I have personally seen and examined the patient, performed the documentation and the assessment and plan as written. Number of minutes spent on the visit: 20.
[2023-07-02 07:43] LABS: African American GFR (CKD) >90 (>60 ml/min/1.73 sqM); Anion Gap 6 mmol/L; Blood Urea Nitrogen 18 mg/dL (9-20); Calcium 8.8 mg/dL (8.4-10.2); Carbon Dioxide 25 mmol/L (22-30); Chloride 98 mmol/L (98-107); Glucose 105 mg/dL (74-99); Non-African American GFR(CKD) >90 (>60 ml/min/1.73 sqM); Potassium 3.4 mmol/L (3.5-5.1); Sodium 129 mmol/L (137-145)
--- NOTE | 2023-07-02 10:03 | XR ---
EXAMINATION TYPE: XR chest 1V portable DATE OF EXAM: 07/02/2023 8:37 AM CLINICAL INDICATION:Male, 72 years old with history of CHF; COMPARISON: Chest radiographs from 07/01/2023. TECHNIQUE: XR chest 1V portable Frontal view of the chest. FINDINGS: Lungs/Pleura: No evidence of focal consolidation or pneumothorax. Blunting of the costophrenic angles is present. Pulmonary vascularity: Pulmonary vascular congestion. Heart/mediastinum: Cardiomediastinal silhouette is enlarged and stable. Musculoskeletal: No acute osseous pathology. IMPRESSION: Cardiomegaly, pulmonary vascular congestion and bilateral pleural effusions. Correlate with BNP for c ongestive heart failure.
--- NOTE | 2023-07-02 12:25 | P.PN ---
Subjective Progress Note Date: 07/02/23 This is a pleasant 72-year-old male patient who resides in an adult foster care setting and has a history of being developmentally delayed, seizure disorder, chronic hyponatremia, MRSA of the buttock. He was brought into the emergency room on 06/29/2023 with complaints of abdominal pain. CT scan of the abdomen pelvis revealed moderate bilateral pleural effusions and bibasilar infiltrates/atelectasis. Marked reduction of the left hip with joint effusion. White count 6.1. Hemoglobin 11.5. Platelets 205. Sodium 132. Potassium 4.3. Bicarb 24. BUN 12. Creatinine 0.46. Viral screen negative. Urinalysis clean. Ultrasound of the chest revealed a moderate right-sided pleural effusion measuring 11.6 cm and a left pleural effusion measuring 8.0 cm. We were consulted for the same. He is seen today on the regular medical floor. He is awake and alert in no acute distress. He is maintaining good O2 saturations in the 90s on room air. Today's chest x-ray reveals interstitial densities and sm all bilateral pleural effusions. The patient is seen today July 02, 2023 in follow-up on the regular medical floor. He is currently resting comfortably in bed. Awake and alert in no acute distress. Maintaining O2 saturations in the 90s on room air. He is afebrile. Hemodynamically stable. Chest x-ray continues to show some fluid volume overload. Blood cultures revealed no growth. Sodium 129. Potassium 3.4. Bicarb 25. BUN 18. Creatinine 0.49. Glucose 105. He remains on Lasix 20 mg IV every 12 hours. Continued on Pulmicort inhalations. Anticoagulated with Eliquis. He is currently in a -900 mL balance. Objective - Vital Signs Vital signs: Vital Signs Temp 98.2 F 07/02/23 07:00 Pulse 72 07/02/23 09:18 Resp 15 07/02/23 07:00 BP 134/70 07/02/23 07:00 Pulse Ox 95 07/02/23 07:00 FiO2 Intake & Output 07/01/23 07/02/23 07/02/23 18:59 06:59 18:59 Intake Total 461 Output Total 900 500 Balance -439 -500 Intake: Oral 461 Output: Urine 900 500 Other: Voiding Method Diaper Diaper Diaper Incontinent Incontinent Incontinent External Catheter External Catheter External Catheter - Exam GENERAL EXAM: Alert, developmentally delayed 72-year-old male, on room air, in no apparent distress. HEAD: Normocephalic. EYES: Normal reaction of pupils, equal size. NOSE: Clear with pink turbinates. THROAT: No erythema or exudates. NECK: No masses, no JVD. CHEST: No chest wall deformity. LUNGS: Equal air entry with bibasilar crackles right greater than left. CVS: S1 and S2 normal with no audible murmur, regular rhythm. ABDOMEN: No hepatosplenomegaly, normal bowel sounds, no guarding or rigidity. SPINE: No scoliosis or deformity SKIN: No rashes CENTRAL NERVOUS SYSTEM: No focal deficits, tone is normal in all 4 extremities. EXTREMITIES: Limited range of motion of the upper and lower extremities. There is no peripheral edema. Peripheral pulses are intact. - Labs CBC & Chem 7: 06/30/23 04:45 07/02/23 06:51 Labs: Abnormal Lab Results - Last 24 Hours (Table) 07/02/23 Range/Units 06:51 Sodium 129 L (137-145) mmol/L Potassium 3.4 L (3.5-5.1) mmol/L Creatinine 0.49 L (0.66-1.25) mg/dL Glucose 105 H (74-99) mg/dL Microbiology - Last 24 Hours (Table) 06/30/23 01:00 Blood Culture - Preliminary Blood 06/30/23 00:41 Blood Culture - Preliminary Blood Assessment and Plan Assessment: Abdominal pain of unclear etiology. Right inguinal hernia containing fluid noted on CT, no bowel obstruction Bilateral pleural effusions right greater than left, echocardiogram still pending Developmentally delayed and resides in a adult foster care setting Hypothyroidism Hyperlipidemia Gastroesophageal reflux disease History of seizure disorder Plan: The patient was seen and evaluated Chest x-ray, labs and medications reviewed Echocardiogram still pending Check a BNP Continue Lasix 20 mg IV every 12 hours Remains stable and on room air We will continue to follow I have personally seen and examined the patient, performed the documentation and the assessment and plan as written. Number of minutes spent on the visit: 10.
--- NOTE | 2023-07-02 14:31 | P.PN ---
Subjective Progress Note Date: 07/01/23 Principal diagnosis: Reason for follow-up is abnormal CT right hip concerning for septic arthritis Patient is a 72-year-old male with a past medical history significant for mentally challenged seizure disorder patient has been brought to the hospital from the local [facility] home for evaluation abdominal discomfort, patient did have a CT abdominal pelvis concerning for right hip joint effusion and suspicious for septic arthritis prompting this consultation. On today's evaluation that is 07/01/2023 patient remains to be afebrile, the patient is breathing comfortably on room air does not seem to be any distress no vomiting diarrhea and the changes reported by nursing staff patient himself cannot provide reliable history. No CBC was done today his white count normal as of yesterday patient did have a ESR of 15 CRP is 8.20, patient did have a left hip x-ray did not show any dramality however the CT did shows abnormality on the right hip Objective - Vital Signs Vital signs: Vital Signs Temp 97.7 F 07/01/23 15:00 Pulse 68 07/01/23 15:00 Resp 18 07/01/23 15:00 BP 148/67 07/01/23 15:00 Pulse Ox 96 07/01/23 15:00 FiO2 Intake & Output 06/30/23 07/01/23 07/01/23 18:59 06:59 18:59 Intake Total 240 Output Total 1850 900 Balance -1850 -660 Weight 54.431 kg Intake: Oral 240 Output: Urine 1850 900 Other: Voiding Method Diaper Diaper Diaper Incontinent Incontinent Incontinent External Catheter External Catheter # Voids 1 # Bowel Movements 0 - Exam GENERAL DESCRIPTION: An elderly male lying in bed in no distress RESPIRATORY SYSTEM: Unlabored breathing , decreased breath sounds at bases HEART: S1 S2 regular rate and rhythm , ABDOMEN: Soft , no tenderness EXTREMITIES: No edema feet - Labs CBC & Chem 7: 06/30/23 04:45 07/02/23 06:51 Labs: Abnormal Lab Results - Last 24 Hours (Table) 06/30/23 Range/Units 04:45 C-Reactive Protein 8.20 H (0.00-0.80) mg/dL Microbiology - Last 24 Hours (Table) 06/30/23 01:00 Blood Culture - Preliminary Blood 06/30/23 00:41 Blood Culture - Preliminary Blood Assessment and Plan (1) Abnormal CT of the abdomen Current Visit: Yes Status: Acute Code(s): R93.5 - ABN FINDINGS ON DX IMAGING OF ABD REGIONS, INC RETROPERITON SNOMED Code(s): 05675045885982442 Plan: 1patient with the significant abnormality to the right hip described on the CT abdominal pelvis however clinically patient is not behaving as septic arthritis in this patient with no fever no white count currently he did not have any tenderness swelling redness or any wound to the right hip site 2-CT report has been corrected by radiology mentioning severe arthritis clinical not behaving as septic arthritis patient did have normal ESR CRP is mildly elevated 3-orthopedics has evaluated left hip however CT reported right hip abnormality recommend obtaining a x-ray of the right hip Dictation was produced using [employer] dictation software. please excuse any grammatical, word or spelling errors. Time with Patient: Less than 30
--- NOTE | 2023-07-02 14:32 | P.PN ---
Subjective Progress Note Date: 07/02/23 Principal diagnosis: Reason for follow-up is abnormal CT right hip concerning for septic arthritis Patient is a 72-year-old male with a past medical history significant for mentally challenged seizure disorder patient has been brought to the hospital from the local [facility] home for evaluation abdominal discomfort, patient did have a CT abdominal pelvis concerning for right hip joint effusion and suspicious for septic arthritis prompting this consultation. On today's evaluation that is 07/02/2023 the patient continues to be febrile patient is breathing comfortably currently on room air normal denies any changes reported by nursing staff patient himself cannot provide reliable history Patient did have a creatinine 0.49 no CBC was done today blood culture has been negative chest x-ray pulmonary vascular congestion cardiomegaly Objective - Vital Signs Vital signs: Vital Signs Temp 98.2 F 07/02/23 07:00 Pulse 72 07/02/23 09:18 Resp 15 07/02/23 07:00 BP 134/70 07/02/23 07:00 Pulse Ox 95 07/02/23 07:00 FiO2 Intake & Output 07/01/23 07/02/23 07/02/23 18:59 06:59 18:59 Intake Total 461 118 Output Total 900 500 450 Balance -439 -500 -332 Weight 54.431 kg Intake: Oral 461 118 Output: Urine 900 500 450 Other: Voiding Method Diaper Diaper Diaper Incontinent Incontinent Incontinent External Catheter External Catheter External Catheter - Exam GENERAL DESCRIPTION: An elderly male lying in bed in no distress RESPIRATORY SYSTEM: Unlabored breathing , decreased breath sounds at bases HEART: S1 S2 regular rate and rhythm , ABDOMEN: Soft , no tenderness EXTREMITIES: No edema feet - Labs CBC & Chem 7: 06/30/23 04:45 07/02/23 06:51 Labs: Abnormal Lab Results - Last 24 Hours (Table) 07/02/23 Range/Units 06:51 Sodium 129 L (137-145) mmol/L Potassium 3.4 L (3.5-5.1) mmol/L Creatinine 0.49 L (0.66-1.25) mg/dL Glucose 105 H (74-99) mg/dL Microbiology - Last 24 Hours (Table) 06/30/23 01:00 Blood Culture - Preliminary Blood 06/30/23 00:41 Blood Culture - Preliminary Blood Assessment and Plan (1) Abnormal CT of the abdomen Current Visit: Yes Status: Acute Code(s): R93.5 - ABN FINDINGS ON DX IMAGING OF ABD REGIONS, INC RETROPERITON SNOMED Code(s): 11371778361114642 (2) Hip pain Current Visit: Yes Status: Acute Code(s): M25.559 - PAIN IN UNSPECIFIED HIP SNOMED Code(s): 86563004 Plan: 1patient with the significant abnormality to the right hip described on the CT abdominal pelvis however clinically patient is not behaving as septic arthritis in this patient with no fever no white count currently he did not have any tenderness swelling redness or any wound to the right hip site 2-CT report has been corrected by radiology mentioning severe arthritis clinical not behaving as septic arthritis patient did have normal ESR CRP is mildly elevated 3-check x-ray of the right hip for comparison no need for systemic chemotherapy at this point Dictation was produced using [employer] dictation software. please excuse any grammatical, word or spelling errors. Time with Patient: Less than 30
--- NOTE | 2023-07-02 16:46 | XR ---
Right hip. HISTORY: Pain. COMPARISON: None. TECHNIQUE: 2 views of the right hip were obtained. FINDINGS: There is diffuse osteopenia. There is no fracture, dislocation or focal intraosseous abnormality. The joint space is well-maintain ed. There are no soft tissue abnormality. IMPRESSION: Diffuse osteopenia with no other significant abnormality seen..
--- NOTE | 2023-07-02 20:47 | P.PN ---
Progress Note - Text Progress Note Date: 07/02/23 Hospital course: 72-year-old male with a PMH of cognitive delay, left arm fracture with contract ure, hypothyroidism, hyperlipidemia, seizure disorder, resident of [facility], who was brought to the hospital via EMS due to complaints of abdominal and right arm pain. The patient is difficult to understand due to a speech impediment. He does report that he has been experiencing right arm and elbow pain over the past several days. He also reports of intermittent abdominal pain over the past several weeks with episodes of diarrhea. He denied experiencing chest discomfort, shortness of breath, fever, chills, cough, nausea, vomiting. CT abdomen and pelvis in the emergency room revealed bilateral pleural effusions with destruction of the right hip joint with effusion concerning for septic arthritis. Laboratory evaluation was remarkable for hemoglobin 12.3, sodium 132, WBC count 7.5, BUN 15, creatinine 0.44, with unremarkable UA and negative viral respiratory panel with lactic acid 0.7. Patient was admitted for Orthopedic Sx evaluation. Ortho recommended conservative management without surgical intervention. ID consulted, low probability for septic arthritis, obtain inflammatory markers, hold empiric antibiotics. 06/30 Patient was seen and examined. Chest US obtained for moderate pleural effusion. Pulmonary consulted, started on Lasix IV and Echo ordered. ESR 15. CRP 8.2. Hip XR shows no acute process, severe OA. July 01: Resting in bed. Did tolerate his breakfast. On IV Lasix. And negative fluid balance. Eating some. Spoke to nurse to get the patient up in a chair. Active Medications Acetaminophen (Acetaminophen Tab 325 Mg Tab) 650 mg PO Q6HR PRN PRN Reason: Mild Pain or Fever > 100.5 Last Admin: 07/02/23 20:21 Dose: 650 mg Apixaban (Apixaban 2.5 Mg Tablet) 2.5 mg PO BID@0700,2100 [facility]; Protocol Last Admin: 07/02/23 20:21 Dose: 2.5 mg Aspirin (Aspirin 81 Mg) 81 mg PO DAILY@0700 [facility] Last Admin: 07/02/23 06:14 Dose: 81 mg Atorvastatin Calcium (Atorvastatin 10 Mg Tab) 10 mg PO HS [facility] Last Admin: 07/02/23 20:21 Dose: 10 mg Budesonide (Budesonide 0.5 Mg/2 Ml Nebu) 0.5 mg INHALATION RT-BID [facility] Last Admin: 07/02/23 20:11 Dose: 0.5 mg Furosemide (Furosemide 10 Mg/Ml 2 Ml Vial) 20 mg IV Q12HR [facility] Last Admin: 07/02/23 20:21 Dose: 20 mg Lamotrigine (Lamotrigine 25 Mg Tab) 50 mg PO DAILY@0700 [facility] Last Admin: 07/02/23 06:14 Dose: 50 mg Levothyroxine Sodium (Levothyroxine 75 Mcg Tab) 75 mcg PO DAILY@0700 [facility] Last Admin: 07/02/23 06:15 Dose: 75 mcg Midodrine (Midodrine 5 Mg Tab) 2.5 mg PO BID@0700,2100 [facility] Last Admin: 07/02/23 20:20 Dose: 2.5 mg Morphine Sulfate (Morphine Sulfate 2 Mg/Ml Syringe) 2 mg IV Q4HR PRN PRN Reason: Severe Pain (Scale 7 to 10) Naloxone HCl (Naloxone 0.4 Mg/Ml 1 Ml Vial) 0.2 mg IV Q2M PRN PRN Reason: Opioid Reversal Oxybutynin Chloride (Oxybutynin Xl 5 Mg Tab.Er.24) 10 mg PO DAILY@0700 [facility] Last Admin: 07/02/23 06:14 Dose: 10 mg Pantoprazole Sodium (Pantoprazole 40 Mg/10 Ml Vial) 40 mg IV DAILY [facility] Last Admin: 07/02/23 08:40 Dose: 40 mg Phenytoin Sodium (Phenytoin Sodium Extended 100 Mg Cap) 100 mg PO BID@0700,2100 [facility] Last Admin: 07/02/23 20:20 Dose: 100 mg Quetiapine Fumarate (Quetiapine 200 Mg Tab) 200 mg PO HS [facility] Last Admin: 07/02/23 20:20 Dose: 200 mg Physical examination: VITAL SIGNS: 98.2, 71, 15, 134 x 70, 95% room air GENERAL: Laying in bed comfortable EYES: Pupils equal. Conjunctiva normal.. NECK: JVD not raised; masses not palpable. HEART: First and second heart sounds are normal; no edema. LUNGS: Respiratory rate normal; creased breath sounds. ABDOMEN: Soft, nontender, liver spleen not palpable, no masses palpable. PSYCH: Patient is able to answer questions simple. MUSCULAR skeletal: Limited range of motion left arm. Painful movements right hip. Eft elbow contracture. NEUROLOGICAL: Slow speech. A bit slurred INVESTIGATIONS, reviewed in the clinical context: June 29: White count 6.1 hemoglobin 9.5 platelets 204 sodium 129 potassium 3.4 BUN 18 creatinine 0.49 CRP 8.20 proBNP 337 UA: Trace protein Serum osmolality 264 CT abdomen pelvis [June 28]: Moderate bilateral pleural effusions and bibasilar infiltrate. Mild destruction of the right hip joint with joint effusion. Left elbow: Osseous structures are demineralized. Assessment and plan: -Bilateral pleural effusion secondary to CHF: Uncontrolled Being followed by pulmonary. 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 [facility] guardianship office is petitioning for guardianship. -Hyperlipidemia Lipitor 10 mg -Severe right hip osteoarthritis Seen by Dr. Zayas. No further intervention currently. K-pad -Chronic left arm contracture -Hypothyroid Synthroid 75 g daily -Normocytic anemia Check B12, folate, ferritin, iron, TIBC -Anxiety, depression not otherwise specified Paxil 20 mg nightly, Seroquel 2 mg nightly, Seroquel XR 20 mg nightly, -Chronic hyponatremia, hypoosmolar Cut back free fluid-fluid restriction 1500 cc. -Full code Check iron studies B12 folate. Continue IV Lasix. Fluid restriction. 2D echo.
[2023-07-03 08:18] LABS: African American GFR (CKD) >90 (>60 ml/min/1.73 sqM); Anion Gap 8 mmol/L; Blood Urea Nitrogen 20 mg/dL (9-20); Calcium 9.1 mg/dL (8.4-10.2); Carbon Dioxide 26 mmol/L (22-30); Chloride 96 mmol/L (98-107); Glucose 94 mg/dL (74-99); Non-African American GFR(CKD) >90 (>60 ml/min/1.73 sqM); Potassium 3.9 mmol/L (3.5-5.1); Sodium 130 mmol/L (137-145)
[2023-07-03] MEDS: FUROSEMIDE 10 MG/ML 2 ML VIAL IV SCH (09:30)
[2023-07-03 11:21] LABS: % Iron Saturation 19.72 (15.00-50.00)
--- NOTE | 2023-07-03 12:25 | P.PN ---
Subjective Progress Note Date: 07/03/23 This is a pleasant 72-year-old male patient who resides in an adult foster care setting and has a history of being developmentally delayed, seizure disorder, chronic hyponatremia, MRSA of the buttock. He was brought into the emergency room on 06/29/2023 with complaints of abdominal pain. CT scan of the abdomen pelvis revealed moderate bilateral pleural effusions and bibasilar infiltrates/atelectasis. Marked reduction of the left hip with joint effusion. White count 6.1. Hemoglobin 11.5. Platelets 205. Sodium 132. Potassium 4.3. Bicarb 24. BUN 12. Creatinine 0.46. Viral screen negative. Urinalysis clean. Ultrasound of the chest revealed a moderate right-sided pleural effusion measuring 11.6 cm and a left pleural effusion measuring 8.0 cm. We were consulted for the same. He is seen today on the regular medical floor. He is awake and alert in no acute distress. He is maintaining good O2 saturations in the 90s on room air. Today's chest x-ray reveals interstitial densities and sm all bilateral pleural effusions. The patient is seen today July 02, 2023 in follow-up on the regular medical floor. He is currently resting comfortably in bed. Awake and alert in no acute distress. Maintaining O2 saturations in the 90s on room air. He is afebrile. Hemodynamically stable. Chest x-ray continues to show some fluid volume overload. Blood cultures revealed no growth. Sodium 129. Potassium 3.4. Bicarb 25. BUN 18. Creatinine 0.49. Glucose 105. He remains on Lasix 20 mg IV every 12 hours. Continued on Pulmicort inhalations. Anticoagulated with Eliquis. He is currently in a -900 mL balance. The patient is seen today July 03, 2023 in follow-up on the regular medical f jamey. He is sitting up in bed. Awake and alert in no acute distress. He continues to maintain good O2 saturations in the 90s on room air. He has been afebrile. Hemodynamically stable. He is continued on Lasix 20 mg IV every 12 hours. He remains in a negative balance. Sodium 130. Potassium 3.9. Bicarb 26. BUN 20. Creatinine 0.67. Glucose 94. BNP was 337. Anticoagulated with Eliquis Objective - Vital Signs Vital signs: Vital Signs Temp 98.4 F 07/03/23 06:51 Pulse 64 07/03/23 06:51 Resp 18 07/03/23 09:30 BP 120/73 07/03/23 06:51 Pulse Ox 98 07/03/23 06:51 FiO2 Intake & Output 07/02/23 07/03/23 07/03/23 18:59 06:59 18:59 Intake Total 118 100 Output Total 650 250 Balance -532 -250 100 Weight 54.431 kg Intake: Oral 118 100 Output: Urine 650 250 Other: Voiding Method Diaper Diaper Diaper Incontinent Incontinent Incontinent External Catheter External Catheter External Catheter - Exam GENERAL EXAM: Alert, developmentally delayed, pleasant 72-year-old male, resting in bed, on room air, in no apparent distress. HEAD: Normocephalic. EYES: Normal reaction of pupils, equal size. NOSE: Clear with pink turbinates. THROAT: No erythema or exudates. NECK: No masses, no JVD. CHEST: No chest wall deformity. LUNGS: Equal air entry with bibasilar crackles right greater than left. CVS: S1 and S2 normal with no audible murmur, regular rhythm. ABDOMEN: No hepatosplenomegaly, normal bowel sounds, no guarding or rigidity. SPINE: No scoliosis or deformity SKIN: No rashes CENTRAL NERVOUS SYSTEM: No focal deficits, tone is normal in all 4 extremities. EXTREMITIES: Limited range of motion of the upper and lower extremities. There is no peripheral edema. Peripheral pulses are intact. - Labs CBC & Chem 7: 06/30/23 04:45 07/03/23 06:18 Labs: Abnormal Lab Results - Last 24 Hours (Table) 07/02/23 07/03/23 07/03/23 Range/Units 06:51 06:18 06:18 Sodium 130 L (137-145) mmol/L Chloride 96 L (98-107) mmol/L Iron 42 L (65-175) UG/DL TIBC 213 L (228-460) UG/DL Transferrin 152.0 L (204.0-354.0) mg/dL NT-Pro-B Natriuret Pep 337 H (0-125) pg/mL Vitamin B12 2749.0 H (200.0-944.0) pg/mL Microbiology - Last 24 Hours (Table) 06/30/23 01:00 Blood Culture - Preliminary Blood 06/30/23 00:41 Blood Culture - Preliminary Blood Assessment and Plan Assessment: Abdominal pain of unclear etiology. Right inguinal hernia containing fluid noted on CT, no bowel obstruction Bilateral pleural effusions right greater than left, echocardiogram results still pending Developmentally delayed and resides in a adult foster care setting Hypothyroidism Hyperlipidemia Gastroesophageal reflux disease History of seizure disorder Plan: The patient was seen and evaluated Labs and medications reviewed Decrease Lasix 20 mg IV daily Follow-up chest x-ray in a.m. Echocardiogram results pending We will continue to follow I have personally seen and examined the patient, performed the documentation and the assessment and plan as written. Number of minutes spent on the visit: 10.
--- NOTE | 2023-07-03 15:56 | P.PN ---
Subjective Progress Note Date: 07/03/23 Principal diagnosis: Reason for follow-up is abnormal CT right hip concerning for septic arthritis Patient is a 72-year-old male with a past medical history significant for mentally challenged seizure disorder patient has been brought to the hospital from the local [facility] home for evaluation abdominal discomfort, patient did have a CT abdominal pelvis concerning for right hip joint effusion and suspicious for septic arthritis prompting this consultation. On today's evaluation that is 07/03/2023,the patient remains to be afebrile, patient is on room air not requiring supplemental oxygen and is breathing comfortably no vomiting diarrhea has been reported by nursing staff patient not a good historian. Patient did have creatinine 0.67 x-ray of the right hip diffuse osteopenia with no other significant abnormality Objective - Vital Signs Vital signs: Vital Signs Temp 98.4 F 07/03/23 06:51 Pulse 64 07/03/23 06:51 Resp 18 07/03/23 09:30 BP 120/73 07/03/23 06:51 Pulse Ox 98 07/03/23 06:51 FiO2 Intake & Output 07/02/23 07/03/23 07/03/23 18:59 06:59 18:59 Intake Total 118 100 Output Total 650 250 Balance -532 -250 100 Weight 54.431 kg Intake: Oral 118 100 Output: Urine 650 250 Other: Voiding Method Diaper Diaper Diaper Incontinent Incontinent Incontinent External Catheter External Catheter External Catheter - Exam GENERAL DESCRIPTION: An elderly male lying in bed in no distress RESPIRATORY SYSTEM: Unlabored breathing , decreased breath sounds at bases HEART: S1 S2 regular rate and rhythm , ABDOMEN: Soft , no tenderness EXTREMITIES: No edema feet - Labs CBC & Chem 7: 06/30/23 04:45 07/03/23 06:18 Labs: Abnormal Lab Results - Last 24 Hours (Table) 07/02/23 07/03/23 Range/Units 06:51 06:18 Sodium 130 L (137-145) mmol/L Chloride 96 L (98-107) mmol/L NT-Pro-B Natriuret Pep 337 H (0-125) pg/mL Microbiology - Last 24 Hours (Table) 06/30/23 01:00 Blood Culture - Preliminary Blood 06/30/23 00:41 Blood Culture - Preliminary Blood Assessment and Plan (1) Abnormal CT of the abdomen Current Visit: Yes Status: Acute Code(s): R93.5 - ABN FINDINGS ON DX IMAGING OF ABD REGIONS, INC RETROPERITON SNOMED Code(s): 55492810710312654 (2) Hip pain Current Visit: Yes Status: Acute Code(s): M25.559 - PAIN IN UNSPECIFIED HIP SNOMED Code(s): 03798023 Plan: 1patient with the significant abnormality to the right hip described on the CT abdominal pelvis however clinically patient is not behaving as septic arthritis in this patient with no fever no white count currently he did not have any tenderness swelling redness or any wound to the right hip site 2-CT report has been corrected by radiology mentioning severe arthritis clinical not behaving as septic arthritis patient did have normal ESR CRP is mildly elevated 3-patient did have x-ray of the right hip did mention diffuse osteopenia no bony destruction suspicious for septic joint clinically behaving and septic arthritis no need for antibiotics ID will sign off Dictation was produced using [employer] dictation software. please excuse any grammatical, word or spelling errors. Time with Patient: Less than 30
--- NOTE | 2023-07-03 16:20 | P.PN ---
Progress Note - Text Progress Note Date: 07/03/23 Hospital course: 72-year-old male with a PMH of cognitive delay, left arm fracture with contrac ture, hypothyroidism, hyperlipidemia, seizure disorder, resident of [facility], who was brought to the hospital via EMS due to complaints of abdominal and right arm pain. The patient is difficult to understand due to a speech impediment. He does report that he has been experiencing right arm and elbow pain over the past several days. He also reports of intermittent abdominal pain over the past several weeks with episodes of diarrhea. He denied experiencing chest discomfort, shortness of breath, fever, chills, cough, nausea, vomiting. CT abdomen and pelvis in the emergency room revealed bilateral pleural effusions with destruction of the right hip joint with effusion concerning for septic arthritis. Laboratory evaluation was remarkable for hemoglobin 12.3, sodium 132, WBC count 7.5, BUN 15, creatinine 0.44, with unremarkable UA and negative viral respiratory panel with lactic acid 0.7. Patient was admitted for Orthopedic Sx evaluation. Ortho recommended conservative management without surgical intervention. ID consulted, low probability for septic arthritis, obtain inflammatory markers, hold empiric antibiotics. 06/30 Patient was seen and examined. Chest US obtained for moderate pleural effusion. Pulmonary consulted, started on Lasix IV and Echo ordered. ESR 15. CRP 8.2. Hip XR shows no acute process, severe OA. July 01: Resting in bed. Did tolerate his breakfast. On IV Lasix. And negative fluid balance. Eating some. Spoke to nurse to get the patient up in a chair. July 02: Continues on IV Lasix 20 mg. Has had good urine output. Oral intake good. 2D echo results pending. Repeat chest x-ray in the morning. Active Medications Acetaminophen (Acetaminophen Tab 325 Mg Tab) 650 mg PO Q6HR PRN PRN Reason: Mild Pain or Fever > 100.5 Last Admin: 07/02/23 20:21 Dose: 650 mg Apixaban (Apixaban 2.5 Mg Tablet) 2.5 mg PO BID@0700,2100 [facility]; Protocol Last Admin: 07/03/23 06:34 Dose: 2.5 mg Aspirin (Aspirin 81 Mg) 81 mg PO DAILY@0700 [facility] Last Admin: 07/03/23 06:34 Dose: 81 mg Atorvastatin Calcium (Atorvastatin 10 Mg Tab) 10 mg PO [facility] Last Admin: 07/02/23 20:21 Dose: 10 mg Budesonide (Budesonide 0.5 Mg/2 Ml Nebu) 0.5 mg INHALATION RT-BID [facility] Last Admin: 07/03/23 09:49 Dose: Not Given Furosemide (Furosemide 10 Mg/Ml 2 Ml Vial) 20 mg IV DAILY [facility] Last Admin: 07/03/23 09:30 Dose: 20 mg Lamotrigine (Lamotrigine 25 Mg Tab) 50 mg PO DAILY@0700 [facility] Last Admin: 07/03/23 06:34 Dose: 50 mg Levothyroxine Sodium (Levothyroxine 75 Mcg Tab) 75 mcg PO DAILY@0700 [facility] Last Admin: 07/03/23 06:33 Dose: 75 mcg Midodrine (Midodrine 5 Mg Tab) 2.5 mg PO BID@0700,2100 [facility] Last Admin: 07/03/23 06:34 Dose: 2.5 mg Morphine Sulfate (Morphine Sulfate 2 Mg/Ml Syringe) 2 mg IV Q4HR PRN PRN Reason: Severe Pain (Scale 7 to 10) Naloxone HCl (Naloxone 0.4 Mg/Ml 1 Ml Vial) 0.2 mg IV Q2M PRN PRN Reason: Opioid Reversal Oxybutynin Chloride (Oxybutynin Xl 5 Mg Tab.Er.24) 10 mg PO DAILY@0700 [facility] Last Admin: 07/03/23 06:34 Dose: 10 mg Phenytoin Sodium (Phenytoin Sodium Extended 100 Mg Cap) 100 mg PO BID@0700,2100 [facility] Last Admin: 07/03/23 06:33 Dose: 100 mg Quetiapine Fumarate (Quetiapine 200 Mg Tab) 200 mg PO HS [facility] Last Admin: 07/02/23 20:20 Dose: 200 mg Physical examination: VITAL SIGNS: 98.2, 77, 18, 123% 7, 96% room air GENERAL: Laying in bed comfortable EYES: Pupils equal. Conjunctiva normal.. NECK: JVD not raised; masses not palpable. HEART: First and second heart sounds are normal; no edema. LUNGS: Respiratory rate normal; decreased breath sounds. ABDOMEN: Soft, nontender, liver spleen not palpable, no masses palpable. PSYCH: Patient is able to answer questions simple. MUSCULAR skeletal: Limited range of motion left arm. Painful movements right hip. Eft elbow contracture. NEUROLOGICAL: Slow speech. A bit slurred INVESTIGATIONS, reviewed in the clinical context: July 02: Sodium 130 potassium 3.9 creatinine 0.67 Iron 42 TIBC 2 1 3% saturation 19.7 transferrin 152 vitamin B12 2749 folate 13.9 June 29: White count 6.1 hemoglobin 9.5 platelets 204 sodium 129 potassium 3.4 BUN 18 creatinine 0.49 CRP 8.20 proBNP 337 UA: Trace protein Serum osmolality 264 CT abdomen pelvis [June 28]: Moderate bilateral pleural effusions and bibasilar infiltrate. Mild destruction of the right hip joint with joint effusion. Left elbow: Osseous structures are demineralized. Assessment and plan: -Bilateral pleural effusion secondary to CHF: Uncontrolled Being followed by pulmonary. 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 [facility] guardianship office is petitioning for guardianship. -Hyperlipidemia Lipitor 10 mg -Severe right hip osteoarthritis Seen by Dr. Zayas. No further intervention currently. K-pad -Chronic left arm contracture -Hypothyroid Synthroid 75 g daily -Normocytic anemia, borderline iron deficiency B12 folate-normal Some iron deficiency anemia-add ferrous sulfate -Anxiety, depression not otherwise specified Paxil 20 mg nightly, Seroquel 2 mg nightly, Seroquel XR 20 mg nightly, -Chronic hyponatremia, hypoosmolar Cut back free fluid-fluid restriction 1500 cc. -Full code Add ferrous sulfate. IV Lasix cut back to 20 mg a day. Pending 2D echo. Repeat chest x-ray in the morning.
[2023-07-03] MEDS: FERROUS SULFATE 325 MG TAB PO SCH (17:50)
[2023-07-04 06:13] LABS: African American GFR (CKD) >90 (>60 ml/min/1.73 sqM); Anion Gap 7 mmol/L; Blood Urea Nitrogen 28 mg/dL (9-20); Calcium 8.8 mg/dL (8.4-10.2); Carbon Dioxide 24 mmol/L (22-30); Chloride 99 mmol/L (98-107); Glucose 100 mg/dL (74-99); Non-African American GFR(CKD) >90 (>60 ml/min/1.73 sqM); Potassium 3.5 mmol/L (3.5-5.1); Sodium 130 mmol/L (137-145)
--- NOTE | 2023-07-04 12:13 | XR ---
EXAMINATION TYPE: XR chest 2V DATE OF EXAM: 07/04/2023 COMPARISON: 07/02/2023 HISTORY: 72-year-old male is breath TECHNIQUE: AP and lateral views FINDINGS: Heart normal size. Old catheter at the right side of the neck coursing down to the right side of the heart. Calcified hilar and mediastinal lymph nodes suggests sequela of prior granulomas disease. Mild interstitial prominence along with small bilateral pleural effusions, right greater than left. IMPRESSION: Ongoing mild pulmonary vascular congestion along with small pleural effusions.
--- NOTE | 2023-07-04 13:17 | P.PN ---
Subjective Progress Note Date: 07/04/23 Principal diagnosis: Abdominal pain secondary to right inguinal hernia and bilateral pleural effusions This is a pleasant 72-year-old male patient who resides in an adult foster care setting and has a history of being developmentally delayed, seizure disorder, chronic hyponatremia, MRSA of the buttock. He was brought into the emergency room on 06/29/2023 with complaints of abdominal pain. CT scan of the abdomen pelvis revealed moderate bilateral pleural effusions and bibasilar infiltrates/atelectasis. Marked reduction of the left hip with joint effusion. White count 6.1. Hemoglobin 11.5. Platelets 205. Sodium 132. Potassium 4.3. Bicarb 24. BUN 12. Creatinine 0.46. Viral screen negative. Urinalysis clean. Ultrasound of the chest revealed a moderate right-sided pleural effusion measuring 11.6 cm and a left pleural effusion measuring 8.0 cm. We were consult ed for the same. He is seen today on the regular medical floor. He is awake and alert in no acute distress. He is maintaining good O2 saturations in the 90s on room air. Today's chest x-ray reveals interstitial densities and small bilateral pleural effusions. The patient is seen today July 02, 2023 in follow-up on the regular medical floor. He is currently resting comfortably in bed. Awake and alert in no acute distress. Maintaining O2 saturations in the 90s on room air. He is afebrile. Hemodynamically stable. Chest x-ray continues to show some fluid volume overload. Blood cultures revealed no growth. Sodium 129. Potassium 3.4. Bicarb 25. BUN 18. Creatinine 0.49. Glucose 105. He remains on Lasix 20 mg IV every 12 hours. Continued on Pulmicort inhalations. Anticoagulated with Eliquis. He is currently in a -900 mL balance. The patient is seen today July 03, 2023 in follow-up on the regular medical floor. He is sitting up in bed. Awake and alert in no acute distress. He continues to maintain good O2 saturations in the 90s on room air. He has been afebrile. Hemodynamically stable. He is continued on Lasix 20 mg IV every 12 hours. He remains in a negative balance. Sodium 130. Potassium 3.9. Bicarb 26. BUN 20. Creatinine 0.67. Glucose 94. BNP was 337. Anticoagulated with Eliquis Patient was reevaluated today on 07/04/2023, remains on the regular medical floor, on room air, not in any distress, remains on Lasix 20 mg IV push twice daily, patient is doing great, denies shortness of breath cough wheezing or any chest pain. Renal profile remains normal with BUN of 28 creatinine 0.53 sodium is a bit low at 130, overall the patient is doing great Objective - Vital Signs Vital signs: Vital Signs Temp 98.5 F 07/04/23 07:00 Pulse 70 07/04/23 07:54 Resp 14 07/04/23 07:00 BP 118/73 07/04/23 07:00 Pulse Ox 95 07/04/23 07:00 FiO2 Intake & Output 07/03/23 07/04/23 07/04/23 18:59 06:59 18:59 Intake Total 150 Output Total 350 350 Balance -200 -350 Intake: Oral 150 Output: Urine 350 350 Other: Voiding Method Diaper Diaper Diaper Incontinent Incontinent Incontinent External Catheter External Catheter External Catheter # Voids 1 # Bowel Movements 0 - Exam GENERAL EXAM: 72-year-old on room air in no distress HEAD: Normocephalic. EYES: Normal reaction of pupils, equal size. NOSE: Clear with pink turbinates. THROAT: No erythema or exudates. NECK: No masses, no JVD. CHEST: No chest wall deformity. LUNGS: Diminished breath sounds at the bases no crackles rhonchi or wheezes CVS: S1 and S2 normal with no audible murmur, regular rhythm. ABDOMEN: No hepatosplenomegaly, normal bowel sounds, no guarding or rigidity. SKIN: No rashes CENTRAL NERVOUS SYSTEM: No focal deficits, tone is normal in all 4 extremities. EXTREMITIES: Limited range of motion of the upper and lower extremities. There is no peripheral edema. Peripheral pulses are intact. - Labs CBC & Chem 7: 06/30/23 04:45 07/04/23 04:47 Labs: Abnormal Lab Results - Last 24 Hours (Table) 07/04/23 Range/Units 04:47 Sodium 130 L (137-145) mmol/L BUN 28 H (9-20) mg/dL Creatinine 0.53 L (0.66-1.25) mg/dL Glucose 100 H (74-99) mg/dL Microbiology - Last 24 Hours (Table) 06/30/23 01:00 Blood Culture - Preliminary Blood 06/30/23 00:41 Blood Culture - Preliminary Blood Assessment and Plan Assessment: Impression: Abdominal pain of unclear etiology. Right inguinal hernia containing fluid noted on CT, no bowel obstruction Bilateral pleural effusions right greater than left, clinically improving with diuretics no need for thoracentesis Developmentally delayed and resides in a adult foster care setting Hypothyroidism Hyperlipidemia Gastroesophageal reflux disease History of seizure disorder Recommendation: Continue Lasix Continue to monitor labs including electrolytes and renal profile Repeat chest x-ray on Thursday We will continue to follow Again no need for thoracentesis at this point Time with Patient: Less than 30
--- NOTE | 2023-07-04 16:18 | P.PN ---
Progress Note - Text Progress Note Date: 07/04/23 Hospital course: 72-year-old male with a PMH of cognitive delay, left arm fracture with contrac ture, hypothyroidism, hyperlipidemia, seizure disorder, resident of [facility], who was brought to the hospital via EMS due to complaints of abdominal and right arm pain. The patient is difficult to understand due to a speech impediment. He does report that he has been experiencing right arm and elbow pain over the past several days. He also reports of intermittent abdominal pain over the past several weeks with episodes of diarrhea. He denied experiencing chest discomfort, shortness of breath, fever, chills, cough, nausea, vomiting. CT abdomen and pelvis in the emergency room revealed bilateral pleural effusions with destruction of the right hip joint with effusion concerning for septic arthritis. Laboratory evaluation was remarkable for hemoglobin 12.3, sodium 132, WBC count 7.5, BUN 15, creatinine 0.44, with unremarkable UA and negative viral respiratory panel with lactic acid 0.7. Patient was admitted for Orthopedic Sx evaluation. Ortho recommended conservative management without surgical intervention. ID consulted, low probability for septic arthritis, obtain inflammatory markers, hold empiric antibiotics. 06/30 Patient was seen and examined. Chest US obtained for moderate pleural effusion. Pulmonary consulted, started on Lasix IV and Echo ordered. ESR 15. CRP 8.2. Hip XR shows no acute process, severe OA. July 01: Resting in bed. Did tolerate his breakfast. On IV Lasix. And negative fluid balance. Eating some. Spoke to nurse to get the patient up in a chair. July 02: Continues on IV Lasix 20 mg. Has had good urine output. Oral intake good. 2D echo results pending. Repeat chest x-ray in the morning. July 03: Breathing better. Chest x-ray still showing pleural effusion. Increase IV Lasix to every 12. Follow eating fair Active Medications Acetaminophen (Acetaminophen Tab 325 Mg Tab) 650 mg PO Q6HR PRN PRN Reason: Mild Pain or Fever > 100.5 Last Admin: 07/04/23 09:13 Dose: 650 mg Apixaban (Apixaban 2.5 Mg Tablet) 2.5 mg PO BID@0700,2100 RITA; Protocol Last Admin: 07/04/23 06:25 Dose: 2.5 mg Aspirin (Aspirin 81 Mg) 81 mg PO DAILY@0700 [facility] Last Admin: 05/11/24 06:25 Dose: 81 mg Atorvastatin Calcium (Atorvastatin 10 Mg Tab) 10 mg PO [facility] Last Admin: 07/03/23 20:15 Dose: 10 mg Budesonide (Budesonide 0.5 Mg/2 Ml Nebu) 0.5 mg INHALATION RT-BID [facility] Last Admin: 07/04/23 07:45 Dose: 0.5 mg Ferrous Sulfate (Ferrous Sulfate 325 Mg Tab) 325 mg PO W/LUNCH [facility] Last Admin: 07/04/23 12:44 Dose: 325 mg Furosemide (Furosemide 10 Mg/Ml 2 Ml Vial) 20 mg IV BID [facility] Lamotrigine (Lamotrigine 25 Mg Tab) 50 mg PO DAILY@0700 [facility] Last Admin: 07/04/23 06:25 Dose: 50 mg Levothyroxine Sodium (Levothyroxine 75 Mcg Tab) 75 mcg PO DAILY@0700 [facility] Last Admin: 07/04/23 06:25 Dose: 75 mcg Midodrine (Midodrine 5 Mg Tab) 2.5 mg PO BID@0700,2100 [facility] Last Admin: 07/04/23 06:26 Dose: 2.5 mg Naloxone HCl (Naloxone 0.4 Mg/Ml 1 Ml Vial) 0.2 mg IV Q2M PRN PRN Reason: Opioid Reversal Oxybutynin Chloride (Oxybutynin Xl 5 Mg Tab.Er.24) 10 mg PO DAILY@0700 [facility] Last Admin: 07/04/23 06:26 Dose: 10 mg Phenytoin Sodium (Phenytoin Sodium Extended 100 Mg Cap) 100 mg PO BID@0700,2100 [facility] Last Admin: 07/04/23 06:26 Dose: 100 mg Quetiapine Fumarate (Quetiapine 200 Mg Tab) 200 mg PO [facility] Last Admin: 07/03/23 20:15 Dose: 200 mg Physical examination: VITAL SIGNS: 98.3, 71, 15, 1 one 3 x 65, 97% room air GENERAL: Laying in bed comfortable EYES: Pupils equal. Conjunctiva normal.. NECK: JVD not raised; masses not palpable. HEART: First and second heart sounds are normal; no edema. LUNGS: Respiratory rate normal; decreased breath sounds. ABDOMEN: Soft, nontender, liver spleen not palpable, no masses palpable. PSYCH: Patient is able to answer questions simple. MUSCULAR skeletal: Limited range of motion left arm. Painful movements right hip. Eft elbow contracture. NEUROLOGICAL: Slow speech. A bit slurred INVESTIGATIONS, reviewed in the clinical context: July 02: Sodium 130 potassium 3.9 creatinine 0.67 Iron 42 TIBC 2 1 3% saturation 19.7 transferrin 152 vitamin B12 2749 folate 13.9 June 29: White count 6.1 hemoglobin 9.5 platelets 204 sodium 129 potassium 3.4 BUN 18 creatinine 0.49 CRP 8.20 proBNP 337 UA: Trace protein Serum osmolality 264 CT abdomen pelvis [June 28]: Moderate bilateral pleural effusions and bibasilar infiltrate. Mild destruction of the right hip joint with joint effusion. Left elbow: Osseous structures are demineralized. Assessment and plan: -Bilateral pleural effusion secondary to CHF: Uncontrolled Being followed by pulmonary. 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 [facility] guardianship office is petitioning for guardianship. -Hyperlipidemia Lipitor 10 mg -Severe right hip osteoarthritis Seen by Dr. Zayas. No further intervention currently. K-pad -Chronic left arm contracture -Hypothyroid Synthroid 75 g daily -Normocytic anemia, borderline iron deficiency B12 folate-normal Some iron deficiency anemia-add ferrous sulfate -Anxiety, depression not otherwise specified Paxil 20 mg nightly, Seroquel 2 mg nightly, Seroquel XR 20 mg nightly, -Chronic hyponatremia, hypoosmolar Cut back free fluid-fluid restriction 1500 cc. -Full code Add ferrous sulfate. Increase IV Lasix to 20 mg twice daily. Pending 2D echo. Follow
[2023-07-04] MEDS: FUROSEMIDE 10 MG/ML 2 ML VIAL IV SCH (21:46)
--- NOTE | 2023-07-05 15:09 | P.PN ---
Subjective Progress Note Date: 07/05/23 Principal diagnosis: Abdominal pain secondary to right inguinal hernia and bilateral pleural effusions This is a pleasant 72-year-old male patient who resides in an adult foster care setting and has a history of being developmentally delayed, seizure disorder, chronic hyponatremia, MRSA of the buttock. He was brought into the emergency room on 06/29/2023 with complaints of abdominal pain. CT scan of the abdomen pelvis revealed moderate bilateral pleural effusions and bibasilar infiltrates/atelectasis. Marked reduction of the left hip with joint effusion. White count 6.1. Hemoglobin 11.5. Platelets 205. Sodium 132. Potassium 4.3. Bicarb 24. BUN 12. Creatinine 0.46. Viral screen negative. Urinalysis clean. Ultrasound of the chest revealed a moderate right-sided pleural effusion measuring 11.6 cm and a left pleural effusion measuring 8.0 cm. We were consult ed for the same. He is seen today on the regular medical floor. He is awake and alert in no acute distress. He is maintaining good O2 saturations in the 90s on room air. Today's chest x-ray reveals interstitial densities and small bilateral pleural effusions. The patient is seen today July 02, 2023 in follow-up on the regular medical floor. He is currently resting comfortably in bed. Awake and alert in no acute distress. Maintaining O2 saturations in the 90s on room air. He is afebrile. Hemodynamically stable. Chest x-ray continues to show some fluid volume overload. Blood cultures revealed no growth. Sodium 129. Potassium 3.4. Bicarb 25. BUN 18. Creatinine 0.49. Glucose 105. He remains on Lasix 20 mg IV every 12 hours. Continued on Pulmicort inhalations. Anticoagulated with Eliquis. He is currently in a -900 mL balance. The patient is seen today July 03, 2023 in follow-up on the regular medical floor. He is sitting up in bed. Awake and alert in no acute distress. He continues to maintain good O2 saturations in the 90s on room air. He has been afebrile. Hemodynamically stable. He is continued on Lasix 20 mg IV every 12 hours. He remains in a negative balance. Sodium 130. Potassium 3.9. Bicarb 26. BUN 20. Creatinine 0.67. Glucose 94. BNP was 337. Anticoagulated with Eliquis Patient was reevaluated today on 07/04/2023, remains on the regular medical floor, on room air, not in any distress, remains on Lasix 20 mg IV push twice daily, patient is doing great, denies shortness of breath cough wheezing or any chest pain. Renal profile remains normal with BUN of 28 creatinine 0.53 sodium is a bit low at 130, overall the patient is doing great Reevaluate today on 07/05/2023, patient remains on the regular medical floor, on room air, not in any form of distress. Remains on diuretics. We saw him initially for bilateral pleural effusions. Basic metabolic profile is relatively normal BUN is 28 creatinine 0.53, remains and negative fluid balance at least 1 L over the last 24 hours. Patient is asymptomatic. Objective - Vital Signs Vital signs: Vital Signs Temp 98.0 F 07/05/23 07:00 Pulse 70 07/05/23 14:00 Resp 18 07/05/23 14:00 BP 126/84 07/05/23 07:00 Pulse Ox 96 07/05/23 07:00 FiO2 Intake & Output 07/04/23 07/05/23 07/05/23 18:59 06:59 18:59 Output Total 1150 Balance -1150 Output: Urine 1150 Other: Voiding Method Diaper Diaper Diaper Incontinent Incontinent Incontinent External Catheter External Catheter External Catheter # Voids 1 # Bowel Movements 0 - Exam GENERAL EXAM: 72-year-old on room air in no distress HEAD: Normocephalic. EYES: Normal reaction of pupils, equal size. NOSE: Clear with pink turbinates. THROAT: No erythema or exudates. NECK: No masses, no JVD. CHEST: No chest wall deformity. LUNGS: Diminished breath sounds at the bases no crackles rhonchi or wheezes CVS: S1 and S2 normal with no audible murmur, regular rhythm. ABDOMEN: No hepatosplenomegaly, normal bowel sounds, no guarding or rigidity. SKIN: No rashes CENTRAL NERVOUS SYSTEM: No focal deficits, tone is normal in all 4 extremities. EXTREMITIES: Limited range of motion of the upper and lower extremities. There is no peripheral edema. Peripheral pulses are intact. - Labs CBC & Chem 7: 06/30/23 04:45 07/04/23 04:47 Labs: Microbiology - Last 24 Hours (Table) 06/30/23 01:00 Blood Culture - Final Blood 06/30/23 00:41 Blood Culture - Final Blood Assessment and Plan Assessment: Impression: Abdominal pain of unclear etiology. Right inguinal hernia containing fluid noted on CT, no bowel obstruction Bilateral pleural effusions right greater than left, clinically improving with diuretics no need for thoracentesis Developmentally delayed and resides in a adult foster care setting Hypothyroidism Hyperlipidemia Gastroesophageal reflux disease History of seizure disorder Recommendation: Continue Lasix Continue to monitor labs including electrolytes and renal profile Repeat chest x-ray on Thursday We will continue to follow, no plans for thoracentesis unless follow-up chest x- ray showed worsening of his pleural effusions. Time with Patient: Less than 30
[2023-07-05 16:17] VITALS: RESP 16
--- NOTE | 2023-07-05 16:31 | P.PN ---
Progress Note - Text Progress Note Date: 07/05/23 Hospital course: 72-year-old male with a PMH of cognitive delay, left arm fracture with contrac ture, hypothyroidism, hyperlipidemia, seizure disorder, resident of [facility], who was brought to the hospital via EMS due to complaints of abdominal and right arm pain. The patient is difficult to understand due to a speech impediment. He does report that he has been experiencing right arm and elbow pain over the past several days. He also reports of intermittent abdominal pain over the past several weeks with episodes of diarrhea. He denied experiencing chest discomfort, shortness of breath, fever, chills, cough, nausea, vomiting. CT abdomen and pelvis in the emergency room revealed bilateral pleural effusions with destruction of the right hip joint with effusion concerning for septic arthritis. Laboratory evaluation was remarkable for hemoglobin 12.3, sodium 132, WBC count 7.5, BUN 15, creatinine 0.44, with unremarkable UA and negative viral respiratory panel with lactic acid 0.7. Patient was admitted for Orthopedic Sx evaluation. Ortho recommended conservative management without surgical intervention. ID consulted, low probability for septic arthritis, obtain inflammatory markers, hold empiric antibiotics. 06/30 Patient was seen and examined. Chest US obtained for moderate pleural effusion. Pulmonary consulted, started on Lasix IV and Echo ordered. ESR 15. CRP 8.2. Hip XR shows no acute process, severe OA. July 01: Resting in bed. Did tolerate his breakfast. On IV Lasix. And negative fluid balance. Eating some. Spoke to nurse to get the patient up in a chair. July 02: Continues on IV Lasix 20 mg. Has had good urine output. Oral intake good. 2D echo results pending. Repeat chest x-ray in the morning. July 03: Breathing better. Chest x-ray still showing pleural effusion. Increase IV Lasix to every 12. Follow eating fair July 04: Breathing stable. On IV Lasix. Repeat chest x-ray tomorrow. Active Medications Acetaminophen (Acetaminophen Tab 325 Mg Tab) 650 mg PO Q6HR PRN PRN Reason: Mild Pain or Fever > 100.5 Last Admin: 07/05/23 06:22 Dose: 650 mg Apixaban (Apixaban 2.5 Mg Tablet) 2.5 mg PO BID@0700,2100 RITA; Protocol Last Admin: 07/05/23 06:22 Dose: 2.5 mg Aspirin (Aspirin 81 Mg) 81 mg PO DAILY@0700 [facility] Last Admin: 07/05/23 06:22 Dose: 81 mg Atorvastatin Calcium (Atorvastatin 10 Mg Tab) 10 mg PO [facility] Last Admin: 07/04/23 21:45 Dose: 10 mg Budesonide (Budesonide 0.5 Mg/2 Ml Nebu) 0.5 mg INHALATION RT-BID [facility] Last Admin: 07/05/23 07:36 Dose: 0.5 mg Ferrous Sulfate (Ferrous Sulfate 325 Mg Tab) 325 mg PO W/LUNCH [facility] Last Admin: 07/05/23 11:38 Dose: 325 mg Furosemide (Furosemide 10 Mg/Ml 2 Ml Vial) 20 mg IV BID [facility] Last Admin: 07/05/23 08:59 Dose: 20 mg Lamotrigine (Lamotrigine 25 Mg Tab) 50 mg PO DAILY@0700 [facility] Last Admin: 07/05/23 06:22 Dose: 50 mg Levothyroxine Sodium (Levothyroxine 75 Mcg Tab) 75 mcg PO DAILY@0700 [facility] Last Admin: 07/05/23 06:22 Dose: 75 mcg Midodrine (Midodrine 5 Mg Tab) 2.5 mg PO BID@0700,2100 [facility] Last Admin: 07/05/23 06:22 Dose: 2.5 mg Naloxone HCl (Naloxone 0.4 Mg/Ml 1 Ml Vial) 0.2 mg IV Q2M PRN PRN Reason: Opioid Reversal Oxybutynin Chloride (Oxybutynin Xl 5 Mg Tab.Er.24) 10 mg PO DAILY@0700 [facility] Last Admin: 07/05/23 06:22 Dose: 10 mg Phenytoin Sodium (Phenytoin Sodium Extended 100 Mg Cap) 100 mg PO BID@0700,2100 [facility] Last Admin: 07/05/23 06:22 Dose: 100 mg Quetiapine Fumarate (Quetiapine 200 Mg Tab) 200 mg PO [facility] Last Admin: 07/04/23 21:45 Dose: 200 mg Physical examination: VITAL SIGNS: 88.2, 75, 16, 105 x 77, 96% room air GENERAL: Laying in bed comfortable EYES: Pupils equal. Conjunctiva normal.. NECK: JVD not raised; masses not palpable. HEART: First and second heart sounds are normal; no edema. LUNGS: Respiratory rate normal; decreased breath sounds. ABDOMEN: Soft, nontender, liver spleen not palpable, no masses palpable. PSYCH: Patient is able to answer questions simple. MUSCULAR skeletal: Limited range of motion left arm. Painful movements right hip. Eft elbow contracture. NEUROLOGICAL: Slow speech. A bit slurred INVESTIGATIONS, reviewed in the clinical context: July 02: Sodium 130 potassium 3.9 creatinine 0.67 Iron 42 TIBC 2 1 3% saturation 19.7 transferrin 152 vitamin B12 2749 folate 13.9 June 29: White count 6.1 hemoglobin 9.5 platelets 204 sodium 129 potassium 3.4 BUN 18 creatinine 0.49 CRP 8.20 proBNP 337 UA: Trace protein Serum osmolality 264 CT abdomen pelvis [June 28]: Moderate bilateral pleural effusions and bibasilar infiltrate. Mild destruction of the right hip joint with joint effusion. Left elbow: Osseous structures are demineralized. Assessment and plan: -Bilateral pleural effusion secondary to CHF: Uncontrolled Being followed by pulmonary. 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 [facility] guardianship office is petitioning for guardianship. -Hyperlipidemia Lipitor 10 mg -Severe right hip osteoarthritis Seen by Dr. Zayas. No further intervention currently. K-pad -Chronic left arm contracture -Hypothyroid Synthroid 75 g daily -Normocytic anemia, borderline iron deficiency B12 folate-normal Some iron deficiency anemia-add ferrous sulfate -Anxiety, depression not otherwise specified Paxil 20 mg nightly, Seroquel 2 mg nightly, Seroquel XR 20 mg nightly, -Chronic hyponatremia, hypoosmolar Cut back free fluid-fluid restriction 1500 cc. -Full code Repeat chest x-ray tomorrow morning. Other medications to continue.
[2023-07-06 07:09] LABS: African American GFR (CKD) >90 (>60 ml/min/1.73 sqM); Anion Gap 9 mmol/L; Blood Urea Nitrogen 25 mg/dL (9-20); Calcium 9.4 mg/dL (8.4-10.2); Carbon Dioxide 24 mmol/L (22-30); Chloride 99 mmol/L (98-107); Glucose 96 mg/dL (74-99); Non-African American GFR(CKD) >90 (>60 ml/min/1.73 sqM); Potassium 3.4 mmol/L (3.5-5.1); Sodium 132 mmol/L (137-145)
--- NOTE | 2023-07-06 08:03 | XR ---
EXAMINATION TYPE: XR chest 2V DATE OF EXAM: 07/06/2023 COMPARISON: 07/04/2023 HISTORY: 72-year-old male follow-up pulmonary edema TECHNIQUE: Frontal and lateral views FINDINGS: Heart normal size. Hyperinflation. Calcified mediastinal and hilar lymph nodes. There are small bilat eral pleural effusions which are decreasing on the lateral view. The appearance to the pulmonary vasc ulature is also improving. Partially calcified right-sided shunt catheter. IMPRESSION: COPD and evidence of prior granulomatous disease with resolving CHF. Residual small pleural effusions remain.
[2023-07-06 10:18] VITALS: PULSE 71
--- NOTE | 2023-07-06 11:49 | P.PN ---
Subjective Progress Note Date: 07/06/23 This is a pleasant 72-year-old male patient who resides in an adult foster care setting and has a history of being developmentally delayed, seizure disorder, chronic hyponatremia, MRSA of the buttock. He was brought into the emergency room on 06/29/2023 with complaints of abdominal pain. CT scan of the abdomen pelvis revealed moderate bilateral pleural effusions and bibasilar infiltrates/atelectasis. Marked reduction of the left hip with joint effusion. White count 6.1. Hemoglobin 11.5. Platelets 205. Sodium 132. Potassium 4.3. Bicarb 24. BUN 12. Creatinine 0.46. Viral screen negative. Urinalysis clean. Ultrasound of the chest revealed a moderate right-sided pleural effusion measuring 11.6 cm and a left pleural effusion measuring 8.0 cm. We were consulted for the same. He is seen today on the regular medical floor. He is awake and alert in no acute distress. He is maintaining good O2 saturations in the 90s on room air. Today's chest x-ray reveals interstitial densities and sm all bilateral pleural effusions. The patient is seen today July 02, 2023 in follow-up on the regular medical floor. He is currently resting comfortably in bed. Awake and alert in no acute distress. Maintaining O2 saturations in the 90s on room air. He is afebrile. Hemodynamically stable. Chest x-ray continues to show some fluid volume overload. Blood cultures revealed no growth. Sodium 129. Potassium 3.4. Bicarb 25. BUN 18. Creatinine 0.49. Glucose 105. He remains on Lasix 20 mg IV every 12 hours. Continued on Pulmicort inhalations. Anticoagulated with Eliquis. He is currently in a -900 mL balance. The patient is seen today July 03, 2023 in follow-up on the regular medical f jamey. He is sitting up in bed. Awake and alert in no acute distress. He continues to maintain good O2 saturations in the 90s on room air. He has been afebrile. Hemodynamically stable. He is continued on Lasix 20 mg IV every 12 hours. He remains in a negative balance. Sodium 130. Potassium 3.9. Bicarb 26. BUN 20. Creatinine 0.67. Glucose 94. BNP was 337. Anticoagulated with Eliquis Patient was reevaluated today on 07/04/2023, remains on the regular medical floor, on room air, not in any distress, remains on Lasix 20 mg IV push twice daily, patient is doing great, denies shortness of breath cough wheezing or any chest pain. Renal profile remains normal with BUN of 28 creatinine 0.53 sodium is a bit low at 130, overall the patient is doing great Reevaluate today on 07/05/2023, patient remains on the regular medical floor, on room air, not in any form of distress. Remains on diuretics. We saw him initially for bilateral pleural effusions. Basic metabolic profile is relat ively normal BUN is 28 creatinine 0.53, remains and negative fluid balance at least 1 L over the last 24 hours. Patient is asymptomatic. The patient is seen today July 06, 2023 in follow-up on the regular medical floor. He is resting comfortably in bed. Awake and alert in no acute distress. Maintaining O2 saturations in the 90s on room air. He has been afebrile. Hemodynamically stable. Follow-up chest x-ray reveals evidence of COPD and prior Granulomatous disease and resolving CHF. Residual small right pleural effusion remains. Blood cultures revealed no growth. Sodium 132. Potassium 3.4. Bicarb 24. BUN 25. Creatinine 0.54. Glucose 96. He remains on Lasix 20 mg IV push twice daily. Anticoagulated with Eliquis. Currently in a negative balance. Objective - Vital Signs Vital signs: Vital Signs Temp 96.1 F L 07/06/23 07:00 Pulse 76 07/06/23 08:03 Resp 16 07/06/23 08:00 BP 123/75 07/06/23 07:00 Pulse Ox 99 07/06/23 07:00 FiO2 Intake & Output 07/05/23 07/06/23 07/06/23 18:59 06:59 18:59 Intake Total 560 560 Output Total 375 525 525 Balance 185 -525 35 Intake: Oral 560 560 Output: Urine 375 525 525 Other: Voiding Method Diaper Diaper Incontinent Incontinent External Catheter External Catheter # Voids 1 # Bowel Movements 0 - Exam GENERAL EXAM: Alert, developmentally delayed, 72-year-old male, resting in bed, on room air, in no apparent distress. HEAD: Normocephalic. EYES: Normal reaction of pupils, equal size. NOSE: Clear with pink turbinates. THROAT: No erythema or exudates. NECK: No masses, no JVD. CHEST: No chest wall deformity. LUNGS: Equal air entry with bibasilar crackles right greater than left. CVS: S1 and S2 normal with no audible murmur, regular rhythm. ABDOMEN: No hepatosplenomegaly, normal bowel sounds, no guarding or rigidity. SPINE: No scoliosis or deformity SKIN: No rashes CENTRAL NERVOUS SYSTEM: No focal deficits, tone is normal in all 4 extremities. EXTREMITIES: Limited range of motion of the upper and lower extremities. There is no peripheral edema. Peripheral pulses are intact. - Labs CBC & Chem 7: 06/30/23 04:45 07/06/23 06:40 Labs: Abnormal Lab Results - Last 24 Hours (Table) 07/06/23 Range/Units 06:40 Sodium 132 L (137-145) mmol/L Potassium 3.4 L (3.5-5.1) mmol/L BUN 25 H (9-20) mg/dL Creatinine 0.54 L (0.66-1.25) mg/dL Microbiology - Last 24 Hours (Table) 06/30/23 01:00 Blood Culture - Final Blood 06/30/23 00:41 Blood Culture - Final Blood Assessment and Plan Assessment: Abdominal pain of unclear etiology. Right inguinal hernia containing fluid noted on CT, no bowel obstruction Bilateral pleural effusions right greater than left, follow-up chest x-ray shows near complete resolution, post diuresis Developmentally delayed and resides in a adult foster care setting Hypothyroidism Hyperlipidemia Gastroesophageal reflux disease History of seizure disorder Plan: The patient was seen and evaluated Labs and medications reviewed Follow-up chest x-ray reviewed Stable and on room air Cleared for discharge from the pulmonary standpoint Plan is to return to his adult foster care facility This patient was seen independently by the pulmonary nurse practitioner addressing pulmonary issues I have personally seen and examined the patient, performed the documentation and the assessment and plan as written. Number of minutes spent on the visit: 24.
[2023-07-06 11:55] VITALS: BP 123/75; TEMP 96.1
--- NOTE | 2023-07-06 16:50 | P.DS ---
Providers Date of admission: 07/02/23 10:04 Expected date of discharge: 07/06/23 Attending physician: Jaime Jovel Consults: 06/30/23 09:20 Consult Physician Routine Consulting Provider: Raquel Pedro Consult Reason/Comments: concerns for septic arthritis on ct Do you want consulting provider notified?: Yes 06/30/23 11:50 Consult Physician Routine Consulting Provider: Rajan Zayas Consult Reason/Comments: hip pain Do you want consulting provider notified?: Yes 07/01/23 07:37 Consult Physician Routine Consulting Provider: Nanda Weller Consult Reason/Comments: pleural effusion Do you want consulting provider notified?: Yes Primary care physician: [facility] Hospital Course: Hospital course: 72-year-old male with a PMH of cognitive delay, left arm fracture with contracture, hypothyroidism, hyperlipidemia, seizure disorder, resident of [facility], who was brought to the hospital via EMS due to complaints of abdominal and right arm pain. The patient is difficult to understand due to a speech impediment. He does report that he has been experiencing right arm and elbow pain over the past several days. He also reports of intermittent abdominal pain over the past several weeks with episodes of diarrhea. He denied experiencing chest discomfort, shortness of breath, fever, chills, cough, nausea, vomiting. CT abdomen and pelvis in the emergency room revealed bilateral pleural effusions with destruction of the right hip joint with effusion concerning for septic arthritis. Laboratory evaluation was remarkable for hemoglobin 12.3, sodium 132, WBC count 7.5, BUN 15, creatinine 0.44, with unremarkable UA and negative viral respiratory panel with lactic acid 0.7. Patient was admitted for Orthopedic Sx evaluation. Ortho recommended conservative management without surgical intervention. ID consulted, low probability for septic arthritis, obtain inflammatory markers, hold empiric antibiotics. 06/30 Patient was seen and examined. Chest US obtained for moderate pleural effusion. Pulmonary consulted, started on Lasix IV and Echo ordered. ESR 15. CRP 8.2. Hip XR shows no acute process, severe OA. July 01: Resting in bed. Did tolerate his breakfast. On IV Lasix. And negative fluid balance. Eating some. Spoke to nurse to get the patient up in a chair. July 02: Continues on IV Lasix 20 mg. Has had good urine output. Oral intake good. 2D echo results pending. Repeat chest x-ray in the morning. July 03: Breathing better. Chest x-ray still showing pleural effusion. Increase IV Lasix to every 12. Follow eating fair July 04: Breathing stable. On IV Lasix. Repeat chest x-ray tomorrow. July 05: Breathing well. Will discharge on Lasix 20 mg a day. Follow-up with Dr. Weller/pulmonary outpatient. 2D reported to be normal. LV function. Form al results pending Physical examination: VITAL SIGNS: 96.1, 71, 16, 123 x 75, 99% room air GENERAL: Laying in bed comfortable EYES: Pupils equal. Conjunctiva normal.. NECK: JVD not raised; masses not palpable. HEART: First and second heart sounds are normal; no edema. LUNGS: Respiratory rate normal; decreased breath sounds. ABDOMEN: Soft, nontender, liver spleen not palpable, no masses palpable. PSYCH: Patient is able to answer questions simple. MUSCULAR skeletal: Limited range of motion left arm. Painful movements right hip. Eft elbow contracture. NEUROLOGICAL: Slow speech. A bit slurred INVESTIGATIONS, reviewed in the clinical context: July 05: Sodium 132 potassium 3.4 creatinine 0.54 July 02: Sodium 130 potassium 3.9 creatinine 0.67 Iron 42 TIBC 2 1 3% saturation 19.7 transferrin 152 vitamin B12 2749 folate 13.9 June 29: White count 6.1 hemoglobin 9.5 platelets 204 sodium 129 potassium 3.4 BUN 18 creatinine 0.49 CRP 8.20 proBNP 337 UA: Trace protein Serum osmolality 264 CT abdomen pelvis [June 28]: Moderate bilateral pleural effusions and bibasilar infiltrate. Mild destruction of the right hip joint with joint effusion. Left elbow: Osseous structures are demineralized. Assessment and plan: -Bilateral pleural effusion secondary to CHF: Improved Being followed by pulmonary. IV Lasix 20 mg twice daily DC on Lasix 20 mg a day 2D echo-reported to be normal LV function. 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 [facility] guardianship office is petitioning for guardianship. -Hyperlipidemia Lipitor 10 mg -Severe right hip osteoarthritis Seen by Dr. Zayas. No further intervention currently. K-pad -Chronic left arm contracture -Hypothyroid Synthroid 75 g daily -Normocytic anemia, borderline iron deficiency B12 folate-normal Some iron deficiency anemia-add ferrous sulfate -Anxiety, depression not otherwise specified Paxil 20 mg nightly, Seroquel 2 mg nightly, Seroquel XR 20 mg nightly, -Chronic hyponatremia, hypoosmolar Cut back free fluid-fluid restriction 1500 cc. -Full code Disposition: Robert GLORIA Plan - Discharge Summary New Discharge Prescriptions: New Ferrous Sulfate [Iron (65 MG Elemental)] 325 mg PO W/LUNCH #30 tab Furosemide [Lasix] 20 mg PO DAILY #30 tab Continue Aspirin EC [Ecotrin Low Dose] 81 mg PO DAILY@0700 Phenytoin Sodium Extended [Dilantin] 100 mg PO BID@0700,2100 Sodium Chloride Tab 1 gm PO TID@0700,1700,2100 Ascorbic Acid [Vitamin C] 500 mg PO BID@0700,2100 Tolterodine [Detrol] 2 mg PO BID@0700,2100 Sennosides/Docusate Sodium [Senna-S 8.6-50 mg Tablet] 2 tab PO BID@0700,2100 Budesonide [Pulmicort] 0.5 mg INHALATION RT-BID Cyanocobalamin (Vitamin B-12) [Vitamin B-12] 1,000 mcg PO DAILY@0700 QUEtiapine XR [SEROquel XR] 200 mg PO HS Midodrine HCl [ProAmantine] 2.5 mg PO BID@0700,2100 Atorvastatin [Lipitor] 10 mg PO HS Cholecalciferol [Vitamin D3 (125 Mcg = 5000 Iu)] 125 mcg PO DAILY@0700 QUEtiapine [SEROquel] 200 mg PO HS L.acidoph,Paracasei, B.lactis [Probiotic] 1 cap PO BID@0700,2100 lamoTRIgine [LaMICtal] 50 mg PO DAILY@0700 Meloxicam [Mobic] 7.5 mg PO DAILY@0700 Levothyroxine Sodium [Synthroid] 75 mcg PO DAILY@0700 Ipratropium-Albuterol Nebulize [Duoneb 0.5 mg-3 mg/3 ml Soln] 3 ml INHALATION RT-TID Apixaban [Eliquis] 2.5 mg PO BID@0700,2100 Lactulose [Constulose] 20 gm PO BID@0700,1700 Benzonatate [Tessalon Perle] 200 mg PO TID PRN PRN Reason: Cough Discontinued Zinc Gluconate [Zinc] 50 mg PO DAILY@0700 Magnesium Hydroxide [Milk of Magnesia] 2,400 mg PO ONCE PRN PRN Reason: Constipation PARoxetine [Paxil] 20 mg PO HS Discharge Medication List Aspirin EC [Ecotrin Low Dose] 81 mg PO DAILY@0700 10/05/20 [History] Atorvastatin [Lipitor] 10 mg PO HS 10/05/20 [History] Cyanocobalamin (Vitamin B-12) [Vitamin B-12] 1,000 mcg PO DAILY@0700 10/05/20 [History] Midodrine HCl [ProAmantine] 2.5 mg PO BID@0700,209910/05/20 [History] Phenytoin Sodium Extended [Dilantin] 100 mg PO BID@0700,209910/05/20 [History] QUEtiapine XR [SEROquel XR] 200 mg PO HS 10/05/20 [History] Sodium Chloride Tab 1 gm PO TID@0700,1700,209910/15/20 [History] Apixaban [Eliquis] 2.5 mg PO BID@0700,209906/29/23 [History] Ascorbic Acid [Vitamin C] 500 mg PO BID@0700,209906/29/23 [History] Benzonatate [Tessalon Perle] 200 mg PO TID PRN 06/29/23 [History] Budesonide [Pulmicort] 0.5 mg INHALATION RT-BID 06/29/23 [History] Cholecalciferol [Vitamin D3 (125 Mcg = 5000 Iu)] 125 mcg PO DAILY@0700 06/29/23 [History] Ipratropium-Albuterol Nebulize [Duoneb 0.5 mg-3 mg/3 ml Soln] 3 ml INHALATION RT-TID 06/29/23 [History] L.acidoph,Paracasei, B.lactis [Probiotic] 1 cap PO BID@0700,209906/29/23 [History] Lactulose [Constulose] 20 gm PO BID@0700,1700 06/29/23 [History] Levothyroxine Sodium [Synthroid] 75 mcg PO DAILY@0700 06/29/23 [History] Meloxicam [Mobic] 7.5 mg PO DAILY@0700 06/29/23 [History] QUEtiapine [SEROquel] 200 mg PO HS 06/29/23 [History] Sennosides/Docusate Sodium [Senna-S 8.6-50 mg Tablet] 2 tab PO BID@0700,209906/29/23 [History] Tolterodine [Detrol] 2 mg PO BID@0700,209906/29/23 [History] lamoTRIgine [LaMICtal] 50 mg PO DAILY@0700 06/29/23 [History] Ferrous Sulfate [Iron (65 MG Elemental)] 325 mg PO W/LUNCH #30 tab 07/04/23 [Rx] Furosemide [Lasix] 20 mg PO DAILY #30 tab 07/04/23 [Rx] Follow up Appointment(s)/Referral(s): Nanda Weller MD [STAFF PHYSICIAN] - 1 Week Solomon Ring MD [Primary Care Provider] - 1-2 days Patient Instructions/Handouts: Acute Abdominal Pain (DC), Hip Pain (ED) Activity/Diet/Wound Care/Special Instructions: fluid restrict 2000 cc/day Discharge Disposition: TRANSFER TO SNF/ECF
--- NOTE | 2023-07-08 20:20 | CDI ---
Documentation Clarification Form Date: 07/08/2023 07:44:38 PM From: Antonietta Mcallister Phone: Admit Date: 07/02/2023 10:04:00 AM Patient Name: Rick Hogue Visit Number: [id number] Discharge Date: 07/06/2023 02:52:00 PM ATTENTION: The Clinical Documentation Specialists (CDI) and [facility] Coding Staff appreciate your assistance in clarifying documentation. Please respond to the clarification below the line at the bottom and electronically sign. The CDI & [facility] Coding staff will review the response and follow-up if needed. Please note: Queries are made part of the Legal Health Record. If you have any questions, please contact the author of this message via ITS. Dr. Jaime Jovel Your patient has the documented diagnosis of unspecified CHF Consult 06/30 and Progress Notes. Additional information regarding the type and acuity of CHF is requested. History/Risk Factors: 72yo M, YUE pleural effusion,CHF, mild cognitive impairmentfrom childhoodmental retardation, HLD, Rt hip OA, chronic left armcontracture, hypothyroid, DENISE, anxiety,depression, chronichyponatremia, hypoosmolar Clinical Indicators: VS/Pulse OX: 95 BNP: 337 Echocardiogram Results: 2D echo results pending per [facility] Chest X Ray: 06/29 Bilateral pleural effusionsmarked forthoracentesis. 06/30 Interstitialdensitiesand smallbilateral pleural effusions. Possiblesequela of mildCHF. 07/01 Cardiomegaly, pulmonary vascularcongestionandbilateral pleural effusions. Correlate with BNP forCHF. Treatment: IV Lasix In your professional opinion, can you please clarify the [acuity and type] of CHF if known? [ ] Acute Systolic Heart Failure (reduced EF) [ ] Chronic Systolic Heart Failure (reduced EF) [ ] Acute on Chronic Systolic Heart Failure (reduced EF) [ ] Acute Diastolic Heart Failure (preserved EF) [ ] Chronic Diastolic Heart Failure (preserved EF) [ + ] Acute on Chronic Diastolic Heart Failure (preserved EF) [ ] Acute Systolic & Diastolic Heart Failure [ ] Chronic Systolic & Diastolic Heart Failure [ ] Acute on Chronic Heart Failure Systolic & Diastolic Heart Failure [ ] Other, please specify [ ] Unable to determine (Template Last Revised: March 2020) MTDD
== END 2023-07-06 14:52 | DRG 291 ==
LOC: EC 18:56 → 6NMEDSUR 23:43 → OBSVTOIN 07-02 10:04
PROVIDERS: ADMIT Hospitalist; ATTEND Hospitalist
DX: I11.0 Hypertensive heart disease with heart failure (principal); I50.33 Acute on chronic diastolic (congestive) heart failure; E87.1 Hypo-osmolality and hyponatremia; F79 Unspecified intellectual disabilities; G31.84 Mild cognitive impairment of uncertain or unknown etiology; E78.5 Hyperlipidemia, unspecified; M16.11 Unilateral primary osteoarthritis, right hip; M24.522 Contracture, left elbow; D50.9 Iron deficiency anemia, unspecified; F32.A Depression, unspecified; F41.9 Anxiety disorder, unspecified; Z79.899 Other long term (current) drug therapy; E03.9 Hypothyroidism, unspecified; Z79.890 Hormone replacement therapy; K40.90 Unilateral inguinal hernia, without obstruction or gangrene, not specified as recurrent; G40.909 Epilepsy, unspecified, not intractable, without status epilepticus; K21.9 Gastro-esophageal reflux disease without esophagitis; M85.851 Other specified disorders of bone density and structure, right thigh; K59.00 Constipation, unspecified; M25.451 Effusion, right hip; R47.9 Unspecified speech disturbances; R79.82 Elevated C-reactive protein (CRP); R94.8 Abnormal results of function studies of other organs and systems; R62.50 Unspecified lack of expected normal physiological development in childhood; Z79.01 Long term (current) use of anticoagulants; Z79.82 Long term (current) use of aspirin; Z79.1 Long term (current) use of non-steroidal anti-inflammatories (NSAID); Z86.14 Personal history of Methicillin resistant Staphylococcus aureus infection; Z87.891 Personal history of nicotine dependence; Z87.81 Personal history of (healed) traumatic fracture; Z87.09 Personal history of other diseases of the respiratory system
CPT/HCPCS: 36415; 51701; 71045; 71046; 73502; 74177; 76604; 80048; 80053; 81003; 82150; 82607; 82728; 82746; 83540; 83550; 83605; 83690; 83880; 85025; 85652; 86140; 87040; 87636; 93306; 94640; 96374; 96375; 99285

== ENCOUNTER 2024-01-29 16:04 | Inpatient (IN) | payer MEDICARE, OTHER ==
[2024-01-29] MEDS ORDERED: NITROGLYCERIN SL TABS 0.4 MG TAB SUBLINGUAL PRN (16:42)
--- NOTE | 2024-01-29 16:42 | ED ---
General Adult HPI - General Chief complaint: Shortness of Breath Stated complaint: N Stemi Time Seen by Provider: 01/29/24 16:10 Source: patient, EMS, RN notes reviewed, old records reviewed Mode of arrival: EMS Limitations: no limitations - History of Present Illness Initial comments: This is a 73-year-old male who has developmental delay. Patient was initially seen at [facility]. He came in according to the ER doctor there for her. Some potential neck pain which they thought was an anginal equivalent they did a workup on the patient his troponin was mildly elevated so they transferred him to. Patient is already on Eliquis. Patient denies any problems now but it is difficult to ascertain if pulmonary he is really reliable. - Related Data Home Medications Medication Instructions Recorded Confirmed Aspirin EC [Ecotrin Low Dose] 81 mg PO DAILY@0700 10/05/20 06/29/23 Atorvastatin [Lipitor] 10 mg PO HS 10/05/20 06/29/23 Cyanocobalamin (Vitamin B-12) 1,000 mcg PO DAILY@0700 10/05/20 06/29/23 [Vitamin B-12] Midodrine HCl [ProAmantine] 2.5 mg PO BID@0700,209910/05/20 06/29/23 Phenytoin Sodium Extended 100 mg PO BID@0700,209910/05/20 06/29/23 [Dilantin] QUEtiapine XR [SEROquel XR] 200 mg PO HS 10/05/20 06/29/23 Sodium Chloride Tab 1 gm PO TID@0700,1700,209910/15/20 06/29/23 Apixaban [Eliquis] 2.5 mg PO BID@0700,209906/29/23 06/29/23 Ascorbic Acid [Vitamin C] 500 mg PO BID@0700,209906/29/23 06/29/23 Benzonatate [Tessalon Perle] 200 mg PO TID PRN 06/29/23 06/29/23 Budesonide [Pulmicort] 0.5 mg INHALATION RT-BID 06/29/23 06/29/23 Cholecalciferol [Vitamin D3 (125 125 mcg PO DAILY@0700 06/29/23 06/29/23 Mcg = 5000 Iu)] Ipratropium-Albuterol Nebulize 3 ml INHALATION RT-TID 06/29/23 06/29/23 [Duoneb 0.5 mg-3 mg/3 ml Soln] L.acidoph,Paracasei, B.lactis 1 cap PO BID@0700,209906/29/23 06/29/23 [Probiotic] Lactulose [Constulose] 20 gm PO BID@0700,1700 06/29/23 06/29/23 Levothyroxine Sodium [Synthroid] 75 mcg PO DAILY@69906/29/23 06/29/23 Meloxicam [Mobic] 7.5 mg PO DAILY@0700 06/29/23 06/29/23 QUEtiapine [SEROquel] 200 mg PO HS 06/29/23 06/29/23 Sennosides/Docusate Sodium 2 tab PO BID@0700,209906/29/23 06/29/23 [Senna-S 8.6-50 mg Tablet] Tolterodine [Detrol] 2 mg PO BID@0700,209906/29/23 06/29/23 lamoTRIgine [LaMICtal] 50 mg PO DAILY@0700 06/29/23 06/29/23 Previous Rx's Medication Instructions Recorded Ferrous Sulfate [Iron (65 MG 325 mg PO W/LUNCH #30 tab 07/04/23 Elemental)] Furosemide [Lasix] 20 mg PO DAILY #30 tab 07/04/23 Allergies Allergy/AdvReac Type Severity Reaction Status Date / Time No Known Allergies Allergy Verified 06/29/23 20:35 Review of Systems ROS Statement: Those systems with pertinent positive or pertinent negative responses have been documented in the HPI. ROS Other: All systems not noted in ROS Statement are negative. Past Medical History Past Medical History: Unable to Obtain, Seizure Disorder Additional Past Medical History / Comment(s): Mentally challenged. History of Any Multi-Drug Resistant Organisms: MRSA Date of last positivie culture/infection: 10/05/20 MDRO Source:: MRSA BUTTOCK Additional Past Surgical History / Comment(s): Left arm broken; surgical repair. Shunt placed 1970. Past Anesthesia/Blood Transfusion Reactions: No Reported Reaction Past Psychological History: No Psychological Hx Reported Additional Psychological History / Comment(s): pt. mentally challenged. Smoking Status: Unknown if ever smoked Past Alcohol Use History: None Reported Past Drug Use History: None Reported - Past Family History family Family Medical History: Unable to Obtain General Exam - General Exam Comments Initial Comments: GENERAL: Patient is well-developed and well-nourished. Patient is nontoxic and well- hydrated and is in no acute distress. ENT: Neck is soft and supple. No significant lymphadenopathy is noted. Oropharynx is clear. Moist mucous membranes. Neck has full range of motion without eliciting any pain. EYES: The sclera were anicteric and conjunctiva were pink and moist. Extraocular movements were intact and pupils were equal round and reactive to light. Eye lids were unremarkable. PULMONARY: Unlabored respirations. Good breath sounds bilaterally. No audible rales rhonchi or wheezing was noted. CARDIOVASCULAR: There is a regular rate and rhythm without any murmurs gallops or rubs. ABDOMEN: Soft and nontender with normal bowel sounds. SKIN: Skin is clear with no lesions or rashes and otherwise unremarkable. NEUROLOGIC: Patient is alert and oriented to x 1. MUSCULOSKELETAL: Normal extremities with adequate strength and full range of motion. No lower extremity swelling or edema. No calf tenderness. LYMPHATICS: No significant lymphadenopathy is noted PSYCHIATRIC: Unable to evaluate Limitations: no limitations Course Vital Signs 01/29/24 16:06 Temperature 99.5 F Pulse Rate 95 Respiratory 18 Rate Blood Pressure 94/81 O2 Sat by Pulse 94 L Oximetry Medical Decision Making - Medical Decision Making EKG is interpreted by myself. EKG shows sinus rhythm at 92 bpm. TN interval 125 QRS of 73 QT interval 367 QTc is 416. Patient's EKG shows no ST segment elevation or depression. Disposition Clinical Impression: Elevated troponin Disposition: ADMITTED IP TO THIS [facility] Referrals: Patrice Seals MD [Primary Care Provider] - 1-2 days Time of Disposition: 16:42
[2024-01-29 17:13] LABS: Phenytoin (Dilantin) 8.2 ug/mL
[2024-01-29 17:14] LABS: Valproic Acid (Depakene) <10.0 ug/mL
[2024-01-29] MEDS: NITROGLYCERIN OINT 1 INCH/GM PACKET TOPICAL SCH (17:37)
[2024-01-29] MEDS ORDERED: BUDESONIDE 0.5 MG/2 ML NEBU INHALATION PRN (18:37)
[2024-01-29] MEDS ORDERED: IPRATROPIUM-ALBUTEROL 3 ML NEB INHALATION PRN (18:37)
--- NOTE | 2024-01-29 19:51 | P.HPIM ---
History of Present Illness H&P Date: 01/29/24 Chief Complaint: , Short of breath 73-year-old male with a PMH of cognitive delay, left arm fracture with contracture, hypothyroidism, hyperlipidemia, seizure disorder, resident of [facility], To her ER from [facility]. Patient was initially seen at this family doctor's office 2 days prior Nancy's on Thursday with cough short of breath. Was prescribed antibiotics. Symptoms got worse and he presented to [facility]. At the [facility] had a temperature 100.7 and also had productive cough. Patient himself is a poor historian. Does question about some pain he reported in his neck/chest. Troponin at [facility] was 0.077 hence he was transferred here. Review of systems difficult to obtain because of patient underlying dysarthria Social history: Resident of [facility]. Physical examination: VITAL SIGNS: 98.7, 94, 20, 121/80, 95% room air GENERAL: Laying in bed a bit uncomfortable EYES: Pupils equal. Conjunctiva normal.. HEENT: Patient constantly moves his tongue in and out of the mouth. NECK: JVD not raised; masses not palpable. HEART: First and second heart sounds are normal; no edema. LUNGS: Respiratory rate normal; decreased breath sounds. ABDOMEN: Soft, nontender, liver spleen not palpable, no masses palpable. PSYCH: Attitude also questions. MUSCULAR skeletal: Limited range of motion left arm. Left forearm contracture NEUROLOGICAL: Slow speech. A bit slurred INVESTIGATIONS, reviewed in the clinical context: Troponin I 0.064 Investigation from [facility] White count 12 hemoglobin 12 platelets 248 sodium 134 potassium 3 BUN 16.7 creatinine 0.59 Troponin I 0.077. proBNP 3050 D-dimer 3.22 Assessment and plan: -Possible reported anterior chest wall pain. In a patient who is not a good historian. Troponin at [place] 0.077. Here 0.064 Telemetry. Repeat troponin. -Acute tracheobronchitis Zithromax - cognitive impairment from childhood mental retardation -Hyperlipidemia Lipitor 10 mg -Chronic left forearm arm contracture -Hypothyroid Synthroid 75 g daily -Normocytic anemia, borderline iron deficiency -Anxiety, depression not otherwise specified Paxil and Seroquel -Chronic hyponatremia, hypoosmolar Follow sodium closely -Full code Past Medical History Past Medical History: Unable to Obtain, Seizure Disorder Additional Past Medical History / Comment(s): Mentally challenged. History of Any Multi-Drug Resistant Organisms: MRSA Date of last positivie culture/infection: 10/05/20 MDRO Source:: MRSA BUTTOCK Additional Past Surgical History / Comment(s): Left arm broken; surgical repair. Shunt placed 1970. Past Anesthesia/Blood Transfusion Reactions: No Reported Reaction Past Psychological History: No Psychological Hx Reported Smoking Status: Unknown if ever smoked Past Alcohol Use History: None Reported Past Drug Use History: None Reported - Past Family History family Family Medical History: Unable to Obtain Medications and Allergies Home Medications Medication Instructions Recorded Confirmed Type Aspirin EC [Ecotrin Low Dose] 81 mg PO DAILY@69910/05/20 01/29/24 History Atorvastatin [Lipitor] 10 mg PO HS@209910/05/20 01/29/24 History Cyanocobalamin (Vitamin B-12) 1,000 mcg PO DAILY@00 10/05/20 01/29/24 History [Vitamin B-12] Midodrine HCl [ProAmantine] 2.5 mg PO BID@0700,209910/05/20 01/29/24 History Phenytoin Sodium Extended 100 mg PO BID@0700,209910/05/20 01/29/24 History [Dilantin] QUEtiapine XR [SEROquel XR] 200 mg PO HS@209910/05/20 01/29/24 History Sodium Chloride Tab 1 gm PO TID@0700,1700,209910/15/20 01/29/24 History Apixaban [Eliquis] 2.5 mg PO BID@0700,209906/29/23 01/29/24 History Ascorbic Acid [Vitamin C] 500 mg PO BID@0700,209906/29/23 01/29/24 History Benzonatate [Tessalon Perle] 200 mg PO TID@, PRN 06/29/23 01/29/24 History Budesonide [Pulmicort] 0.5 mg INHALATION RT-BID PRN 06/29/23 01/29/24 History Cholecalciferol [Vitamin D3 (125 125 mcg PO DAILY@0700 06/29/23 01/29/24 History Mcg = 5000 Iu)] Ipratropium-Albuterol Nebulize 3 ml INHALATION RT-TID PRN 06/29/23 01/29/24 History [Duoneb 0.5 mg-3 mg/3 ml Soln] L.acidoph,Paracasei, B.lactis 1 cap PO BID@699,209906/29/23 01/29/24 History [Probiotic] Lactulose [Constulose] 20 gm PO BID@00,169906/29/23 01/29/24 History Levothyroxine Sodium [Synthroid] 75 mcg PO DAILY@69906/29/23 01/29/24 History Meloxicam [Mobic] 7.5 mg PO DAILY@69906/29/23 01/29/24 History QUEtiapine [SEROquel] 200 mg PO HS@209906/29/23 01/29/24 History Sennosides/Docusate Sodium 2 tab PO BID@699,209906/29/23 01/29/24 History [Senna-S 8.6-50 mg Tablet] Tolterodine [Detrol] 2 mg PO BID@699,209906/29/23 01/29/24 History lamoTRIgine [LaMICtal] 50 mg PO DAILY@69906/29/23 01/29/24 History Amoxic-Pot Clav 875-125Mg 1 tab PO BID@699,209901/29/24 01/29/24 History [Augmentin 875-125] Diclofenac Sodium Gel [Voltaren 1% 2 gm TOPICAL QID PRN 01/29/24 01/29/24 History Gel] Ferrous Sulfate [Iron (65 MG 325 mg PO DAILY@169901/29/24 01/29/24 History Elemental)] Furosemide [Lasix] 20 mg PO DAILY@69901/29/24 01/29/24 History Magnesium Hydroxide [Milk of 2,400 - 4,800 mg PO DAILY PRN MDD 01/29/24 01/29/24 History Magnesia] 4,800mg (60ml) PARoxetine [Paxil] 20 mg PO HS@209901/29/24 01/29/24 History Zinc Gluconate [Zinc] 50 mg PO DAILY@69901/29/24 01/29/24 History bisacodyL [Dulcolax] 5 mg PO DAILY@69901/29/2424 History Allergies Allergy/AdvReac Type Severity Reaction Status Date / Time No Known Allergies Allergy Verified 01/29/24 17:12 Physical Exam Vitals: Vital Signs Temp Pulse Resp BP Pulse Ox 01/29/24 18:30 98.7 F 94 20 121/80 95 01/29/24 16:06 99.5 F 95 18 94/81 94 L Intake and Output 01/29/24 01/29/24 01/29/24 06:59 14:59 22:59 Other: Weight 58.06 kg Results Labs: Abnormal Lab Results - Last 24 Hours (Table) 01/29/24 Range/Units 16:36 Troponin I 0.064 H* (0.000-0.034) ng/mL
[2024-01-29] MEDS: APIXABAN 2.5 MG TABLET PO SCH (20:48)
[2024-01-29] MEDS: MIDODRINE 5 MG TAB PO SCH (20:48)
[2024-01-29] MEDS: QUEtiapine 200 MG TAB PO SCH (20:48)
[2024-01-29] MEDS: QUEtiapine 100 MG TAB PO SCH (20:48)
[2024-01-29] MEDS: PARoxetine 20 MG TAB PO SCH (20:49)
[2024-01-29] MEDS: ATORVASTATIN 10 MG TAB PO SCH (20:49)
[2024-01-29] MEDS: AZITHROMYCIN 500 MG TAB PO SCH (20:58)
--- NOTE | 2024-01-29 21:24 | XR ---
EXAMINATION TYPE: XR chest 1V DATE OF EXAM: 01/29/2024 8:18 PM CLINICAL INDICATION:Male, 73 years old with history of Cough; PH[facility] COMPARISON: Chest radiographs from TECHNIQUE: XR chest 1V Frontal view of the chest. FINDINGS: Lungs/Pleura: Multifocal airspace opacities. No evidence of pneumothorax. Trace bilateral pleural eff usions. Pulmonary vascularity: Unremarkable. Heart/mediastinum: Cardiomediastinal silhouette is unremarkable. Musculoskeletal: No acute osseous pathology. Other findings: None Lines/Tubes: Partially calcified right neck catheter demonstrating a similar course with the distal tip terminatin g over the area of the right atrium. IMPRESSION: Multifocal airspace opacities concerning for pneumonia. Trace bilateral pleural effusions. [facility], , 01/29/2024 9:21 PM
[2024-01-30] MEDS: bisacodyL 5 MG TABLET.DR PO SCH (08:47)
[2024-01-30] MEDS: ASPIRIN 325 MG TAB PO SCH (08:47)
[2024-01-30] MEDS: FUROSEMIDE 20 MG TAB PO SCH (08:48)
[2024-01-30] MEDS: LEVOTHYROXINE 75 MCG TAB PO SCH (08:48)
[2024-01-30] MEDS: OXYBUTYNIN 10 MG TAB.ER.24 PO SCH (08:49)
--- NOTE | 2024-01-30 11:14 | P.CRDCN ---
History of Present Illness Consult date: 01/30/24 Reason for Consult (text): Elevated troponins History of present illness: This is 73-year-old male patient of Dr. Nicolas Minaya with past medical history of orthostatic hypotension, dyslipidemia, chronic heart failure. We have been asked to evaluate the patient for elevated troponins. Patient resides at [facility] home and was transferred to [facility] with cough and shortness of breath, outpatient treatment for pneumonia. Patient was found to have a temperature max of 100.7. A troponin was obtained at [facility] which was elevated at 0.07 and patient was transferred to [facility] for further evaluation. Patient denies having any chest pain. No shortness of breath at this time. Blood pressure 127/72, heart rate 87, pulse ox 94% on room air. -EKG: Sinus rhythm [address] changes -Chest x-ray: Multifocal airspace opacities concerning for pneumonia. Trace bilateral pleural effusions. -Laboratory studies: Troponin 0.064, 0.054, 0.049. -Home cardiac medications: Eliquis 2.5 mg twice daily, aspirin 81 mg daily, atorvastatin 10 mg at bedtime, Lasix 20 mg daily, midodrine 2.5 mg twice daily. Review Of Systems: At the time of my exam: CONSTITUTIONAL: Denies fever or chills. HEENT: Denies blurred vision, vision changes, or eye pain. Denies hemoptysis CARDIOVASCULAR: Denies chest pain. Denies orthopnea. Denies PND. Denies palpitations RESPIRATORY: Denies shortness of breath. GASTROINTESTINAL: Denies abdominal pain. Denies nausea or vomiting. HEMATOLOGIC: Denies bleeding disorders. GENITOURINARY: Denies any blood in urine. SKIN: Denies puritis. Denies rash. Physical examination: Gen: This is a 73-year-old male in no acute distress VS: reviewed HEENT: Head is atraumatic, normocephalic. Pupils equal, round. Sclerae is anicteric. NECK: Supple. No JVD. LUNGS: Clear to auscultation. No wheezes or rhonchi. No intercostal retractions. HEART: Regular rate and rhythm. No murmur. ABDOMEN: Soft No tenderness. EXTREMITIES: No pedal edema. No calf tenderness. NEUROLOGICAL: Patient is awake, alert. Assessment: Mild troponin elevation of unclear clinical significance Acute bronchitis or possible pneumonia Orthostatic hypotension Dyslipidemia Chronic heart failure Plan: Resume patient's home cardiac medications Start patient on aspirin 81 mg daily and Imdur 30 mg daily Patient is not on a beta-dulce due to hypotension Obtain 2-D echocardiogram and Doppler study to assess cardiac structure and function Further recommendations to follow based upon clinical course Thank you kindly for this consultation. Nurse practitioner note has been reviewed, I agree with documented findings and plan of care. Patient was seen and examined. Past Medical History Past Medical History: Unable to Obtain, Seizure Disorder Additional Past Medical History / Comment(s): Mentally challenged. History of Any Multi-Drug Resistant Organisms: MRSA Date of last positivie culture/infection: 10/05/20 MDRO Source:: MRSA BUTTOCK Additional Past Surgical History / Comment(s): Left arm broken; surgical repair. Shunt placed 1970. Past Anesthesia/Blood Transfusion Reactions: No Reported Reaction Past Psychological History: No Psychological Hx Reported Smoking Status: Unknown if ever smoked Past Alcohol Use History: None Reported Past Drug Use History: None Reported - Past Family History family Family Medical History: Unable to Obtain Medications and Allergies Home Medications Medication Instructions Recorded Confirmed Type Aspirin EC [Ecotrin Low Dose] 81 mg PO DAILY@0700 10/05/20 01/29/24 History Atorvastatin [Lipitor] 10 mg PO HS@209910/05/20 01/29/24 History Cyanocobalamin (Vitamin B-12) 1,000 mcg PO DAILY@0700 10/05/20 01/29/24 History [Vitamin B-12] Midodrine HCl [ProAmantine] 2.5 mg PO BID@0700,209910/05/20 01/29/24 History Phenytoin Sodium Extended 100 mg PO BID@0700,209910/05/20 01/29/24 History [Dilantin] QUEtiapine XR [SEROquel XR] 200 mg PO HS@209910/05/20 01/29/24 History Sodium Chloride Tab 1 gm PO TID@0700,1700,209910/15/20 01/29/24 History Apixaban [Eliquis] 2.5 mg PO BID@0700,209906/29/23 01/29/24 History Ascorbic Acid [Vitamin C] 500 mg PO BID@0700,209906/29/23 01/29/24 History Benzonatate [Tessalon Perle] 200 mg PO TID@07,17,21 PRN 06/29/23 01/29/24 History Budesonide [Pulmicort] 0.5 mg INHALATION RT-BID PRN 06/29/23 01/29/24 History Cholecalciferol [Vitamin D3 (125 125 mcg PO DAILY@69906/29/23 01/29/24 History Mcg = 5000 Iu)] Ipratropium-Albuterol Nebulize 3 ml INHALATION RT-TID PRN 06/29/23 01/29/24 History [Duoneb 0.5 mg-3 mg/3 ml Soln] L.acidoph,Paracasei, B.lactis 1 cap PO BID@699,209906/29/23 01/29/24 History [Probiotic] Lactulose [Constulose] 20 gm PO BID@0700,169906/29/23 01/29/24 History Levothyroxine Sodium [Synthroid] 75 mcg PO DAILY@69906/29/23 01/29/24 History Meloxicam [Mobic] 7.5 mg PO DAILY@69906/29/23 01/29/24 History QUEtiapine [SEROquel] 200 mg PO HS@209906/29/23 01/29/24 History Sennosides/Docusate Sodium 2 tab PO BID@0700,209906/29/23 01/29/24 History [Senna-S 8.6-50 mg Tablet] Tolterodine [Detrol] 2 mg PO BID@07,209906/29/23 01/29/24 History lamoTRIgine [LaMICtal] 50 mg PO DAILY@69906/29/23 01/29/24 History Amoxic-Pot Clav 875-125Mg 1 tab PO BID@699,209901/29/24 01/29/24 History [Augmentin 875-125] Diclofenac Sodium Gel [Voltaren 1% 2 gm TOPICAL QID PRN 01/29/24 01/29/24 History Gel] Ferrous Sulfate [Iron (65 MG 325 mg PO DAILY@169901/29/24 01/29/24 History Elemental)] Furosemide [Lasix] 20 mg PO DAILY@69901/29/24 01/29/24 History Magnesium Hydroxide [Milk of 2,400 - 4,800 mg PO DAILY PRN MDD 01/29/24 01/29/24 History Magnesia] 4,800mg (60ml) PARoxetine [Paxil] 20 mg PO HS@2100 01/29/24 01/29/24 History Zinc Gluconate [Zinc] 50 mg PO DAILY@0700 01/29/24 01/29/24 History bisacodyL [Dulcolax] 5 mg PO DAILY@0700 01/29/24 01/29/24 History Allergies Allergy/AdvReac Type Severity Reaction Status Date / Time No Known Allergies Allergy Verified 01/29/24 17:12 Physical Exam Vitals: Vital Signs Temp Pulse Pulse Resp BP BP Pulse Ox 01/30/24 08:00 87 16 127/72 94 L 01/30/24 03:33 86 16 106/68 92 L 01/29/24 23:52 98.3 F 101 H 16 111/62 92 L 01/29/24 21:52 86 18 109/58 97 01/29/24 18:30 98.7 F 94 20 121/80 95 01/29/24 16:06 99.5 F 95 18 94/81 94 L Intake and Output 01/29/24 01/30/24 01/30/24 22:59 06:59 14:59 Output Total 500 Balance -500 Output: Urine 500 Straight 500 Other: Voiding Method Diaper Weight 58.06 kg 68 kg Results Cardiac Enzymes 01/29/24 01/29/24 01/29/24 Range/Units 16:36 20:03 23:43 Troponin I 0.064 H* 0.054 H* 0.049 H* (0.000-0.034) ng/mL Current Medications Generic Name Dose Route Start Last Admin Trade Name Freq PRN Reason Stop Dose Admin Albuterol/Ipratropium 3 ml 01/29/24 18:37 Ipratropium-Albuterol 3 Ml Neb INHALATION RT-TID PRN Shortness Of Breath Apixaban 2.5 mg 01/29/24 21:00 01/30/24 08:46 Apixaban 2.5 Mg Tablet PO 2.5 mg BID@0700,2100 [facility] Administration Protocol Aspirin 325 mg 01/30/24 09:00 01/30/24 08:47 Aspirin 325 Mg Tab PO 325 mg DAILY RITA Administration Atorvastatin Calcium 10 mg 01/29/24 21:00 01/29/24 20:49 Atorvastatin 10 Mg Tab PO 10 mg HS@2100 RITA Administration Azithromycin 500 mg 01/29/24 20:00 01/30/24 08:47 Azithromycin 500 Mg Tab PO 01/31/24 09:01 500 mg DAILY RITA Administration Protocol Bisacodyl 5 mg 01/30/24 07:00 01/30/24 08:47 Bisacodyl 5 Mg Tablet.Dr PO 5 mg DAILY@0700 RITA Administration Budesonide 0.5 mg 01/29/24 18:37 Budesonide 0.5 Mg/2 Ml Nebu INHALATION RT-BID PRN Shortness Of Breath Furosemide 20 mg 01/30/24 07:00 01/30/24 08:48 Furosemide 20 Mg Tab PO 20 mg DAILY@0700 RITA Administration Levothyroxine Sodium 75 mcg 01/30/24 07:00 01/30/24 08:48 Levothyroxine 75 Mcg Tab PO 75 mcg DAILY@07 [facility]ITA Administration Midodrine 2.5 mg 01/29/24 21:00 01/30/24 08:47 Midodrine 5 Mg Tab PO 2.5 mg BID@0700,2100 [facility]ITA Administration Nitroglycerin 0.4 mg 01/29/24 16:42 Nitroglycerin Sl Tabs 0.4 Mg Tab SUBLINGUAL Q5M PRN Chest Pain Nitroglycerin 1 inch 01/29/24 18:00 01/30/24 06:04 Nitroglycerin Oint 1 Inch/Gm Packet TOPICAL 1 inch Q6HR [facility]ITA Administration Oxybutynin Chloride 10 mg 01/30/24 09:00 01/30/24 08:49 Oxybutynin 10 Mg Tab.Er.24 PO 10 mg DAILY RITA Administration Paroxetine HCl 20 mg 01/29/24 21:00 01/29/24 20:49 Paroxetine 20 Mg Tab PO 20 mg HS@2100 [facility]ITA Administration Quetiapine Fumarate 200 mg 01/29/24 21:00 01/29/24 20:48 Quetiapine 200 Mg Tab PO 200 mg HS@2100 [facility] Administration Quetiapine Fumarate 100 mg 01/29/24 21:00 01/30/24 08:49 Quetiapine 100 Mg Tab PO 100 mg BID [facility]ITA Administration Intake and Output 01/29/24 01/30/24 01/30/24 22:59 06:59 14:59 Output Total 500 Balance -500 Output: Urine 500 Straight 500 Other: Voiding Method Diaper Weight 58.06 kg 68 kg
[2024-01-30] MEDS: ISOSORBIDE MONONITRATE ER 30 MG TAB.ER.24H PO SCH (12:30)
--- NOTE | 2024-01-30 16:27 | P.PN ---
Progress Note - Text Progress Note Date: 01/30/24 Chief Complaint: , Short of breath 73-year-old male with a PMH of cognitive delay, left arm fracture with contracture, hypothyroidism, hyperlipidemia, seizure disorder, resident of [facility], To her ER from [facility]. Patient was initially seen at this family doctor's office 2 days prior Nancy's on Thursday with cough short of breath. Was prescribed antibiotics. Symptoms got worse and he presented to [facility]. At the [facility] had a temperature 100.7 and also had productive cough. Patient himself is a poor historian. Does question about some pain he reported in his neck/chest. Troponin at [facility] was 0.077 hence he was transferred here. January 29: Patient appears to be more comfortable. Speaking slowly slowed able to understand speech better. Denies any chest pain. Per cardiology patient to continue with aspirin and Imdur. 2D echo has been ordered. Chest x-ray shows infiltrates. Will add IV ceftriaxone. Active Medications Albuterol/Ipratropium (Ipratropium-Albuterol 3 Ml Neb) 3 ml INHALATION RT-TID PRN PRN Reason: Shortness Of Breath Apixaban (Apixaban 2.5 Mg Tablet) 2.5 mg PO BID@0700,2100 [facility]; Protocol Last Admin: 01/30/24 08:46 Dose: 2.5 mg Aspirin (Aspirin 81 Mg) 81 mg PO DAILY [facility] Atorvastatin Calcium (Atorvastatin 10 Mg Tab) 10 mg PO HS@2100 [facility] Last Admin: 01/29/24 20:49 Dose: 10 mg Azithromycin (Azithromycin 500 Mg Tab) 500 mg PO DAILY [facility]; Protocol Stop: 01/31/24 09:01 Last Admin: 01/30/24 08:47 Dose: 500 mg Bisacodyl (Bisacodyl 5 Mg Tablet.Dr) 5 mg PO DAILY@0700 [facility] Last Admin: 01/30/24 08:47 Dose: 5 mg Budesonide (Budesonide 0.5 Mg/2 Ml Nebu) 0.5 mg INHALATION RT-BID PRN PRN Reason: Shortness Of Breath Furosemide (Furosemide 20 Mg Tab) 20 mg PO DAILY@0700 [facility] Last Admin: 01/30/24 08:48 Dose: 20 mg Isosorbide Mononitrate (Isosorbide Mononitrate Er 30 Mg Tab.Er.24h) 30 mg PO DAILY [facility] Last Admin: 01/30/24 12:30 Dose: 30 mg Levothyroxine Sodium (Levothyroxine 75 Mcg Tab) 75 mcg PO DAILY@0700 [facility] Last Admin: 01/30/24 08:48 Dose: 75 mcg Midodrine (Midodrine 5 Mg Tab) 2.5 mg PO BID@0700,2100 [facility] Last Admin: 01/30/24 08:47 Dose: 2.5 mg Nitroglycerin (Nitroglycerin Sl Tabs 0.4 Mg Tab) 0.4 mg SUBLINGUAL Q5M PRN PRN Reason: Chest Pain Oxybutynin Chloride (Oxybutynin 10 Mg Tab.Er.24) 10 mg PO DAILY [facility] Last Admin: 01/30/24 08:49 Dose: 10 mg Paroxetine HCl (Paroxetine 20 Mg Tab) 20 mg PO HS@2100 [facility] Last Admin: 01/29/24 20:49 Dose: 20 mg Quetiapine Fumarate (Quetiapine 200 Mg Tab) 200 mg PO HS@2100 [facility] Last Admin: 01/29/24 20:48 Dose: 200 mg Quetiapine Fumarate (Quetiapine 100 Mg Tab) 100 mg PO BID [facility] Last Admin: 01/30/24 08:49 Dose: 100 mg Social history: Resident of [facility]. Physical examination: VITAL SIGNS: Afebrile, 97, 16, 141 x 66, 92% room air GENERAL: Laying in bed, comfortable EYES: Pupils equal. Conjunctiva normal.. HEENT: Patient constantly moves his tongue in and out of the mouth. NECK: JVD not raised; masses not palpable. HEART: First and second heart sounds are normal; no edema. LUNGS: Respiratory rate normal; decreased breath sounds. ABDOMEN: Soft, nontender, liver spleen not palpable, no masses palpable. PSYCH: Unable to assess MUSCULAR skeletal: Limited range of motion left arm. Left forearm contracture NEUROLOGICAL: Slow speech but able to understand INVESTIGATIONS, reviewed in the clinical context: Troponin I 0.064, 0.054, 0.049 EKG tracing personally reviewed by me-ST-T wave changes. Specially lateral leads. Sinus rhythm. Chest x-ray film personally reviewed by me-infiltrates Investigation from [facility] White count 12 hemoglobin 12 platelets 248 sodium 134 potassium 3 BUN 16.7 creatinine 0.59 Troponin I 0.077. proBNP 3050 D-dimer 3.22 Assessment and plan: -Possible reported anterior chest wall pain. In a patient who is not a good historian. Troponin at [place] 0.077. Here 0.064 Telemetry. Cardiology following 2D echo pending -Troponinemia likely from underlying pneumonia. Doubt ACS Cardiology following -Multilobar pneumonia, suspect gram-negative organism Zithromax. 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 2D echo pending. Past Medical History Past Medical History: Unable to Obtain, Seizure Disorder Additional Past Medical History / Comment(s): Mentally challenged. History of Any Multi-Drug Resistant Organisms: MRSA Date of last positivie culture/infection: 10/05/20 MDRO Source:: MRSA BUTTOCK Additional Past Surgical History / Comment(s): Left arm broken; surgical repair. Shunt placed 1970. Past Anesthesia/Blood Transfusion Reactions: No Reported Reaction Past Psychological History: No Psychological Hx Reported Smoking Status: Unknown if ever smoked Past Alcohol Use History: None Reported Past Drug Use History: None Reported
[2024-01-30 20:26] LABS: Chol/HDL Ratio 2.24 Ratio; LDL Cholesterol,Calculated 69.4 mg/dL (0.0-131.0); VLDL Calculation 15.78 mg/dL (5.00-40.00)
[2024-01-31] MEDS: ASPIRIN 81 MG PO SCH (08:08)
[2024-01-31 08:11] LABS: Basophils % (A) 0 %; Eosinophils # (A) 0.4 k/uL (0-0.7); Eosinophils % (A) 4 %; HGB 11.7 gm/dL (13.0-17.5); Lymphocytes # (A) 1.5 k/uL (1.0-4.8); Lymphocytes % (A) 13 %; MCH 30.7 pg (25.0-35.0); MCHC 34.4 g/dL (31.0-37.0); MCV 89.3 fL (80.0-100.0); Mean Platelet Volume 7.5; Monocytes # (A) 0.4 k/uL (0-1.0); Monocytes % (A) 3 %; Neutrophils # (A) 8.6 k/uL (1.3-7.7); Neutrophils % (A) 77 %; Platelet Count 383 k/uL (150-450); RBC 3.81 m/uL (4.30-5.90); RDW 13.2 % (11.5-15.5); WBC 11.1 k/uL (3.8-10.6)
[2024-01-31 08:19] LABS: African American GFR (CKD) >90 (>60 ml/min/1.73 sqM); Anion Gap 7 mmol/L; Blood Urea Nitrogen 13 mg/dL (9-20); Carbon Dioxide 27 mmol/L (22-30); Chloride 96 mmol/L (98-107); Glucose 88 mg/dL (74-99); Non-African American GFR(CKD) >90 (>60 ml/min/1.73 sqM); Potassium 3.6 mmol/L (3.5-5.1); Sodium 130 mmol/L (137-145)
--- NOTE | 2024-01-31 12:30 | P.PN ---
Subjective Progress Note Date: 01/31/24 Reason for Consult (text): Elevated troponins History of present illness: This is 73-year-old male patient of Dr. Nicolas Minaya with past medical history of or thostatic hypotension, dyslipidemia, chronic heart failure. We have been asked to evaluate the patient for elevated troponins. Patient resides at [facility] home and was transferred to [facility] with cough and shortness of breath, outpatient treatment for pneumonia. Patient was found to have a temperature max of 100.7. A troponin was obtained at [facility] which was elevated at 0.07 and patient was transferred to [facility] for further evaluation. Patient denies having any chest pain. No shortness of breath at this time. Blood pressure 127/72, heart rate 87, pulse ox 94% on room air. -EKG: Sinus rhythm [address] changes -Chest x-ray: Multifocal airspace opacities concerning for pneumonia. Trace bilateral pleural effusions. -Laboratory studies: Troponin 0.064, 0.054, 0.049. -Home cardiac medications: Eliquis 2.5 mg twice daily, aspirin 81 mg daily, atorvastatin 10 mg at bedtime, Lasix 20 mg daily, midodrine 2.5 mg twice daily. 01/31/2024 Patient seen and examined. No complaints of chest pain. No shortness of breath. Blood pressure 119/74, heart rate in the 90s, pulse ox 90% on 2 L nasal cannula. Repeat blood work reveals WBC 11.1, hemoglobin 9.7, creatinine 0.56, potassium 3.6. Triglycerides 78, cholesterol 154, LDL 69, HDL 68. Echoc ardiogram is pending. Physical examination: Gen: This is a 73-year-old male in no acute distress VS: reviewed HEENT: Head is atraumatic, normocephalic. Pupils equal, round. Sclerae is anicteric. NECK: Supple. No JVD. LUNGS: Clear to auscultation. No wheezes or rhonchi. No intercostal retractions . HEART: Regular rate and rhythm. No murmur. ABDOMEN: Soft No tenderness. EXTREMITIES: No pedal edema. No calf tenderness. NEUROLOGICAL: Patient is awake, alert. Assessment: Mild troponin elevation of unclear clinical significance Acute bronchitis or possible pneumonia on IV antibiotics Orthostatic hypotension Dyslipidemia Chronic heart failure Plan: Continue patient's home cardiac medications Continue patient on aspirin 81 mg daily and Imdur 30 mg daily Patient is not on a beta-dulce due to hypotension Obtain 2-D echocardiogram and Doppler study to assess cardiac structure and function If echocardiogram is unremarkable, patient is cleared for discharge tomorrow Nurse practitioner note has been reviewed, I agree with documented findings and plan of care. Patient was seen and examined. Objective - Vital Signs Vital signs: Vital Signs Temp 98.3 F 01/29/24 23:52 Pulse 95 01/31/24 08:00 Resp 16 01/31/24 08:00 BP 129/69 01/31/24 08:00 Pulse Ox 91 L 01/31/24 08:00 FiO2 Intake & Output 01/30/24 01/31/24 01/31/24 18:59 06:59 18:59 Intake Total 360 Balance 360 Weight 68 kg Intake: Oral 360 Other: Voiding Method Diaper Diaper # Voids 2 0 - Labs CBC & Chem 7: 01/31/24 07:48 01/31/24 07:48 Labs: Abnormal Lab Results - Last 24 Hours (Table) 01/30/24 01/31/24 01/31/24 Range/Units 06:06 07:48 07:48 WBC 11.1 H (3.8-10.6) k/uL RBC 3.81 L (4.30-5.90) m/uL Hgb 11.7 L (13.0-17.5) gm/dL Hct 34.0 L (39.0-53.0) % Neutrophils # 8.6 H (1.3-7.7) k/uL Sodium 130 L (137-145) mmol/L Chloride 96 L (98-107) mmol/L Creatinine 0.56 L (0.66-1.25) mg/dL HDL Cholesterol 68.80 H (40.00-60.00) mg/dL
--- NOTE | 2024-01-31 15:29 | P.PN ---
Progress Note - Text Progress Note Date: 01/31/24 Chief Complaint: , Short of breath 73-year-old male with a PMH of cognitive delay, left arm fracture with contracture, hypothyroidism, hyperlipidemia, seizure disorder, resident of [facility], To her ER from [facility]. Patient was initially seen at this family doctor's office 2 days prior Nancy's on Thursday with cough short of breath. Was prescribed antibiotics. Symptoms got worse and he presented to [facility]. At the [facility] had a temperature 100.7 and also had productive cough. Patient himself is a poor historian. Does question about some pain he reported in his neck/chest. Troponin at [facility] was 0.077 hence he was transferred here. January 29: Patient appears to be more comfortable. Speaking slowly slowed able to understand speech better. Denies any chest pain. Per cardiology patient to continue with aspirin and Imdur. 2D echo has been ordered. Chest x-ray shows infiltrates. Will add IV ceftriaxone. January 30: Resting in bed. Intermittent cough. Pending 2D echo. On IV ceftriaxone. Decreased appetite. Remind about supervised feeding. Changed to chopped diet Active Medications Albuterol/Ipratropium (Ipratropium-Albuterol 3 Ml Neb) 3 ml INHALATION RT-TID PRN PRN Reason: Shortness Of Breath Apixaban (Apixaban 2.5 Mg Tablet) 2.5 mg PO BID@0700,2099 [facility]; Protocol Last Admin: 01/31/24 06:02 Dose: 2.5 mg Aspirin (Aspirin 81 Mg) 81 mg PO DAILY [facility] Last Admin: 01/31/24 08:08 Dose: 81 mg Atorvastatin Calcium (Atorvastatin 10 Mg Tab) 10 mg PO HS@2100 [facility] Last Admin: 01/30/24 20:45 Dose: 10 mg Bisacodyl (Bisacodyl 5 Mg Tablet.) 5 mg PO DAILY@0700 [facility] Last Admin: 01/31/24 06:02 Dose: 5 mg Budesonide (Budesonide 0.5 Mg/2 Ml Nebu) 0.5 mg INHALATION RT-BID PRN PRN Reason: Shortness Of Breath Furosemide (Furosemide 20 Mg Tab) 20 mg PO DAILY@0700 [facility] Last Admin: 01/31/24 06:02 Dose: 20 mg Ceftriaxone Sodium 1 gm/ (Sodium Chloride) 50 mls @ 100 mls/hr IVPB Q24HR [facility]; Protocol Last Admin: 01/31/24 08:07 Dose: 100 mls/hr Isosorbide Mononitrate (Isosorbide Mononitrate Er 30 Mg Tab.Er.24h) 30 mg PO DAILY [facility] Last Admin: 01/31/24 08:08 Dose: 30 mg Levothyroxine Sodium (Levothyroxine 75 Mcg Tab) 75 mcg PO DAILY@0700 [facility] Last Admin: 01/31/24 06:02 Dose: 75 mcg Midodrine (Midodrine 5 Mg Tab) 2.5 mg PO BID@0700,2100 [facility] Last Admin: 01/31/24 06:02 Dose: 2.5 mg Nitroglycerin (Nitroglycerin Sl Tabs 0.4 Mg Tab) 0.4 mg SUBLINGUAL Q5M PRN PRN Reason: Chest Pain Oxybutynin Chloride (Oxybutynin 10 Mg Tab.Er.24) 10 mg PO DAILY [facility] Last Admin: 01/31/24 08:08 Dose: 10 mg Paroxetine HCl (Paroxetine 20 Mg Tab) 20 mg PO HS@2100 [facility] Last Admin: 01/30/24 20:46 Dose: 20 mg Quetiapine Fumarate (Quetiapine 200 Mg Tab) 200 mg PO HS@2100 [facility] Last Admin: 01/30/24 20:46 Dose: 200 mg Quetiapine Fumarate (Quetiapine 100 Mg Tab) 100 mg PO BID [facility] Last Admin: 01/31/24 08:13 Dose: 100 mg Social history: Resident of [facility]. Physical examination: VITAL SIGNS: Afebrile, 91, 16, 119 x 74, 98% on 2 L GENERAL: Laying in bed, comfortable. Occasional cough EYES: Pupils equal. Conjunctiva normal.. HEENT: Patient constantly moves his tongue in and out of the mouth. NECK: JVD not raised; masses not palpable. HEART: First and second heart sounds are normal; no edema. LUNGS: Respiratory rate normal; decreased breath sounds. ABDOMEN: Soft, nontender, liver spleen not palpable, no masses palpable. PSYCH: Unable to assess MUSCULAR skeletal: Limited range of motion left arm. Left forearm contracture NEUROLOGICAL: Slow speech but able to understand INVESTIGATIONS, reviewed in the clinical context: January 30: White count 9.1 hemoglobin 9.7 platelets 3TC potassium 3.6 creatinine 0.56. Procalcitonin 0.60 Troponin I 0.064, 0.054, 0.049 EKG tracing personally reviewed by me-ST-T wave changes. Specially lateral leads. Sinus rhythm. Chest x-ray film personally reviewed by me-infiltrates Investigation from [facility] White count 12 hemoglobin 12 platelets 248 sodium 134 potassium 3 BUN 16.7 creatinine 0.59 Troponin I 0.077. proBNP 3050 D-dimer 3.22 Assessment and plan: -Possible reported anterior chest wall pain. In a patient who is not a good historian. Troponin at [place] 0.077. Here 0.064 Telemetry. Cardiology following 2D echo pending -Troponinemia likely from underlying pneumonia. Doubt [facility] Cardiology following -Multilobar pneumonia, suspect gram-negative organism Zithromax. IV ceftriaxone - cognitive impairment from childhood mental retardation -Hyperlipidemia Lipitor 10 mg -Chronic left forearm arm contracture -Hypothyroid Synthroid 75 g daily -Normocytic anemia, borderline iron deficiency -Anxiety, depression not otherwise specified Paxil and Seroquel -Chronic hyponatremia, hypoosmolar Follow sodium closely -Full code Continue IV ceftriaxone. 2D echo pending. Past Medical History Past Medical History: Unable to Obtain, Seizure Disorder Additional Past Medical History / Comment(s): Mentally challenged. History of Any Multi-Drug Resistant Organisms: MRSA Date of last positivie culture/infection: 10/05/20 MDRO Source:: MRSA BUTTOCK Additional Past Surgical History / Comment(s): Left arm broken; surgical repair. Shunt placed 1970. Past Anesthesia/Blood Transfusion Reactions: No Reported Reaction Past Psychological History: No Psychological Hx Reported Smoking Status: Unknown if ever smoked Past Alcohol Use History: None Reported Past Drug Use History: None Reported
[2024-01-31] MEDS: guaiFENesin 600 MG TABLET.ER PO SCH (20:13)
[2024-02-01 03:25] VITALS: RESP 18
[2024-02-01] MEDS: guaiFENesin 600 MG TABLET.ER PO SCH (07:33)
[2024-02-01 09:54] VITALS: BP 128/80; PULSE 71; TEMP 98.3
--- NOTE | 2024-02-01 12:01 | CA ---
Transthoracic Echo Report Name: Rick Hogue Age: 73 Gender: M : 1950 Exam Date: 02/01/2024 08:45 Exam Location: [facility] Ht (in): 60 Wt (lb): 149 Ordering Physician: Evelina Eisenberg Attending/Referring Phys: [id number], Elgin Wax [employer] Daniella Arce RDCS Procedure CPT: Indications: LVF Cardiac Hx: Technical Quality: Very technically difficult study Contrast 1: Total Dose (mL): Contrast 2: Total Dose (mL): MEASUREMENTS (Male / Female) Normal Values FINDINGS Left Ventricle Left ventricle not well visualized. Right Ventricle Right ventricle not well visualized. Right Atrium Right atrium not well visualized. Left Atrium Left atrium not well visualized. Mitral Valve Structurally normal mitral valve. Aortic Valve Aortic valve not well visualized. Tricuspid Valve Tricuspid valve not well visualized. Pulmonic Valve Pulmonic valve not well visualized. Pericardium No pericardial effusion. Prominent epicardial fat. Aorta Aortic root and proximal ascending aorta not well visualized. CONCLUSIONS Patient was not cooperative this is a poor quality study with the limited images for that reason. I cannot make any meaningful conclusion but LV function appears to be impaired to mild to moderate extent Previewed by: Dr. Kisha Dinh MD (Electronically Signed) Final Date: 01 February 2024 12:01
--- NOTE | 2024-02-01 20:55 | P.DS ---
Providers Date of admission: 01/29/24 16:43 Expected date of discharge: 02/01/24 Attending physician: Jaime Jovel Consults: 01/29/24 16:42 Consult Physician Urgent Consulting Provider: [facility] Consult Reason/Comments: Elevated troponin Do you want consulting provider notified?: Yes Primary care physician: Patrice Seals [facility] Course: Chief Complaint: , Short of breath 73-year-old male with a PMH of cognitive delay, left arm fracture with contracture, hypothyroidism, hyperlipidemia, seizure disorder, resident of [facility], To her ER from [facility]. Patient was initially seen at this family doctor's office 2 days prior Nancy's on Thursday with cough short of breath. Was prescribed antibiotics. Symptoms got worse and he presented to [facility]. At the [facility] had a temperature 100.7 and also had productive cough. Patient himself is a poor historian. Does question about some pain he reported in his neck/chest. Troponin at [facility] was 0.077 hence he was transferred here. January 29: Patient appears to be more comfortable. Speaking slowly slowed able to understand speech better. Denies any chest pain. Per cardiology patient to continue with aspirin and Imdur. 2D echo has been ordered. Chest x-ray shows infiltrates. Will add IV ceftriaxone. January 30: Resting in bed. Intermittent cough. Pending 2D echo. On IV ceftriaxone. Decreased appetite. Remind about supervised feeding. Changed to chopped diet January 31: No fluid. Tolerating diet. Breathing much better. Cleared by cardiology. Will complete a short course of Ceftin. Social history: Resident of [facility]. Physical examination: VITAL SIGNS: 98.3, 71, 18, 128 x 80, 93% room air GENERAL: Laying in bed, comfortable. EYES: Pupils equal. Conjunctiva normal.. HEENT: Patient constantly moves his tongue in and out of the mouth. NECK: JVD not raised; masses not palpable. HEART: First and second heart sounds are normal; no edema. LUNGS: Respiratory rate normal; decreased breath sounds. ABDOMEN: Soft, nontender, liver spleen not palpable, no masses palpable. PSYCH: Unable to assess MUSCULAR skeletal: Limited range of motion left arm. Left forearm contracture NEUROLOGICAL: Slow speech but able to understand INVESTIGATIONS, reviewed in the clinical context: January 30: White count 9.1 hemoglobin 9.7 platelets 3TC potassium 3.6 creatinine 0.56. Procalcitonin 0.60 Troponin I 0.064, 0.054, 0.049 EKG tracing personally reviewed by me-ST-T wave changes. Specially lateral leads. Sinus rhythm. Chest x-ray film personally reviewed by me-infiltrates Investigation from [facility] White count 12 hemoglobin 12 platelets 248 sodium 134 potassium 3 BUN 16.7 creatinine 0.59 Troponin I 0.077. proBNP 3050 D-dimer 3.22 Assessment and plan: -Possible reported anterior chest wall pain. In a patient who is not a good historian.: Likely musculoskeletal Troponin at [place] 0.077. Here 0.064 Telemetry. Cardiology following 2D echo not a very good quality. Some impairment in LV function.-Follow-up pathology outpatient -Troponinemia likely from underlying pneumonia. Doubt [facility] Cardiology following -Multilobar pneumonia, suspect gram-negative organism Zithromax. 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 History of Any Multi-Drug Resistant Organisms: MRSA Date of last positivie culture/infection: 10/05/20 MDRO Source:: MRSA BUTTOCK Additional Past Surgical History / Comment(s): Left arm broken; surgical repair. Shunt placed 1970. Past Anesthesia/Blood Transfusion Reactions: No Reported Reaction Past Psychological History: No Psychological Hx Reported Smoking Status: Unknown if ever smoked Past Alcohol Use History: None Reported Past Drug Use History: None Reported Plan - Discharge Summary Discharge Rx Participant: No New Discharge Prescriptions: New cefuroxime axetiL [Ceftin] 500 mg PO BID #6 tab guaiFENesin [Mucinex] 600 mg PO BID #14 tab Isosorbide Mononitrate ER [Imdur] 30 mg PO DAILY #30 tab Nitroglycerin Sl Tabs [Nitrostat] 0.4 mg SUBLINGUAL Q5M PRN #30 tab PRN Reason: Chest Pain Continue Aspirin EC [Ecotrin Low Dose] 81 mg PO DAILY@0700 Phenytoin Sodium Extended [Dilantin] 100 mg PO BID@0700,2099 Ascorbic Acid [Vitamin C] 500 mg PO BID@0700,2099 Tolterodine [Detrol] 2 mg PO BID@0700,2100 Sennosides/Docusate Sodium [Senna-S 8.6-50 mg Tablet] 2 tab PO BID@0700,2099 Budesonide [Pulmicort] 0.5 mg INHALATION RT-BID PRN PRN Reason: Shortness Of Breath bisacodyL [Dulcolax] 5 mg PO DAILY@0700 Ferrous Sulfate [Iron (65 MG Elemental)] 325 mg PO DAILY@1700 Magnesium Hydroxide [Milk of Magnesia] 2,400 - 4,800 mg PO DAILY PRN MDD 4,800mg (60ml) PRN Reason: Constipation Cyanocobalamin (Vitamin B-12) [Vitamin B-12] 1,000 mcg PO DAILY@0700 QUEtiapine XR [SEROquel XR] 200 mg PO HS@2100 Midodrine HCl [ProAmantine] 2.5 mg PO BID@0700,2100 Atorvastatin [Lipitor] 10 mg PO HS@2100 Cholecalciferol [Vitamin D3 (125 Mcg = 5000 Iu)] 125 mcg PO DAILY@0700 QUEtiapine [SEROquel] 200 mg PO HS@2100 L.acidoph,Paracasei, B.lactis [Probiotic] 1 cap PO BID@0700,2100 lamoTRIgine [LaMICtal] 50 mg PO DAILY@0700 Meloxicam [Mobic] 7.5 mg PO DAILY@0700 Levothyroxine Sodium [Synthroid] 75 mcg PO DAILY@0700 Ipratropium-Albuterol Nebulize [Duoneb 0.5 mg-3 mg/3 ml Soln] 3 ml INHALATION RT-TID PRN PRN Reason: Shortness Of Breath Apixaban [Eliquis] 2.5 mg PO BID@0700,2100 Lactulose [Constulose] 20 gm PO BID@0700,1700 Benzonatate [Tessalon Perle] 200 mg PO TID@07,17,21 PRN PRN Reason: Cough Diclofenac Sodium Gel [Voltaren 1% Gel] 2 gm TOPICAL QID PRN PRN Reason: LEFT HAND PAIN Furosemide [Lasix] 20 mg PO DAILY@0700 PARoxetine [Paxil] 20 mg PO HS@2099 Changed Sodium Chloride Tab 1 gm PO BID #0 Discontinued Amoxic-Pot Clav 875-125Mg [Augmentin 875-125] 1 tab PO BID@699,2099 Zinc Gluconate [Zinc] 50 mg PO DAILY@0700 Discharge Medication List Aspirin EC [Ecotrin Low Dose] 81 mg PO DAILY@0710/05/20 [History] Atorvastatin [Lipitor] 10 mg PO HS@209910/05/20 [History] Cyanocobalamin (Vitamin B-12) [Vitamin B-12] 1,000 mcg PO DAILY@69910/05/20 [History] Midodrine HCl [ProAmantine] 2.5 mg PO BID@0700,209910/05/20 [History] Phenytoin Sodium Extended [Dilantin] 100 mg PO BID@0700,209910/05/20 [History] QUEtiapine XR [SEROquel XR] 200 mg PO HS@209910/05/20 [History] Apixaban [Eliquis] 2.5 mg PO BID@0700,209906/29/23 [History] Ascorbic Acid [Vitamin C] 500 mg PO BID@07,209906/29/23 [History] Benzonatate [Tessalon Perle] 200 mg PO TID@ PRN 06/29/23 [History] Budesonide [Pulmicort] 0.5 mg INHALATION RT-BID PRN 06/29/23 [History] Cholecalciferol [Vitamin D3 (125 Mcg = 5000 Iu)] 125 mcg PO DAILY@69906/29/23 [History] Ipratropium-Albuterol Nebulize [Duoneb 0.5 mg-3 mg/3 ml Soln] 3 ml INHALATION RT-TID PRN 06/29/23 [History] L.acidoph,Paracasei, B.lactis [Probiotic] 1 cap PO BID@0700,209906/29/23 [History] Lactulose [Constulose] 20 gm PO BID@0700,1700 06/29/23 [History] Levothyroxine Sodium [Synthroid] 75 mcg PO DAILY@0706/29/23 [History] Meloxicam [Mobic] 7.5 mg PO DAILY@69906/29/23 [History] QUEtiapine [SEROquel] 200 mg PO HS@209906/29/23 [History] Sennosides/Docusate Sodium [Senna-S 8.6-50 mg Tablet] 2 tab PO BID@699,209906/29/23 [History] Tolterodine [Detrol] 2 mg PO BID@699,209906/29/23 [History] lamoTRIgine [LaMICtal] 50 mg PO DAILY@69906/29/23 [History] Diclofenac Sodium Gel [Voltaren 1% Gel] 2 gm TOPICAL QID PRN 01/29/24 [History] Ferrous Sulfate [Iron (65 MG Elemental)] 325 mg PO DAILY@169901/29/24 [History] Furosemide [Lasix] 20 mg PO DAILY@69901/29/24 [History] Magnesium Hydroxide [Milk of Magnesia] 2,400 - 4,800 mg PO DAILY PRN MDD 4,800mg (60ml) 01/29/24 [History] PARoxetine [Paxil] 20 mg PO HS@209901/29/24 [History] bisacodyL [Dulcolax] 5 mg PO DAILY@69901/29/24 [History] Isosorbide Mononitrate ER [Imdur] 30 mg PO DAILY #30 tab 02/01/24 [Rx] Nitroglycerin Sl Tabs [Nitrostat] 0.4 mg SUBLINGUAL Q5M PRN #30 tab 02/01/24 [Rx] Sodium Chloride Tab 1 gm PO BID #0 02/01/24 [Rx] cefuroxime axetiL [Ceftin] 500 mg PO BID #6 tab 02/01/24 [Rx] guaiFENesin [Mucinex] 600 mg PO BID #14 tab 02/01/24 [Rx] Follow up Appointment(s)/Referral(s): cardiology, [Other] - 1 Week Patrice Seals MD [Primary Care Provider] - 1-2 days Discharge Disposition: HOME WITH HOME HEALTH SERVICES
== END 2024-02-01 16:26 | disposition home health service (06) | DRG 178 ==
LOC: EC 16:04 → 3SCARD 16:43
PROVIDERS: ADMIT Hospitalist; ATTEND Hospitalist
DX: J15.69 Pneumonia due to other Gram-negative bacteria (principal); E87.1 Hypo-osmolality and hyponatremia; Z79.01 Long term (current) use of anticoagulants; D64.9 Anemia, unspecified; E03.9 Hypothyroidism, unspecified; E78.5 Hyperlipidemia, unspecified; F32.A Depression, unspecified; F41.9 Anxiety disorder, unspecified; F79 Unspecified intellectual disabilities; G40.909 Epilepsy, unspecified, not intractable, without status epilepticus; I50.9 Heart failure, unspecified; J20.9 Acute bronchitis, unspecified; Z79.1 Long term (current) use of non-steroidal anti-inflammatories (NSAID); Z79.51 Long term (current) use of inhaled steroids; Z79.82 Long term (current) use of aspirin; Z79.890 Hormone replacement therapy; I95.1 Orthostatic hypotension; Z79.899 Other long term (current) drug therapy
CPT/HCPCS: 36415; 71045; 80048; 80061; 80164; 80185; 84145; 84484; 85025; 93005; 93308; 99285